=== PATIENT | male | born 1955 | race Caucasian/White ===

== ENCOUNTER 2023-07-04 08:27 | Inpatient (IN) ==
[2023-07-04] MEDS: SODIUM CHLORIDE 0.9% 1,000 ML IV SCH (08:55)
[2023-07-04] MEDS: ACETAMINOPHEN 1,000 MG/100 ML VIAL IV STA (08:58)
[2023-07-04 09:13] LABS: Basophils # (auto) 0.04 K/uL (0.00-0.20); Basophils % (auto) 0.6 %; Eosinophils # (auto) 0.22 K/uL (0.00-0.50); Eosinophils % (auto) 3.3 %; Hematocrit (blood only) 47.2 % (42.0-52.0); Hemoglobin 16.4 g/dl (14.0-18.0); Immature Granulocytes # (auto) 0.01 K/uL (0.01-0.20); Immature Granulocytes % (auto) 0.1 %; Lymphocytes # (auto) 0.98 K/uL (1.20-3.40); Lymphocytes % (auto) 14.6 %; Mean Corpuscular Hemoglobin 30.2 pg (25.0-34.0); Mean Corpuscular Hgb Conc 34.7 g/dL (32.0-36.0); Mean Corpuscular Volume 86.9 fL (80.0-100.0); Mean Platelet Volume 11.3 fL (9.4-12.4); Monocytes % (auto) 7.5 %; Neutrophils # (auto) 4.94 K/uL (1.40-6.50); Neutrophils % (auto) 73.9 %; Platelet Count 188 K/uL (130-400); RDW Coefficient of Variation 14.8 % (11.5-14.5); RDW Standard Deviation 46.8 fL (36.4-46.3); Red Blood Count 5.43 M/uL (4.70-6.10); White Blood Count 6.69 K/ul (4.8-10.8)
[2023-07-04] MEDS: OPTIRAY 320 125ml IV ONE ×2 (09:13→18:32)
[2023-07-04 09:16] LABS: iSTAT Creatinine 1.1 mg/dl (0.6-1.3); iSTAT Ionized Calcium 1.08 mmol/l (1.12-1.32)
--- NOTE | 2023-07-04 09:23 | Emergency Department Note ---
Impression & Plan Dizziness, Headache, Vision changes, Hypertension ED Provider Note ED Provider Note NAME: ELVIRA WILKS AGE:68 SEX: Male : 1955 ARRIVES VIA: Private vehicle INFORMANT: Patient, ED PROVIDER(s): Yee Hahn DO CHIEF COMPLAINT: Dizziness, headaches, high blood pressure HPI: This is a 68-year-old male presents emergency department with dizziness, headaches, high blood pressure. states he has been having episodes of headaches and blurred vision over the last several weeks of they have been trying to change his blood pressure medication for better control. They feel he is having side effects of these and are scheduled to see their family doctor today to discuss this. He states yesterday evening headache started worsening and he had blurred vision into the overnight. Around 1 AM he had an episode of vomiting and then became more dizzy and the headache started to subside. He states that this time he feels no headache just significant dizziness. He does have a very remote history of vertigo and states this is worse. He states he also now has double vision. He states he feels that the left upper extremity is slightly weak and hypersensitive. He denies chest pain, difficulty breathing, abdominal pain, leg weakness, neck or back pain. denies any recent change in speech or voice. PAST MEDICAL HISTORY:See Below PAST SURGICAL HISTORY:See Below FAMILY HISTORY:See Below SOCIAL HISTORY:See Below HOME MEDICATIONS:See Below ALLERGIES:See Below VITALS:See Below PHYSICAL EXAMINATION: GENERAL: alert, ill appearing, well nourished, moderate distress, non-toxic EYE EXAM: normal conjunctiva, PERRL and EOM's grossly intact, no nystagmus OROPHARYNX: no exudate, no erythema, lips, buccal mucosa, and tongue normal and mucous membranes are moist NECK: supple, no nuchal rigidity, no adenopathy, non-tender LUNGS: Clear to auscultation. Normal chest wall mechanics, no w/r/r HEART: no murmurs, S1 normal and S2 normal ABDOMEN: abdomen soft, non-tender, normo-active bowel sounds, no masses, no rebound or guarding. BACK: Back is symmetrical on inspection and there is no deformity, no midline tenderness, no CVA tenderness. SKIN: no rashes, petechiae, orbruising UPPER EXTREMITIES: upper extremities are grossly normal. FROM, nml pulses b/l. Subjective hypersensitivity with light touch to left upper extremity, slightly decreased handgrip compared to right. Clubbing noted bilateral digits with yellow discoloration from tobacco abuse. LOWER EXTREMITIES: No pitting edema. FROM, nml pulses b/l. Equal strength bilaterally. NEURO EXAM: Normal sensorium, cranial nerves II-XII grossly intact, normal speech, no facial droop,nogross weakness of arms, no gross weakness of legs. Gross sensation intact. No ataxia. Vital Signs: reviewed and remarkable Differential Diagnosis: benign positional vertigo, dehydration, hypovolemia, anemia, tumor, hypoglycemia, electrolyte abnormalities, ICH, CVA, dysrhythmia, as well as others were entertained. MEDICAL DECISION MAKING: This is a 68-year-old male presents emergency room due to concern for recent headaches, vision changes, and significant dizziness and was found to have significant hypertension. Patient with history of hypertension but they have had difficulty managing as an outpatient per patient and family report. Patient noted to be significantly hypertensive here on arrival however other vital signs stable. Labs drawn and sent, IV established, EKG and CXR performed and interpreted at bedside, and patient placed on telemetry. Patient sent for CT/CTA. No acute findings or CVA noted. Patient did respond to IV hydralazine, and caution was used to allow some permissive hypertension given his history. He was also given IV Valium for his persistent vertigo as well as in consideration for prior history of alcohol abuse. Patient did have some improvement but not resolution of his symptoms. Patient did require additional IV hydralazine. Due to concern for significant hypertension and symptoms, consideration for hypertensive emergency or posterior CVA, as well as need for other symptomatic control, case discussed with the hospitalist team for additional evaluation and management. Consultation(s): 1420: DIscussed with DENISE Fuentes, [facility] hospitalist team, for additional evaluation and mgmt. ER Treatment Provided: See below Diagnostics Interpreted By Me: -ECG: Sinus bradycardia at 58, normal axis, normal intervals, nonspecific ST/T wave changes -Cardiac Monitoring: An order was placed for continuous cardiac monitoring. The monitor shows a rate of 58 with sinus bradycardia rhythm. -Laboratory studies: As stated above and show below. -Imaging studies: X-ray Chest: A single view study of the chest was reviewed and was negative for cardiomegaly, focal infiltrate, effusion, pulmonary edema, or wide mediastinum. Triage Nursing Note Reviewed Prior/Outside Records Reviewed Critical Care: Past Med/Surg History Medical History CKD (chronic kidney disease) stage 3, GFR 30-59 ml/min Hypertension Family History Father Stroke Brother Stroke Social History (Updated 07/04/23 @ 15:06 by Gina Saldana PA-C) Smoking Status: Current every day smoker Tobacco Type: Cigarettes Age Started Using Tobacco: 11; Hx Alcohol Use: Yes Alcohol Intake Frequency Comment: abstinent for 39 years Hx Substance Use: Yes Non-Prescribed Medications: Marijuana Preferred Language: Amharic Feels Safe at Home: Yes Allergies Allergies Allergy/AdvReac Type Severity Reaction Status Date / Time NONE Allergy Unknown Uncoded 11/29/02 05:57 Home Meds Home Medications Medication Instructions Recorded Confirmed carvedilol 25 mg tablet 25 mg PO QAM 07/04/23 07/04/23 felodipine 10 mg tablet,extended 10 mg PO QAM 07/04/23 07/04/23 release 24 hr loratadine 10 mg tablet (Claritin) 10 mg PO DAILY PRN ALLERGIES 07/04/23 07/04/23 losartan 100 mg tablet 100 mg PO DAILY 07/04/23 07/04/23 Results & Data (ED) Vital Signs Vital Signs - 24 hr 07/04/23 08:31 07/04/23 08:39 07/04/23 09:30 Temperature 36.9 C Temperature Source Temporal Artery Scan Pulse Rate 62 49 L Pulse Rate [Apical] 53 L Pulse Rate from SpO2 Sensor Respiratory Rate 16 14 12 Respiratory Effort / Characteristics Non-Labored Respiratory Depth Normal Blood Pressure 219/121 H Blood Pressure [Right Arm] 221/138 H Blood Pressure Mean 153 Blood Pressure Mean [Right Arm] 165 Pulse Oximetry 97 Oxygen Delivery Method Room Air Room Air Sepsis Recent Fever Within 48 Hours No Sepsis New/Unexplained Change in Mental Status No Sepsis Action Taken by Nursing No Action Required 07/04/23 09:31 07/04/23 09:31 07/04/23 10:00 Temperature Temperature Source Pulse Rate 57 L 71 Pulse Rate [Apical] Pulse Rate from SpO2 Sensor 53 L 69 Respiratory Rate 12 24 Respiratory Effort / Characteristics Respiratory Depth Blood Pressure 202/95 H Blood Pressure [Right Arm] Blood Pressure Mean 123 Blood Pressure Mean [Right Arm] Pulse Oximetry 96 97 Oxygen Delivery Method Room Air Sepsis Recent Fever Within 48 Hours Sepsis New/Unexplained Change in Mental Status Sepsis Action Taken by Nursing 07/04/23 10:05 07/04/23 10:05 07/04/23 10:30 Temperature Temperature Source Pulse Rate 61 Pulse Rate [Apical] Pulse Rate from SpO2 Sensor 58 L Respiratory Rate Respiratory Effort / Characteristics Respiratory Depth Blood Pressure 178/89 H 185/95 H Blood Pressure [Right Arm] Blood Pressure Mean 141 126 Blood Pressure Mean [Right Arm] Pulse Oximetry 96 Oxygen Delivery Method Room Air Sepsis Recent Fever Within 48 Hours Sepsis New/Unexplained Change in Mental Status Sepsis Action Taken by Nursing 07/04/23 10:30 07/04/23 11:00 07/04/23 11:00 Temperature Temperature Source Pulse Rate 53 L 59 L Pulse Rate [Apical] Pulse Rate from SpO2 Sensor 56 L Respiratory Rate 20 14 Respiratory Effort / Characteristics Respiratory Depth Blood Pressure 172/99 H Blood Pressure [Right Arm] Blood Pressure Mean 107 Blood Pressure Mean [Right Arm] Pulse Oximetry 96 Oxygen Delivery Method Room Air Sepsis Recent Fever Within 48 Hours Sepsis New/Unexplained Change in Mental Status Sepsis Action Taken by Nursing 07/04/23 11:30 07/04/23 11:30 07/04/23 12:00 Temperature Temperature Source Pulse Rate 55 L Pulse Rate [Apical] Pulse Rate from SpO2 Sensor 55 L Respiratory Rate 14 Respiratory Effort / Characteristics Respiratory Depth Blood Pressure 159/85 H 171/95 H Blood Pressure [Right Arm] Blood Pressure Mean 120 125 Blood Pressure Mean [Right Arm] Pulse Oximetry 95 Oxygen Delivery Method Room Air Sepsis Recent Fever Within 48 Hours Sepsis New/Unexplained Change in Mental Status Sepsis Action Taken by Nursing 07/04/23 12:00 07/04/23 12:30 07/04/23 12:30 Temperature Temperature Source Pulse Rate 52 L 52 L Pulse Rate [Apical] Pulse Rate from SpO2 Sensor 52 L 53 L Respiratory Rate 20 19 Respiratory Effort / Characteristics Respiratory Depth Blood Pressure 181/86 H Blood Pressure [Right Arm] Blood Pressure Mean 147 Blood Pressure Mean [Right Arm] Pulse Oximetry 97 96 Oxygen Delivery Method Room Air Room Air Sepsis Recent Fever Within 48 Hours Sepsis New/Unexplained Change in Mental Status Sepsis Action Taken by Nursing 07/04/23 13:00 07/04/23 13:01 07/04/23 13:01 Temperature Temperature Source Pulse Rate 78 75 Pulse Rate [Apical] Pulse Rate from SpO2 Sensor 78 Respiratory Rate 15 16 Respiratory Effort / Characteristics Respiratory Depth Blood Pressure 181/103 H Blood Pressure [Right Arm] Blood Pressure Mean 117 Blood Pressure Mean [Right Arm] Pulse Oximetry 96 Oxygen Delivery Method Room Air Sepsis Recent Fever Within 48 Hours Sepsis New/Unexplained Change in Mental Status Sepsis Action Taken by Nursing 07/04/23 13:30 07/04/23 13:31 07/04/23 13:31 Temperature Temperature Source Pulse Rate 60 64 Pulse Rate [Apical] Pulse Rate from SpO2 Sensor Respiratory Rate 21 17 Respiratory Effort / Characteristics Respiratory Depth Blood Pressure 179/92 H Blood Pressure [Right Arm] Blood Pressure Mean 102 Blood Pressure Mean [Right Arm] Pulse Oximetry Oxygen Delivery Method Sepsis Recent Fever Within 48 Hours Sepsis New/Unexplained Change in Mental Status Sepsis Action Taken by Nursing 07/04/23 14:00 07/04/23 14:01 07/04/23 14:01 Temperature Temperature Source Pulse Rate 55 L 57 L Pulse Rate [Apical] Pulse Rate from SpO2 Sensor 59 L 58 L Respiratory Rate 17 18 Respiratory Effort / Characteristics Respiratory Depth Blood Pressure 183/100 H Blood Pressure [Right Arm] Blood Pressure Mean 122 Blood Pressure Mean [Right Arm] Pulse Oximetry 95 94 Oxygen Delivery Method Room Air Room Air Sepsis Recent Fever Within 48 Hours Sepsis New/Unexplained Change in Mental Status Sepsis Action Taken by Nursing 07/04/23 14:30 07/04/23 14:30 07/04/23 15:00 Temperature Temperature Source Pulse Rate 56 L 54 L Pulse Rate [Apical] Pulse Rate from SpO2 Sensor 62 57 L Respiratory Rate 15 14 Respiratory Effort / Characteristics Respiratory Depth Blood Pressure 166/111 H 195/89 H Blood Pressure [Right Arm] Blood Pressure Mean 130 124 Blood Pressure Mean [Right Arm] Pulse Oximetry 96 96 Oxygen Delivery Method Room Air Sepsis Recent Fever Within 48 Hours Sepsis New/Unexplained Change in Mental Status Sepsis Action Taken by Nursing Laboratory Data 07/04/23 08:52 07/04/23 08:52 Lab Results 07/04/23 07/04/23 07/04/23 Range/Units 08:52 09:02 15:01 WBC 6.69 (4.8-10.8) K/ul RBC 5.43 (4.70-6.10) M/uL Hgb 16.4 (14.0-18.0) g/dl POC Hgb 17.0 (14.0-18.0) g/dl Hct 47.2 (42.0-52.0) % POC Hct 50 (42-52) % MCV 86.9 (80.0-100.0) fL MCH 30.2 (25.0-34.0) pg MCHC 34.7 (32.0-36.0) g/dL RDW Std Deviation 46.8 H (36.4-46.3) fL RDW Coeff of Tova 14.8 H (11.5-14.5) % Plt Count 188 (130-400) K/uL MPV 11.3 (9.4-12.4) fL Immature Gran % (Auto) 0.1 % Neut % (Auto) 73.9 % Lymph % (Auto) 14.6 % Pepin % (Auto) 7.5 % Eos % (Auto) 3.3 % Baso % (Auto) 0.6 % Neut # (Auto) 4.94 (1.40-6.50) K/uL Lymph # (Auto) 0.98 L (1.20-3.40) K/uL Pepin # (Auto) 0.50 (0.11-0.59) K/uL Eos # (Auto) 0.22 (0.00-0.50) K/uL Baso # (Auto) 0.04 (0.00-0.20) K/uL Immature Gran # (Auto) 0.01 (0.01-0.20) K/uL POC Sodium 140 (135-144) mmol/L Sodium 137 (136-145) mmol/L POC Potassium 4.0 (3.3-5.0) mmol/L Potassium 4.0 (3.5-5.1) mmol/L POC Chloride 106 (101-112) mmol/L Chloride 107 (98-107) mmol/L Carbon Dioxide 25 (21-32) mmol/L POC Total CO2 23 L (24-31) mmol/L Anion Gap 5 (3-11) POC Anion Gap 17.0 (16-25) mmol/L POC BUN 20 H (7-18) mg/dl BUN 19 (6-23) mg/dl Creatinine 1.11 (0.6-1.4) mg/dl POC Creatinine 1.1 (0.6-1.3) mg/dl Est Cr Clr Drug Dosing Not Reportable Est GFR ( Amer) 78.1 ml/min Est GFR (Non-Af Amer) 67.4 ml/min BUN/Creatinine Ratio 17.1 (10-20) Glucose 117 H (70-99(Fasting)) mg/dl POC Glucose (other) 117 H (70-99) mg/dl Calcium 9.3 (8.6-10.3) mg/dl POC Ioniz Calcium Jasson 1.08 L (1.12-1.32) mmol/l Magnesium 2.0 (1.7-2.4) mg/dl Total Bilirubin 0.7 (0.2-1.0) mg/dl AST 10 L (13-39) U/L ALT 8 (7-52) U/L Alkaline Phosphatase 62 (34-104) U/L Troponin I High Sens 18.9 (0-20) pg/ml Total Protein 7.7 (6.0-8.3) gm/dl Albumin 4.5 (3.4-5.0) gm/dl Globulin 3.2 (2.5-4.0) gm/dl Albumin/Globulin Ratio 1.4 (0.9-2) Lipase 4 L (11-82) U/L TSH 1.494 (0.300-4.500) uIu/ml Urine Color Yellow Urine Appearance Clear (Clear) Urine pH 7.0 (4.5-7.5) Ur Specific [place] 1.021 (1.000-1.030) Urine Protein 1+ H (Negative) Urine Glucose (UA) Negative (Negative) Urine Ketones Negative (Negative) Urine Blood Negative (Negative) Urine Nitrite Negative (Negative) Urine Bilirubin Negative (Negative) Urine Urobilinogen Negative (Negative) Ur Leukocyte Esterase Negative (Negative) Urine WBC (Auto) 0 (0-5) /hpf Urine RBC (Auto) 0-4 (0-4) /hpf U Hyaline Cast (Auto) 0 (0-5) /lpf U Epithel Cells (Auto) 5-10 H (0-5) /lpf Urine Bacteria (Auto) Negative (Negative) Ur Random Creatinine 51.4 mg/dl U Random Total Protein 37.7 H (0-11.9) mg/dl Protein/Creatinin Ratio 0.7 H (0-0.2) 07/04/23 Range/Units 15:34 WBC (4.8-10.8) K/ul RBC (4.70-6.10) M/uL Hgb (14.0-18.0) g/dl POC Hgb (14.0-18.0) g/dl Hct (42.0-52.0) % POC Hct (42-52) % MCV (80.0-100.0) fL MCH (25.0-34.0) pg MCHC (32.0-36.0) g/dL RDW Std Deviation (36.4-46.3) fL RDW Coeff of Tova (11.5-14.5) % Plt Count (130-400) K/uL MPV (9.4-12.4) fL Immature Gran % (Auto) % Neut % (Auto) % Lymph % (Auto) % Pepin % (Auto) % Eos % (Auto) % Baso % (Auto) % Neut # (Auto) (1.40-6.50) K/uL Lymph # (Auto) (1.20-3.40) K/uL Pepin # (Auto) (0.11-0.59) K/uL Eos # (Auto) (0.00-0.50) K/uL Baso # (Auto) (0.00-0.20) K/uL Immature Gran # (Auto) (0.01-0.20) K/uL POC Sodium (135-144) mmol/L Sodium (136-145) mmol/L POC Potassium (3.3-5.0) mmol/L Potassium (3.5-5.1) mmol/L POC Chloride (101-112) mmol/L Chloride (98-107) mmol/L Carbon Dioxide (21-32) mmol/L POC Total CO2 (24-31) mmol/L Anion Gap (3-11) POC Anion Gap (16-25) mmol/L POC BUN (7-18) mg/dl BUN (6-23) mg/dl Creatinine (0.6-1.4) mg/dl POC Creatinine (0.6-1.3) mg/dl Est Cr Clr Drug Dosing Est GFR ( Amer) ml/min Est GFR (Non-Af Amer) ml/min BUN/Creatinine Ratio (10-20) Glucose (70-99(Fasting)) mg/dl POC Glucose (other) (70-99) mg/dl Calcium (8.6-10.3) mg/dl POC Ioniz Calcium Jasson (1.12-1.32) mmol/l Magnesium (1.7-2.4) mg/dl Total Bilirubin (0.2-1.0) mg/dl AST (13-39) U/L ALT (7-52) U/L Alkaline Phosphatase (34-104) U/L Troponin I High Sens 20.0 (0-20) pg/ml Total Protein (6.0-8.3) gm/dl Albumin (3.4-5.0) gm/dl Globulin (2.5-4.0) gm/dl Albumin/Globulin Ratio (0.9-2) Lipase (11-82) U/L TSH (0.300-4.500) uIu/ml Urine Color Urine Appearance (Clear) Urine pH (4.5-7.5) Ur Specific [place] (1.000-1.030) Urine Protein (Negative) Urine Glucose (UA) (Negative) Urine Ketones (Negative) Urine Blood (Negative) Urine Nitrite (Negative) Urine Bilirubin (Negative) Urine Urobilinogen (Negative) Ur Leukocyte Esterase (Negative) Urine WBC (Auto) (0-5) /hpf Urine RBC (Auto) (0-4) /hpf U Hyaline Cast (Auto) (0-5) /lpf U Epithel Cells (Auto) (0-5) /lpf Urine Bacteria (Auto) (Negative) Ur Random Creatinine mg/dl U Random Total Protein (0-11.9) mg/dl Protein/Creatinin Ratio (0-0.2) Administered Medications Sodium Chloride (Nss) 1,000 mls @ 125 mls/hr IV .Q8H JAYLYN Stop: 08/03/23 08:59 Last Infusion: 07/04/23 13:18 Dose: Infused Documented By: Admin: 07/04/23 08:55 Dose: 125 mls/hr Documented By: OSIEL Nicardipine HCl 25 mg/ Sodium (Chloride) 250 mls @ 50 mls/hr IV .Q5H JAYLYN; Protocol Stop: 08/03/23 14:29 Last Admin: 07/04/23 14:47 Dose: 5 mg/hr, 50 mls/hr Documented By: OSIEL Co-signed By: BK Discontinued Medications Diazepam (Diazepam 5 Mg/Ml 10ml Vial) 2 mg IV NOW STA Stop: 07/04/23 10:32 Last Admin: 07/04/23 10:54 Dose: 2 mg Documented By: OSIEL Hydralazine HCl (Hydralazine Hcl 20 Mg/Ml Vial) 5 mg IV NOW ONE Stop: 07/04/23 09:30 Last Admin: 07/04/23 09:47 Dose: 5 mg Documented By: OSIEL Hydralazine HCl (Hydralazine Hcl 20 Mg/Ml Vial) 5 mg IV NOW ONE Stop: 07/04/23 13:06 Last Admin: 07/04/23 13:18 Dose: 5 mg Documented By: OSIEL Acetaminophen (Ofirmev) 1,000 mg in 100 mls @ 400 mls/hr IV NOW STA Stop: 07/04/23 09:00 Last Infusion: 07/04/23 09:13 Dose: Infused Documented By: Admin: 07/04/23 08:58 Dose: 400 mls/hr Documented By: OSIEL Ioversol (Optiray 320 125ml) 118 ml IV ONCE ONE Stop: 07/04/23 09:21 Last Admin: 07/04/23 09:13 Dose: 118 ml Documented By: BELINDA Imaging Data Radiologist's Impression: Head CT 07/04/23 08:46 CT OF THE HEAD WITHOUT CONTRAST CLINICAL HISTORY: dizzy, garza, vision change, htn COMPARISON STUDY: Head CT July 28, 2011. CT DOSE: 969.54 mGy.cm TECHNIQUE: Helical axial images of the head were obtained without IV contrast. Automated exposure control was utilized for the study. A dose lowering technique was utilized adhering to the principles of ALARA. FINDINGS: No acute intracranial hemorrhage, midline shift or mass effect is present. White matter hypodensity suggests small vessel disease. The ventricular system is unremarkable. The basal cisterns are patent. No extra-axial collections are present. There are no findings to suggest acute dural sinus thrombosis or acute territorial infarct. No calvarial fracture is present. There is minimal ethmoid sinus mucosal thickening. IMPRESSION: No acute intracranial findings. ACT 112: Negative or not required by law. Electronically signed by: Judson White M.D. 07/04/2023 9:24 AM Head CTA 07/04/23 08:46 CT angio head w con CLINICAL HISTORY: 68 years-old Male with dizzy, garza, htn, vision change. Acute dizziness with headache COMPARISON STUDY: Head CT of same day TECHNIQUE: Following the IV administration of 118 cc of Optiray, CT angiogram of the brain was performed from the skull base to the vertex. Images are reviewed in the axial, sagittal, and coronal planes. 3-D MIPS images are created and assessed. IV contrast was administered without complication. All measurements were obtained according to NASCET criteria. A dose lowering technique was utilized adhering to the principles of ALARA. FINDINGS: CT ANGIOGRAM OF THE BRAIN: Atherosclerosis with mild to moderate narrowing of the distal internal carotid arteries. There is moderate multifocal stenoses involving the middle cerebral arteries, most pronounced in the M1 segments. The anterior cerebral arteries are widely patent. The vertebral arteries are patent. Mild stenosis of the mid basilar artery with mild multifocal stenosis of the posterior cerebral arteries. There is no aneurysm, high-grade stenosis, or proximal branch occlusion identified. Dural sinuses appear patent. IMPRESSION: 1. No aneurysm, dissection, high-grade stenosis or arterial occlusion. 2. Mild to moderate multifocal stenoses of the intracranial arteries as above. ACT 112: Negative or not required by law. The above report was generated using voice recognition software. It may contain grammatical, syntax or spelling errors. Electronically signed by: Ervin Messina M.D. 07/04/2023 9:56 AM Neck CTA 07/04/23 08:46 CT ANGIOGRAPHY OF THE NECK WITH CONTRAST CLINICAL HISTORY: dizzy, garza, htn, vision change COMPARISON STUDY: No previous studies for comparison. Technique: CT angiography of the carotid and vertebral arteries was obtained using Optiray and 3D reconstruction on an independent workstation. NASCET criteria was utilized. Automated exposure control was utilized for the study. A dose lowering technique was utilized adhering to the principles of ALARA. Findings: Moderate emphysema is incidentally noted within visualized portions of the lung apices. There is no cervical lymphadenopathy. No cervical spine fracture is noted. There is moderate atherosclerotic plaque within the left carotid bifurcation without significant stenosis. There is mild plaque within the proximal right internal carotid artery without stenosis. The left vertebral artery is dominant. There is no stenosis or dissection within the bilateral vertebral arteries. IMPRESSION: 1. Moderate atherosclerotic plaque within the left carotid bifurcation without significant stenosis. 2. No dissection, aneurysm or significant stenosis within the major vessels within the neck. 3. Emphysema. ACT 112: Negative or not required by law. Electronically signed by: Judson White M.D. 07/04/2023 9:34 AM Chest X-Ray 07/04/23 08:47 XR chest 1V portable CLINICAL HISTORY: Hypertension. Vomiting. COMPARISON STUDY: Chest radiograph and chest CT July 28, 2011. FINDINGS: Emphysema is present. Lung volumes are normal. Lungs are clear. There is no pneumothorax or pleural effusion. There is mild cardiomegaly. Mediastinal contours are normal. There is no evidence for pulmonary edema. IMPRESSION: No acute cardiopulmonary findings. Emphysema. ACT 112: Negative or not required by law. Electronically signed by: Judson White M.D. 07/04/2023 9:40 AM Renal Artery Duplex 07/04/23 15:29 US duplex renal artery CLINICAL HISTORY: Evaluate for renal artery stenosis. COMPARISON STUDY: No previous studies for comparison. TECHNIQUE: Color and duplex Doppler sonography of the abdominal aorta and renal arteries was performed. FINDINGS: The proximal abdominal aorta is ectatic, measuring approximately 2.7 cm in caliber. There is moderate plaque within the proximal abdominal aorta. Peak systolic velocity within the abdominal aorta was 53 cm/s. Bilateral renal arteries and veins are patent. There was no hydronephrosis. Peak systolic velocity within the right renal artery was 190 cm/s. There was an elevated peak systolic velocity of 390 cm/s within the proximal left renal artery. Segmental waveforms within the kidneys were normal. IMPRESSION: 1. Significantly elevated velocity within the proximal left renal artery suggestive of renal artery stenosis. CTA of the abdomen could be obtained for confirmation. 2. No definite sonographic evidence for right renal artery stenosis. 3. Ectatic proximal abdominal aorta with moderate plaque. ACT 112: Negative or not required by law. Electronically signed by: Judson White M.D. 07/04/2023 4:53 PM Discharge Plan Visit Data Chief Complaint: TIA Symptoms Stated Complaint: DIZZINESS, LIGHTHEADED, BLURRED VISION, HIGH BP ED Provider: Yee Hahn Discharge Problem: Dizziness, Headache, Vision changes, Hypertension Forms Stand Alone Forms: [employer] Prescriptions Prescriptions: No Action carvedilol 25 mg tablet 25 mg PO QAM Rx Instructions: Patients stated that her has only been taking once a day felodipine 10 mg tablet extended release 24 hr 10 mg PO QAM loratadine [Claritin] 10 mg Tablet 10 mg PO DAILY PRN (Reason: ALLERGIES) losartan 100 mg tablet 100 mg PO DAILY Referrals Referrals: Duran Green MD [Primary Care Provider] -
--- NOTE | 2023-07-04 09:25 | CT Scan Report ---
CT OF THE HEAD WITHOUT CONTRAST CLINICAL HISTORY: dizzy, garza, vision change, htn COMPARISON STUDY: Head CT July 28, 2011. CT DOSE: 969.54 mGy.cm TECHNIQUE: Helical axial images of the head were obtained without IV contrast. Automated exposure con trol was utilized for the study. A dose lowering technique was utilized adhering to the principles o f ALARA. FINDINGS: No acute intracranial hemorrhage, midline shift or mass effect is present. White matter hyp odensity suggests small vessel disease. The ventricular system is unremarkable. The basal cisterns ar e patent. No extra-axial collections are present. There are no findings to suggest acute dural sinus thrombosis or acute territorial infarct. No calvarial fracture is present. There is minimal ethmoid s inus mucosal thickening. IMPRESSION: No acute intracranial findings. ACT 112: Negative or not required by law. Electronically signed by: Judson White M.D. 07/04/2023 9:24 AM
[2023-07-04 09:29] LABS: Alanine Aminotransferase 8 U/L (7-52); Albumin Globulin Ratio 1.4 (0.9-2); Albumin Level 4.5 gm/dl (3.4-5.0); Alkaline Phosphatase 62 U/L (34-104); Anion Gap 5 (3-11); Aspartate Aminotransferase 10 U/L (13-39); BUN Creatinine Ratio 17.1 (10-20); Bilirubin,Total 0.7 mg/dl (0.2-1.0); Blood Urea Nitrogen 19 mg/dl (6-23); Calcium 9.3 mg/dl (8.6-10.3); Carbon Dioxide 25 mmol/L (21-32); Chloride 107 mmol/L (98-107); Est GFR (African American) 78.1 ml/min; Est GFR (Non-African American) 67.4 ml/min; Globulin 3.2 gm/dl (2.5-4.0); Glucose 117 mg/dl (70-99(Fasting)); Lipase 4 U/L (11-82); Sodium 137 mmol/L (136-145); Total Protein 7.7 gm/dl (6.0-8.3)
[2023-07-04 09:35] LABS: Troponin I High Sensitivity 18.9 pg/ml (0-20)
--- NOTE | 2023-07-04 09:37 | CT Scan Report ---
CT ANGIOGRAPHY OF THE NECK WITH CONTRAST CLINICAL HISTORY: dizzy, garza, htn, vision change COMPARISON STUDY: No previous studies for comparison. Technique: CT angiography of the carotid and vertebral arteries was obtained using Optiray and 3D rec onstruction on an independent workstation. NASCET criteria was utilized. Automated exposure control was utilized for the study. A dose lowering technique was utilized adhering to the principles of ALA RA. Findings: Moderate emphysema is incidentally noted within visualized portions of the lung apices. The re is no cervical lymphadenopathy. No cervical spine fracture is noted. There is moderate atheroscler otic plaque within the left carotid bifurcation without significant stenosis. There is mild plaque wi thin the proximal right internal carotid artery without stenosis. The left vertebral artery is domina nt. There is no stenosis or dissection within the bilateral vertebral arteries. IMPRESSION: 1. Moderate atherosclerotic plaque within the left carotid bifurcation without significant stenosis. 2. No dissection, aneurysm or significant stenosis within the major vessels within the neck. 3. Emphysema. ACT 112: Negative or not required by law. Electronically signed by: Judson White M.D. 07/04/2023 9:34 AM
--- NOTE | 2023-07-04 09:41 | XRay Report ---
XR chest 1V portable CLINICAL HISTORY: Hypertension. Vomiting. COMPARISON STUDY: Chest radiograph and chest CT July 28, 2011. FINDINGS: Emphysema is present. Lung volumes are normal. Lungs are clear. There is no pneumothorax or pleural effusion. There is mild cardiomegaly. Mediastinal contours are normal. There is no evidence for pulmonary edema. IMPRESSION: No acute cardiopulmonary findings. Emphysema. ACT 112: Negative or not required by law. Electronically signed by: Judson White M.D. 07/04/2023 9:40 AM
[2023-07-04 09:45] LABS: Thyroid Stimulating Hormone 1.494 uIu/ml (0.300-4.500)
[2023-07-04] MEDS: hydrALAZINE HCL 20 MG/ML VIAL IV ONE ×2 (09:47→13:18)
--- NOTE | 2023-07-04 09:58 | CT Scan Report ---
CT angio head w con CLINICAL HISTORY: 68 years-old Male with dizzy, garza, htn, vision change. Acute dizziness with heada sarai COMPARISON STUDY: Head CT of same day TECHNIQUE: Following the IV administration of 118 cc of Optiray, CT angiogram of the brain was perfor med from the skull base to the vertex. Images are reviewed in the axial, sagittal, and coronal planes . 3-D MIPS images are created and assessed. IV contrast was administered without complication. All me asurements were obtained according to NASCET criteria. A dose lowering technique was utilized adherin g to the principles of ALARA. FINDINGS: CT ANGIOGRAM OF THE BRAIN: Atherosclerosis with mild to moderate narrowing of the distal internal carotid arteries. There is mod erate multifocal stenoses involving the middle cerebral arteries, most pronounced in the M1 segments. The anterior cerebral arteries are widely patent. The vertebral arteries are patent. Mild stenosis o f the mid basilar artery with mild multifocal stenosis of the posterior cerebral arteries. There is n o aneurysm, high-grade stenosis, or proximal branch occlusion identified. Dural sinuses appear patent . IMPRESSION: 1. No aneurysm, dissection, high-grade stenosis or arterial occlusion. 2. Mild to moderate multifocal stenoses of the intracranial arteries as above. ACT 112: Negative or not required by law. The above report was generated using voice recognition software. It may contain grammatical, syntax o r spelling errors. Electronically signed by: Ervin Messina M.D. 07/04/2023 9:56 AM
[2023-07-04] MEDS: diazePAM 5 MG/ML 10ML VIAL IV STA (10:54)
--- NOTE | 2023-07-04 11:04 | Electrocardiogram Report ---
Test Reason : Blood Pressure : / mmHG Vent. Rate : 058 BPM Atrial Rate : 058 BPM P-R Int : 176 ms QRS Dur : 100 ms QT Int : 448 ms P-R-T Axes : 081 043 025 degrees QTc Int : 439 ms Sinus bradycardia Left atrial enlargement Left ventricular hypertrophy with repolarization abnormality Abnormal ECG When compared with ECG of 28-JUL-2011 10:07, Left ventricular hypertrophy with repolarization abnormality now present Confirmed by Luis Miguel Henson ([id number]) on 07/04/2023 11:03:59 AM Referred By: REFERRED SELF Confirmed By:Luis Miguel Henson
[2023-07-04] MEDS ORDERED: STAT IV Infusion **Titration per Protocol STA (14:20)
[2023-07-04] MEDS: niCARdipine 25 MG in SODIUM CHLORIDE 0.9% 240 ML IV SCH (14:47)
--- NOTE | 2023-07-04 15:09 | History & Physical Report ---
Date of Service July 04, 2023 Assessment & Plan (1) Hypertensive emergency: (2) Vision changes: (3) Tobacco abuse: Plan This is a 68 yr old M who has a significant PMH of HTN and CKD3 who presents to ED 2/2 double vision, GONZALEZ and dizziness since last night. Hypertensive emergency Visual changes (diplopia) Headache/Vertigo admit to PCU stroke work up obtain MRI brain w and w/o consult neurology obtain echocardiogram secondary hypertensive w/u with renal duplex, catecholamines, serum alexandru/renin place on nicardipine gtt for BP control hold home dose felodipine while on nicardipine hold coreg (pt bradycardic and ? if pt fatigue, malaise and dizziness related to low heart rate) resume losartan in a.m. CKD-3 baseline cr 1.3-1.4 cr. 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 Meyers, please see addendum A total of 76 minutes was spent coordinating, documenting, and providing care for this patient excluding time spent in the performance of separately billed services. This included personally viewing all current laboratories and imaging studies, medication reconciliation, outpatient chart review, and discussion with specialists. History of Present Illness Chief Complaint: GONZALEZ, double vision, dizziness x 1 day. Primary Care Provider: Duran Green MD This is a 68 yr old M who has a significant PMH of HTN and CKD3 who presents to ED 2/2 double vision, GONZALEZ and dizziness since last night. His outpatient PCP records were reviewed. is a bedside who also helps with history. He has a baseline cr of 1.3-1.4. He follows with Dr. Green and has been having difficulty with BP management over last several months. He has been managed on Losartan, coreg and felodipine. He states he hasn't felt right since taking these medications. Over the last 1 month he was taking all of his medications. He has been monitoring his BP at home. His blood pressure would be labile. He states he would feel best when his blood pressure ran high and when it would go lower with the medications he felt like, "crap." He did not take any medications this morning. He also has not been taking his losartan for the past week. Over the last month he denies any changes. He did have sinus congestion approx 2 weeks ago, but denies any fever and chills. He states he has been having chest pain off and on in ED, left sided, non radiating and would come and go. He feels SOB when he takes his BP medications. He states blurry/double vision started last night. Feels like objects are stacked on top of 1 another. He also complains of dizziness and feeling, "off balance." He denies any current fever, chills, sweats, lightheadedness, syncope, hemoptysis, cough, nausea, vomiting, abdominal pain, change in bowel or urinary habits. He has a positive FH of stroke. His father was 87 and his brother also had a stroke in past. In ED patient was significantly hypertensive despite 2 doses of IV hydralazine 5 mg. He underwent head CT, CTA and chest x-ray. Head CT revealed mild to moderate multifocal stenoses of the intracranial arteries but otherwise no acute abnormality. Emphysema also noted on chest x-ray. Allergies Allergy/AdvReac Type Severity Reaction Status Date / Time NONE Allergy Unknown Uncoded 11/29/02 05:57 Home Medications Medication Instructions Recorded Confirmed Type carvedilol 25 mg tablet 25 mg PO QAM 07/04/23 07/04/23 History felodipine 10 mg tablet,extended 10 mg PO QAM 07/04/23 07/04/23 History release 24 hr loratadine 10 mg tablet (Claritin) 10 mg PO DAILY PRN ALLERGIES 07/04/23 07/04/23 History losartan 100 mg tablet 100 mg PO DAILY 07/04/23 07/04/23 History Past Med/Surg History Medical History CKD (chronic kidney disease) stage 3, GFR 30-59 ml/min Hypertension Family History Father Stroke Brother Stroke Social History (Updated 07/04/23 @ 15:06 by Gina Saldana PA-C) Smoking Status: Current every day smoker Tobacco Type: Cigarettes Age Started Using Tobacco: 11; Hx Alcohol Use: Yes Alcohol Intake Frequency Comment: abstinent for 39 years Hx Substance Use: Yes Non-Prescribed Medications: Marijuana Preferred Language: Kinyarwanda Feels Safe at Home: Yes Review of Systems Review of Systems: All systems reviewed & are unremarkable except as noted in HPI & below Physical Exam Physical Exam: please refer to Dr. Meyers addendum for physical exam findings. Results & Data Results & Data Vital Signs (Past 12 Hours) Vital Signs Temp Pulse Pulse Resp BP BP Pulse Ox 07/04/23 14:01 57 L 18 94 07/04/23 14:01 183/100 H 07/04/23 14:00 55 L 17 95 07/04/23 13:31 64 17 07/04/23 13:31 179/92 H 07/04/23 13:30 60 21 07/04/23 13:01 75 16 07/04/23 13:01 181/103 H 07/04/23 13:00 78 15 96 07/04/23 12:30 52 L 19 96 07/04/23 12:30 181/86 H 07/04/23 12:00 52 L 20 97 07/04/23 12:00 171/95 H 07/04/23 11:30 55 L 14 95 07/04/23 11:30 159/85 H 07/04/23 11:00 59 L 14 96 07/04/23 11:00 172/99 H 07/04/23 10:30 53 L 20 07/04/23 10:30 185/95 H 07/04/23 10:05 61 96 07/04/23 10:05 178/89 H 07/04/23 10:00 71 24 97 07/04/23 09:31 57 L 12 96 07/04/23 09:31 202/95 H 07/04/23 09:30 49 L 12 07/04/23 08:39 53 L 14 221/138 H 07/04/23 08:31 36.9 C 62 16 219/121 H 97 O2 Del Method 07/04/23 14:01 Room Air 07/04/23 14:01 07/04/23 14:00 Room Air 07/04/23 13:31 07/04/23 13:31 07/04/23 13:30 07/04/23 13:01 07/04/23 13:01 07/04/23 13:00 Room Air 07/04/23 12:30 Room Air 02/06/24 12:30 07/04/23 12:00 Room Air 07/04/23 12:00 07/04/23 11:30 Room Air 07/04/23 11:30 07/04/23 11:00 Room Air 07/04/23 11:00 07/04/23 10:30 07/04/23 10:30 07/04/23 10:05 Room Air 07/04/23 10:05 07/04/23 10:00 07/04/23 09:31 Room Air 07/04/23 09:31 07/04/23 09:30 07/04/23 08:39 Room Air 07/04/23 08:31 Room Air Laboratory Results I have independently reviewed and interpreted patient's admitting labs including CBC, CMP, PTT, PT/INR, mag, lipase and troponin. Diagnostic Findings Head CT 07/04/23 08:46 CT OF THE HEAD WITHOUT CONTRAST CLINICAL HISTORY: dizzy, gonzalez, vision change, htn COMPARISON STUDY: Head CT July 28, 2011. CT DOSE: 969.54 mGy.cm TECHNIQUE: Helical axial images of the head were obtained without IV contrast. Automated exposure control was utilized for the study. A dose lowering t echnique was utilized adhering to the principles of ALARA. FINDINGS: No acute intracranial hemorrhage, midline shift or mass effect is present. White matter hypodensity suggests small vessel disease. The ventricular system is unremarkable. The basal cisterns are patent. No extra-axial collections are present. There are no findings to suggest acute dural sinus thrombosis or acute territorial infarct. No calvarial fracture is present. There is minimal ethmoid sinus mucosal thickening. IMPRESSION: No acute intracranial findings. ACT 112: Negative or not required by law. Electronically signed by: Judson White M.D. 07/04/2023 9:24 AM Head CTA 07/04/23 08:46 CT angio head w con CLINICAL HISTORY: 68 years-old Male with dizzy, gonzalez, htn, vision change. Acute dizziness with headache COMPARISON STUDY: Head CT of same day TECHNIQUE: Following the IV administration of 118 cc of Optiray, CT angiogram of the brain was performed from the skull base to the vertex. Images are reviewed in the axial, sagittal, and coronal planes. 3-D MIPS images are created and assessed. IV contrast was administered without complication. All measurements we re obtained according to NASCET criteria. A dose lowering technique was utilized adhering to the principles of ALARA. FINDINGS: CT ANGIOGRAM OF THE BRAIN: Atherosclerosis with mild to moderate narrowing of the distal internal carotid arteries. There is moderate multifocal stenoses involving the middle cerebral arteries, most pronounced in the M1 segments. The anterior cerebral arteries are widely patent. The vertebral arteries are patent. Mild stenosis of the mid basilar artery with mild multifocal stenosis of the posterior cerebral arteries. There is no aneurysm, high-grade stenosis, or proximal branch occlusion identified. Dural sinuses appear patent. IMPRESSION: 1. No aneurysm, dissection, high-grade stenosis or arterial occlusion. 2. Mild to moderate multifocal stenoses of the intracranial arteries as above. ACT 112: Negative or not required by law. The above report was generated using voice recognition software. It may contain grammatical, syntax or spelling errors. Electronically signed by: Ervin Messina M.D. 07/04/2023 9:56 AM Neck CTA 07/04/23 08:46 CT ANGIOGRAPHY OF THE NECK WITH CONTRAST CLINICAL HISTORY: dizzy, gonzalez, htn, vision change COMPARISON STUDY: No previous studies for comparison. Technique: CT angiography of the carotid and vertebral arteries was obtained using Optiray and 3D reconstruction on an independent workstation. NASCET criteria was utilized. Automated exposure control was utilized for the study. A dose lowering technique was utilized adhering to the principles of ALARA. Findings: Moderate emphysema is incidentally noted within visualized portions of the lung apices. There is no cervical lymphadenopathy. No cervical spine fracture is noted. There is moderate atherosclerotic plaque within the left carotid bifurcation without significant stenosis. There is mild plaque within the proximal right internal carotid artery without stenosis. The left vertebral artery is dominant. There is no stenosis or dissection within the bilateral vertebral arteries. IMPRESSION: 1. Moderate atherosclerotic plaque within the left carotid bifurcation without significant stenosis. 2. No dissection, aneurysm or significant stenosis within the major vessels within the neck. 3. Emphysema. ACT 112: Negative or not required by law. Electronically signed by: Judson White M.D. 07/04/2023 9:34 AM Chest X-Ray 07/04/23 08:47 XR chest 1V portable CLINICAL HISTORY: Hypertension. Vomiting. COMPARISON STUDY: Chest radiograph and chest CT July 28, 2011. FINDINGS: Emphysema is present. Lung volumes are normal. Lungs are clear. There is no pneumothorax or pleural effusion. There is mild cardiomegaly. Mediastinal contours are normal. There is no evidence for pulmonary edema. IMPRESSION: No acute cardiopulmonary findings. Emphysema. ACT 112: Negative or not required by law. Electronically signed by: Judson White M.D. 07/04/2023 9:40 AM Medications Administered Medication List Sodium Chloride (Nss) 1,000 mls @ 125 mls/hr IV .Q8H JAYLYN Stop: 08/03/23 08:59 Last Infusion: 07/04/23 13:18 Dose: Infused Documented By: Admin: 07/04/23 08:55 Dose: 125 mls/hr Documented By: OSIEL Nicardipine HCl 25 mg/ Sodium (Chloride) 250 mls @ 50 mls/hr IV .Q5H [facility]; Protocol Stop: 08/03/23 14:29 Last Admin: 07/04/23 14:47 Dose: 5 mg/hr, 50 mls/hr Documented By: OSIEL Co-signed By: BK Discontinued Medications Diazepam (Diazepam 5 Mg/Ml 10ml Vial) 2 mg IV NOW STA Stop: 07/04/23 10:32 Last Admin: 07/04/23 10:54 Dose: 2 mg Documented By: OSIEL Hydralazine HCl (Hydralazine Hcl 20 Mg/Ml Vial) 5 mg IV NOW ONE Stop: 07/04/23 09:30 Last Admin: 07/04/23 09:47 Dose: 5 mg Documented By: OSIEL Hydralazine HCl (Hydralazine Hcl 20 Mg/Ml Vial) 5 mg IV NOW ONE Stop: 07/04/23 13:06 Last Admin: 07/04/23 13:18 Dose: 5 mg Documented By: OSIEL Acetaminophen (Ofirmev) 1,000 mg in 100 mls @ 400 mls/hr IV NOW STA Stop: 07/04/23 09:00 Last Infusion: 07/04/23 09:13 Dose: Infused Documented By: Admin: 07/04/23 08:58 Dose: 400 mls/hr Documented By: OSIEL Ioversol (Optiray 320 125ml) 118 ml IV ONCE ONE Stop: 07/04/23 09:21 Last Admin: 07/04/23 09:13 Dose: 118 ml Documented By: BELINDA ECG Rate (beats per minute): 58 Rhythm: sinus bradycardia Additional Comments: I have independently reviewed and interpreted patient's admitting EKG which revealed: SB 58bpm, no ST or T wave changes COVID-19 Results Results COVID-19 Adm Lab Results: RBC 5.43 M/uL (4.70-6.10) 07/04/23 WBC 6.69 K/ul (4.8-10.8) 07/04/23 Hgb 16.4 g/dl (14.0-18.0) 07/04/23 Hct 47.2 % (42.0-52.0) 07/04/23 Plt Count 188 K/uL (130-400) 07/04/23 Neutrophils (%) (Auto) 73.9 % 07/04/23 Lymphocytes (%) (Auto) 14.6 % 07/04/23 Monocytes # (Auto) 0.50 K/uL (0.11-0.59) 07/04/23 Eosinophils # (Auto) 0.22 K/uL (0.00-0.50) 07/04/23 Immature Granulocyte % (Auto) 0.1 % 07/04/23 Neutrophils # (Auto) 4.94 K/uL (1.40-6.50) 07/04/23 Lymphocytes # (Auto) 0.98 K/uL (1.20-3.40) L 07/04/23 Monocytes # (Auto) 0.50 K/uL (0.11-0.59) 07/04/23 Eosinophils # (Auto) 0.22 K/uL (0.00-0.50) 07/04/23 Basophils # (Auto) 0.04 K/uL (0.00-0.20) 07/04/23 Immature Granulocyte # (Auto) 0.01 K/uL (0.01-0.20) 4 Na 137 mmol/L (136-145) 07/04/23 K 4.0 mmol/L (3.5-5.1) 07/04/23 Cl 107 mmol/L (98-107) 07/04/23 CO2 25 mmol/L (21-32) 07/04/23 Anion Gap 5 (3-11) 07/04/23 BUN 19 mg/dl (6-23) 07/04/23 Creatinine 1.11 mg/dl (0.6-1.4) 07/04/23 BUN/Creatinine Ratio 17.1 (10-20) 07/04/23 Glucose Level 117 mg/dl (70-99(Fasting)) H 07/04/23 Ca 9.3 mg/dl (8.6-10.3) 07/04/23 Total Bilirubin 0.7 mg/dl (0.2-1.0) 07/04/23 AST/SGOT 10 U/L (13-39) L 07/04/23 ALT/SGPT 8 U/L (7-52) 07/04/23 Alkaline Phosphatase 62 U/L (34-104) 07/04/23 Total Protein 7.7 gm/dl (6.0-8.3) 07/04/23 Albumin 4.5 gm/dl (3.4-5.0) 07/04/23 Globulin 3.2 gm/dl (2.5-4.0) 07/04/23 Albumin/Globulin Ratio 1.4 (0.9-2) 07/04/23 Chest X-Ray 07/04/23 Code Status & VTE Plan Code Status FULL CODE VTE Prophylaxis Plan VTE Prophylaxis will be ordered: Yes Supervising Physician Co-Signing Physician Notes I have seen and discussed the case with the collaborating DENISE. I agree with the above H&P. I have reviewed and confirmed the patients medical history, the findings on physical examination, and the patients diagnosis and treatment plan with Shana WALKER and agree with the information documented. In short, Mr. Puente is a 68 year old gentleman with history of chronic tobacco use, hypertension, CKD who is being admitted for management of hypertensive emergency. Patient noted to have headache, vertical diplopia, and dizziness. Patient reports questionable history consistent with intermittent medication use/noncompliance 2/2 "not feeling right." GENERAL APPEARANCE: AxOx4,no acute distress, but appears mildly uncomfortable HEENT: NC, AT. MMM. EOMI, clear conjunctiva, oropharynx clear. +left beating nystagmus NECK: Supple without lymphadenopathy. No stiffness or restricted ROM. HEART: Normal rate and regular rhythm, normal S1/S1, no m/r/g LUNGS: CTAB, moving air well. No crackles or wheezes are heard. bilateral clubbing of finger tips ABDOMEN: Soft, nontender, nondistended with good bowel sounds heard. BACK: No CVAT, no obvious deformity. EXTREMITIES: Without cyanosis, clubbing or edema. NEUROLOGICAL: Grossly nonfocal. Alert CNII-CXII intact , moving all 4 extremities 5/5 strength. formal HINTs exam limited 2/2 Skin: Warm and dry without any rash. #Hypertensive Emergency, c/f hypertensive encephalopathy (diplopia/vision changes/headache) -MRI ordered r/o central vertigo 2/2 stroke -Neuro consult for eval for -Lipid panel in am -ECHO ordered -Nicardipine drip -Goal SBP 160 -Secondary Hypertensive workup: -Doppler with questionable left renal artery stenosis -Ordering CTA abdomen -Plan for vascular consult if positive -Renin activity ordered, urine metanephrines #Bradycardia -Discontinue Coreg and monitor on tele #Tobacco use counseled on cessation-not interested, nicotine patch Rest of plan as above I have reviewed the advanced practitioner's documentation, and I agree with, and take responsibility for the plan of care I spent a total of 55 minutes coordinating, documenting, and providing care for this patient excluding time spent in the performance of separately billed services. All of the aforementioned completed outside of collaborating with the assigned PA for a full treatment plan.
[2023-07-04 15:26] LABS: Appearance Urine Clear (Clear); Bacteria Urine Automated Negative (Negative); Bilirubin Urine Negative (Negative); Blood Urine Negative (Negative); Cast Urine Automated 0 /lpf (0-5); Color Urine Yellow; Glucose Urine UA Negative (Negative); Ketones Urine Negative (Negative); Leukocyte Esterase Urine Negative (Negative); Nitrite Urine Negative (Negative); Protein Urine 1+ (Negative); RBC Urine Automated 0-4 /hpf (0-4); Specific Gravity Urine 1.021 (1.000-1.030); Urobilinogen Urine Negative (Negative); WBC Urine Automated 0 /hpf (0-5)
[2023-07-04 15:29] LABS: Total Protein Urine Random 37.7 mg/dl (0-11.9)
[2023-07-04 15:34] LABS: Creatinine Urine Random 51.4 mg/dl; Protein Creatinine Ratio Urine 0.7 (0-0.2)
--- NOTE | 2023-07-04 16:55 | Ultrasound Report ---
US duplex renal artery CLINICAL HISTORY: Evaluate for renal artery stenosis. COMPARISON STUDY: No previous studies for comparison. TECHNIQUE: Color and duplex Doppler sonography of the abdominal aorta and renal arteries was timothy jenkins FINDINGS: The proximal abdominal aorta is ectatic, measuring approximately 2.7 cm in caliber. There i s moderate plaque within the proximal abdominal aorta. Peak systolic velocity within the abdominal ao rta was 53 cm/s. Bilateral renal arteries and veins are patent. There was no hydronephrosis. Peak sys tolic velocity within the right renal artery was 190 cm/s. There was an elevated peak systolic veloci ty of 390 cm/s within the proximal left renal artery. Segmental waveforms within the kidneys were nor mal. IMPRESSION: 1. Significantly elevated velocity within the proximal left renal artery suggestive of renal artery s tenosis. CTA of the abdomen could be obtained for confirmation. 2. No definite sonographic evidence for right renal artery stenosis. 3. Ectatic proximal abdominal aorta with moderate plaque. ACT 112: Negative or not required by law. Electronically signed by: Judson White M.D. 07/04/2023 4:53 PM
[2023-07-04] MEDS ORDERED: PHARMACIST DISCHARGE MED REC CONSULT PRN (18:48)
[2023-07-04] MEDS ORDERED: ACETAMINOPHEN 325 MG TAB PO PRN (18:48)
[2023-07-04] MEDS ORDERED: POLYETHYLENE (MIRALAX) 17 GM PACK PO PRN (18:48)
[2023-07-04] MEDS ORDERED: ONDANSETRON INJ 2 MG/ML 2 ML VIAL IV PRN (18:48)
[2023-07-04] MEDS ORDERED: MAGNESIUM HYDROXIDE SUSP 30 ML UDC PO PRN (18:48)
[2023-07-04] MEDS ORDERED: ALUMINUM/MAGNESIUM SUSP 30 ML UDC PO PRN (18:48)
--- NOTE | 2023-07-04 19:39 | CT Scan Report ---
CT angio abdomen pelvis w con CT DOSE: 539.29 mGy.cm CLINICAL HISTORY: Abnormal renal artery ultrasound. Assess for left-sided renal artery stenosis. TECHNIQUE: Multiaxial CT images of the abdomen and pelvis were performed following the intravenous ad ministration of contrast to evaluate the renal arteries. 3-D/maximal intensity projection images in t he sagittal and coronal planes were also obtained for the CTA portion of the examination. A dose low ering technique was utilized adhering to the principles of ALARA. COMPARISON STUDY: None. FINDINGS: There is moderate atherosclerotic plaque within the abdominal aorta and common iliac arteri es. This results in up to 40% focal stenosis within the mid abdominal aorta. This is best seen image 126. No significant stenosis within the bilateral common or external iliac arteries. The visualized f emoral arteries appear patent. Mild to moderate multifocal narrowing within the proximal bilateral in ternal iliac arteries. The celiac artery and superior mesenteric artery are widely patent. There is m oderate focal stenosis of up to 50% at the takeoff of the inferior mesenteric artery best seen on tariq ge 147. Otherwise, the mid to distal inferior mesenteric artery appears patent. The splenic artery ar ises from the superior mesenteric artery. There are 3 right renal arteries and 2 left renal arteries. The bilateral renal arteries are widely patent with no evidence for stenosis, occlusion, or aneurysm . Mild aneurysmal dilatation of the abdominal aorta measuring up to 4.0 x 3.5 cm. The lung bases are clear. No pneumoperitoneum. No pneumatosis. Posterior decompression within the low er lumbar spine. No acute fractures. The heart is mildly enlarged with mild left ventricular hypertro phy. A few scattered hypervascular foci within the liver with the largest in the right hepatic dome o n image 31 measuring 11 mm. These are indeterminate and could represent hypervascular lesions and/or perfusion variants. The gallbladder, adrenal glands, and pancreas are unremarkable. Peripherally calc ified splenic cyst measuring 1.8 cm. No hydronephrosis. Bilateral renal cysts with the largest on the left measuring 1.8 cm. No retroperitoneal lymphadenopathy. No pelvic lymphadenopathy or pelvic free fluid. The prostate gland is enlarged. Normal bladder. No bowel wall thickening or obstruction. Minna l appendix. IMPRESSION: 1. No evidence for renal artery stenosis. 2. A 4.0 x 3.5 cm infrarenal abdominal aortic aneurysm. 3. A few scattered hypervascular foci within the liver measuring 12 mm. These are indeterminate could represent hypervascular lesions and/or perfusion variants. The absence of a known malignancy these f avor benign lesions. 4. Additional findings as described above. ACT 112: Negative or not required by law. Electronically signed by: Bryan Townsend M.D. 07/04/2023 7:36 PM
--- NOTE | 2023-07-04 19:49 | Magnetic Resonance Report ---
Brain MRI WITHOUT CONTRAST HISTORY: Dizziness. Headache. Vision changes. TECHNIQUE: Multiplanar multisequence MRI of the brain was performed without the use of contrast. COMPARISON STUDY: Head CT 07/04/2023. FINDINGS: There is small focus of restricted diffusion within the left posterior occipital lobe measu ring 1.3 cm. This is consistent with an acute infarct. There may be an additional punctate focus of r estricted diffusion within the central pasquale measuring 5 mm on image 7. This likely represents an acut e lacunar infarct. There is also a punctate focus of restricted diffusion within the right occipital lobe on image 9 consistent with an acute lacunar infarct. The midline structures are intact. Mild muc osal thickening within the paranasal sinuses. The left mastoid air cells are clear. A few partially o pacified right mastoid air cells. The orbits are unremarkable. The major vascular flow-voids at the s kull base are well-maintained. The ventricles and sulci are within normal limits for age. Old lacunar infarct seen within the left thalamus. Old lacunar infarct seen within the cerebellar hemispheres. T here is no mass, hematoma, or midline shift. Periventricular and subcortical white matter T2 hyperint ense foci favor moderate microvascular ischemic change. Mild cytotoxic edema associated with the left posterior occipital lobe infarct. IMPRESSION: 1. A small acute left posterior occipital lobe infarct measuring 1.3 cm. 2. Acute punctate lacunar infarcts seen within the right occipital lobe and pasquale. 3. Moderate microvascular ischemic changes. ACT 112: Negative or not required by law. Electronically signed by: Bryan Townsend M.D. 07/04/2023 7:46 PM
[2023-07-04] MEDS: LACTATED RINGER'S 1,000 ML IV SCH (20:53)
[2023-07-04] MEDS: ASPIRIN CHEW 324 MG PO STA (20:54)
[2023-07-04] MEDS: ATORVASTATIN 40 MG TAB PO STA (20:54)
[2023-07-05 06:14] LABS: Basophils # (auto) 0.05 K/uL (0.00-0.20); Basophils % (auto) 0.7 %; Hematocrit (blood only) 45.3 % (42.0-52.0); Hemoglobin 15.8 g/dl (14.0-18.0); Immature Granulocytes # (auto) 0.02 K/uL (0.01-0.20); Immature Granulocytes % (auto) 0.3 %; Lymphocytes # (auto) 1.56 K/uL (1.20-3.40); Lymphocytes % (auto) 23.4 %; Mean Corpuscular Hemoglobin 30.3 pg (25.0-34.0); Mean Corpuscular Hgb Conc 34.9 g/dL (32.0-36.0); Mean Corpuscular Volume 86.8 fL (80.0-100.0); Mean Platelet Volume 11.2 fL (9.4-12.4); Neutrophils # (auto) 4.04 K/uL (1.40-6.50); Neutrophils % (auto) 60.6 %; Platelet Count 180 K/uL (130-400); RDW Coefficient of Variation 14.8 % (11.5-14.5); RDW Standard Deviation 47.3 fL (36.4-46.3); Red Blood Count 5.22 M/uL (4.70-6.10); White Blood Count 6.67 K/ul (4.8-10.8)
[2023-07-05 06:53] LABS: BUN Creatinine Ratio 15.9 (10-20); Calcium 9.1 mg/dl (8.6-10.3); Chol HDL Ratio 4.8 (0-5); Creatinine Clr Calc Pharmacy 59.7 ml/min; Est GFR (African American) 76.4 ml/min; Potassium 3.6 mmol/L (3.5-5.1)
[2023-07-05 07:08] LABS: Estimated Average Glucose 120 mg/dl; Hemoglobin A1C 5.8 % (4.5-5.6)
--- NOTE | 2023-07-05 09:17 | Hospitalist Progress Note ---
Date of Service July 05, 2023 Assessment & Plan (1) Hypertensive emergency: (2) Vision changes: (3) Tobacco abuse: Plan This is a 68 yr old M who has a significant PMH of HTN and CKD3 who presents to ED 2/2 double vision, GONZALEZ and dizziness since last night. Found to have CVA on MRI CVA Visual changes (diplopia) Headache/Vertigo Initially attributed pt's symptoms to uncontrolled hypertension. Was found to have CVA. Brain MR - 1. A small acute left posterior occipital lobe infarct measuring 1.3 cm. 2. Acute punctate lacunar infarcts seen within the right occipital lobe and pasquale. 3. Moderate microvascular ischemic changes. Head CT - No acute intracranial findings. Head CTA - 1. No aneurysm, dissection, high-grade stenosis or arterial occlusion. 2. Mild to moderate multifocal stenoses of the intracranial arteries as above. Neck CTA - 1. Moderate atherosclerotic plaque within the left carotid bifurcation without significant stenosis. 2. No dissection, aneurysm or significant stenosis within the major vessels within the neck. 3. Emphysema. Neurology consulted - Stroke with cerebral ischemia: Elfego Puente is a 68 yo M presenting with embolic stroke throughout the posterior circulation. I suspect this is secondary to athero in the posterior circulation vessels rather than a cardioembolic source. While HTN is important to manage with a goal BP of <120/70, this is not the primary cause of his stroke. This is not PRES seen with hypertensive emergency. Recommend he continues BP control appointments with his PCP. Agree with aspirin 81mg daily and lipitor 40mg daily to address his ICAD. -- Continue aspirin 81mg daily -- Continue Lipitor 40mg daily -- Continue BP control as an outpatient -- Consider cardiac event monitor through PCP office for paroxysmal afib -- Please contact us with any further questions, patient can follow-up with neurology in 4-6 weeks. Hypertensive emergency PCU initially place on nicardipine gtt for BP control on admission - that was stopped and pt on PO meds hold home dose felodipine while on nicardipine hold coreg (pt bradycardic and ? if pt fatigue, malaise and dizziness related to low heart rate) resumed losartan and amlodipine was added Echocardiogram obtained -EF 60 to 65%. Mild concentric LVH. Pulse-wave TDI of the anterior and posterior mitral annulus demonstrates abnormal LV relaxation. No significant valvular pathology. secondary hypertension w/u with renal duplex, catecholamines, serum alexandru/renin (bloodwork pending) Renal US initailly concerning for renal artery stenosis however CTA abd/pelvis was obtained - and did not confirm this. It did show AAA. CTA - 1. No evidence for renal artery stenosis. 2. A 4.0 x 3.5 cm infrarenal abdominal aortic aneurysm. 3. A few scattered hypervascular foci within the liver measuring 12 mm. These are indeterminate could represent hypervascular lesions and/or perfusion variants. The absence of a known malignancy these favor benign lesions. AAA - control BP as above - follow up with vascular surgery CKD-3 baseline cr 1.3-1.4 cr. 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 Green Admission and Anticipated Discharge Date Admission Date: July 04, 2023 Subjective Pt seen in follow up of diplopia, uncontrolled HTN, found to have CVA Currently sitting up in NAD, reports his diplopia is resolved, feeling well, also denies any headache, or chest pain, no palpitations No fever, chills, abd. pain, no n/v Review of Systems Review of Systems: All systems reviewed & are unremarkable except as noted in Subjective Physical Exam Physical Exam: GENERAL APPEARANCE: AxOx4,no acute distress HEENT: NC, AT. MMM. EOMI, clear conjunctiva, oropharynx clear. NECK: Supple HEART: rrr,, normal S1/S1, no m/r/g LUNGS: CTAB, moving air well. No crackles or wheezes are heard. ABDOMEN: Soft, nontender, nondistended with good bowel sounds heard. EXTREMITIES: moves extremities NEUROLOGICAL: Awake alert oriented, speech fluent, no facial asymmetry, answers appropriately, moves extremities. Skin: Warm and dry without any rash. Results & Data Results & Data Vital Signs (Past 12 Hours) Vital Signs Temp Pulse Pulse Resp BP Pulse Ox O2 Del Method 07/05/23 07:31 36.5 C 56 L 19 166/96 H 95 Room Air 07/05/23 03:00 36.9 C 55 L 19 164/90 H 95 Room Air 07/05/23 02:37 52 L 168/85 H 07/05/23 01:37 53 L 159/80 H 07/05/23 00:45 77 143/89 H 07/04/23 23:00 37.1 C 54 L 20 150/79 H 94 Room Air 07/04/23 22:53 58 L 130/66 07/04/23 21:58 63 07/04/23 21:50 69 142/77 H Laboratory Results 07/05/23 07/05/23 07/04/23 Range/Units 05:43 00:46 15:34 WBC 6.67 (4.8-10.8) K/ul RBC 5.22 (4.70-6.10) M/uL Hgb 15.8 (14.0-18.0) g/dl POC Hgb (14.0-18.0) g/dl Hct 45.3 (42.0-52.0) % POC Hct (42-52) % MCV 86.8 (80.0-100.0) fL MCH 30.3 (25.0-34.0) pg MCHC 34.9 (32.0-36.0) g/dL RDW Std Deviation 47.3 H (36.4-46.3) fL RDW Coeff of Tova 14.8 H (11.5-14.5) % Plt Count 180 (130-400) K/uL MPV 11.2 (9.4-12.4) fL Immature Gran % (Auto) 0.3 % Neut % (Auto) 60.6 % Lymph % (Auto) 23.4 % [place] % (Auto) 9.0 % Eos % (Auto) 6.0 % Baso % (Auto) 0.7 % Neut # (Auto) 4.04 (1.40-6.50) K/uL Lymph # (Auto) 1.56 (1.20-3.40) K/uL [place] # (Auto) 0.60 H (0.11-0.59) K/uL Eos # (Auto) 0.40 (0.00-0.50) K/uL Baso # (Auto) 0.05 (0.00-0.20) K/uL Immature Gran # (Auto) 0.02 (0.01-0.20) K/uL POC Sodium (135-144) mmol/L Sodium 139 (136-145) mmol/L POC Potassium (3.3-5.0) mmol/L Potassium 3.6 (3.5-5.1) mmol/L POC Chloride (101-112) mmol/L Chloride 108 H (98-107) mmol/L Carbon Dioxide 22 (21-32) mmol/L POC Total CO2 (24-31) mmol/L Anion Gap 9 (3-11) POC Anion Gap (16-25) mmol/L POC BUN (7-18) mg/dl BUN 18 (6-23) mg/dl Creatinine 1.13 (0.6-1.4) mg/dl POC Creatinine (0.6-1.3) mg/dl Est Cr Clr Drug Dosing 59.7 Est GFR ( Amer) 76.4 ml/min Est GFR (Non-Af Amer) 66.0 ml/min BUN/Creatinine Ratio 15.9 (10-20) Glucose 95 (70-99(Fasting)) mg/dl POC Glucose (other) (70-99) mg/dl Estimat Average Glucose 120 mg/dl Hemoglobin A1c 5.8 H (4.5-5.6) % Calcium 9.1 (8.6-10.3) mg/dl POC Ioniz Calcium Jasson (1.12-1.32) mmol/l Magnesium (1.7-2.4) mg/dl Total Bilirubin (0.2-1.0) mg/dl AST (13-39) U/L ALT (7-52) U/L Alkaline Phosphatase (34-104) U/L Troponin I High Sens 20.0 (0-20) pg/ml Total Protein (6.0-8.3) gm/dl Albumin (3.4-5.0) gm/dl Globulin (2.5-4.0) gm/dl Albumin/Globulin Ratio (0.9-2) Triglycerides 124 (0-150) mg/dl Cholesterol 200 (0-200) mg/dl LDL Cholesterol, Calc 133 mg/dl VLDL Cholesterol, Calc 25 (0-30) mg/dl HDL Cholesterol 42 mg/dl Cholesterol/HDL Ratio 4.8 (0-5) Lipase (11-82) U/L Renin Activity Pending Aldosterone Pending TSH (0.300-4.500) uIu/ml Dopamine Pending Epinephrine Pending Norepinephrine Pending Total Catecholamines Pending Urine Color Urine Appearance (Clear) Urine pH (4.5-7.5) Ur Specific [place] (1.000-1.030) Urine Protein (Negative) Urine Glucose (UA) (Negative) Urine Ketones (Negative) Urine Blood (Negative) Urine Nitrite (Negative) Urine Bilirubin (Negative) Urine Urobilinogen (Negative) Ur Leukocyte Esterase (Negative) Urine WBC (Auto) (0-5) /hpf Urine RBC (Auto) (0-4) /hpf U Hyaline Cast (Auto) (0-5) /lpf U Epithel Cells (Auto) (0-5) /lpf Urine Bacteria (Auto) (Negative) Ur Random Creatinine mg/dl U Random Total Protein (0-11.9) mg/dl Ur Alvo Metanephrines Pending Protein/Creatinin Ratio (0-0.2) U Normetanephrine Pending U Total Metanephrines Pending Urine Creatinine Pending 07/04/23 07/04/23 07/04/23 Range/Units 15:01 09:02 08:52 WBC 6.69 (4.8-10.8) K/ul RBC 5.43 (4.70-6.10) M/uL Hgb 16.4 (14.0-18.0) g/dl POC Hgb 17.0 (14.0-18.0) g/dl Hct 47.2 (42.0-52.0) % POC Hct 50 (42-52) % MCV 86.9 (80.0-100.0) fL MCH 30.2 (25.0-34.0) pg MCHC 34.7 (32.0-36.0) g/dL RDW Std Deviation 46.8 H (36.4-46.3) fL RDW Coeff of Tova 14.8 H (11.5-14.5) % Plt Count 188 (130-400) K/uL MPV 11.3 (9.4-12.4) fL Immature Gran % (Auto) 0.1 % Neut % (Auto) 73.9 % Lymph % (Auto) 14.6 % [place] % (Auto) 7.5 % Eos % (Auto) 3.3 % Baso % (Auto) 0.6 % Neut # (Auto) 4.94 (1.40-6.50) K/uL Lymph # (Auto) 0.98 L (1.20-3.40) K/uL [place] # (Auto) 0.50 (0.11-0.59) K/uL Eos # (Auto) 0.22 (0.00-0.50) K/uL Baso # (Auto) 0.04 (0.00-0.20) K/uL Immature Gran # (Auto) 0.01 (0.01-0.20) K/uL POC Sodium 140 (135-144) mmol/L Sodium 137 (136-145) mmol/L POC Potassium 4.0 (3.3-5.0) mmol/L Potassium 4.0 (3.5-5.1) mmol/L POC Chloride 106 (101-112) mmol/L Chloride 107 (98-107) mmol/L Carbon Dioxide 25 (21-32) mmol/L POC Total CO2 23 L (24-31) mmol/L Anion Gap 5 (3-11) POC Anion Gap 17.0 (16-25) mmol/L POC BUN 20 H (7-18) mg/dl BUN 19 (6-23) mg/dl Creatinine 1.11 (0.6-1.4) mg/dl POC Creatinine 1.1 (0.6-1.3) mg/dl Est Cr Clr Drug Dosing Not Reportable Est GFR ( Amer) 78.1 ml/min Est GFR (Non-Af Amer) 67.4 ml/min BUN/Creatinine Ratio 17.1 (10-20) Glucose 117 H (70-99(Fasting)) mg/dl POC Glucose (other) 117 H (70-99) mg/dl Estimat Average Glucose mg/dl Hemoglobin A1c (4.5-5.6) % Calcium 9.3 (8.6-10.3) mg/dl POC Ioniz Calcium Jasson 1.08 L (1.12-1.32) mmol/l Magnesium 2.0 (1.7-2.4) mg/dl Total Bilirubin 0.7 (0.2-1.0) mg/dl AST 10 L (13-39) U/L ALT 8 (7-52) U/L Alkaline Phosphatase 62 (34-104) U/L Troponin I High Sens 18.9 (0-20) pg/ml Total Protein 7.7 (6.0-8.3) gm/dl Albumin 4.5 (3.4-5.0) gm/dl Globulin 3.2 (2.5-4.0) gm/dl Albumin/Globulin Ratio 1.4 (0.9-2) Triglycerides (0-150) mg/dl Cholesterol (0-200) mg/dl LDL Cholesterol, Calc mg/dl VLDL Cholesterol, Calc (0-30) mg/dl HDL Cholesterol mg/dl Cholesterol/HDL Ratio (0-5) Lipase 4 L (11-82) U/L Renin Activity Aldosterone TSH 1.494 (0.300-4.500) uIu/ml Dopamine Epinephrine Norepinephrine Total Catecholamines Urine Color Yellow Urine Appearance Clear (Clear) Urine pH 7.0 (4.5-7.5) Ur Specific [place] 1.021 (1.000-1.030) Urine Protein 1+ H (Negative) Urine Glucose (UA) Negative (Negative) Urine Ketones Negative (Negative) Urine Blood Negative (Negative) Urine Nitrite Negative (Negative) Urine Bilirubin Negative (Negative) Urine Urobilinogen Negative (Negative) Ur Leukocyte Esterase Negative (Negative) Urine WBC (Auto) 0 (0-5) /hpf Urine RBC (Auto) 0-4 (0-4) /hpf U Hyaline Cast (Auto) 0 (0-5) /lpf U Epithel Cells (Auto) 5-10 H (0-5) /lpf Urine Bacteria (Auto) Negative (Negative) Ur Random Creatinine 51.4 mg/dl U Random Total Protein 37.7 H (0-11.9) mg/dl Ur Alvo Metanephrines Protein/Creatinin Ratio 0.7 H (0-0.2) U Normetanephrine U Total Metanephrines Urine Creatinine Medications Administered Current Inpatient Medications Acetaminophen (Acetaminophen 325 Mg Tab) 650 mg PO Q4H PRN PRN Reason: Pain or Fever Stop: 08/03/23 18:47 Al Hydrox/Mg Hydrox/Simethicone (Aluminum/Magnesium Susp 30 Ml Udc) 15 ml PO Q4H PRN PRN Reason: Dyspepsia Stop: 08/03/23 18:47 Aspirin (Aspirin 81 Mg Ectab) 81 mg PO [facility] Stop: 08/04/23 08:59 Atorvastatin Calcium (Atorvastatin 40 Mg Tab) 40 mg PO [facility] Stop: 08/04/23 08:59 Nicardipine HCl 25 mg/ Sodium (Chloride) 250 mls @ 50 mls/hr IV .Q5H [facility]; Protocol Stop: 08/03/23 14:29 Last Titration: 07/04/23 20:49 Dose: Infused Losartan Potassium (Losartan Potassium 50 Mg Tab) 100 mg PO DAILY [facility] Stop: 08/04/23 08:59 Magnesium Hydroxide (Magnesium Hydroxide Susp 30 Ml Udc) 30 ml PO Q12H PRN PRN Reason: Constipation Stop: 08/03/23 18:47 Miscellaneous (Remove Nicoderm Patch) 1 each N/A DAILY@0859 [facility] Stop: 08/04/23 08:58 Miscellaneous Information (Pharmacist Discharge Med Rec Consult) 1 each N/A UD PRN PRN Reason: Consult Stop: 08/03/23 18:47 Nicotine (Nicotine 21 Mg/24 Hr Tdsy) 21 mg TD QAM [facility] Stop: 08/04/23 08:59 Ondansetron HCl (Ondansetron Inj 2 Mg/Ml 2 Ml Vial) 4 mg IV Q6H PRN PRN Reason: Nausea Stop: 08/03/23 18:47 Polyethylene Glycol (Polyethylene (Miralax) 17 Gm Pack) 17 gm PO DAILY PRN PRN Reason: Constipation Stop: 08/03/23 18:47
[2023-07-05] MEDS: ATORVASTATIN 40 MG TAB PO SCH (09:21)
[2023-07-05] MEDS: LOSARTAN POTASSIUM 50 MG TAB PO SCH (09:21)
[2023-07-05] MEDS: ASPIRIN 81 MG ECTAB PO SCH (10:26)
--- NOTE | 2023-07-05 10:59 | Electrocardiogram Report ---
Test Reason : Blood Pressure : / mmHG Vent. Rate : 051 BPM Atrial Rate : 051 BPM P-R Int : 176 ms QRS Dur : 106 ms QT Int : 464 ms P-R-T Axes : 080 038 -17 degrees QTc Int : 427 ms Sinus bradycardia with sinus arrhythmia Left atrial enlargement Left ventricular hypertrophy Abnormal ECG When compared with ECG of 04-JUL-2023 08:53, No significant change was found Confirmed by Luis Miguel Henson [id number] on 07/05/2023 10:59:02 AM Referred By: REFERRED SELF Confirmed By:Luis Miguel Henson
--- NOTE | 2023-07-05 11:00 | Cardiology Consultation ---
Date of Consultation July 05, 2023 Assessment & Plan (1) Hypertensive emergency: (2) CVA (cerebral vascular accident): (3) AAA (abdominal aortic aneurysm): (4) Tobacco abuse: Plan Patient admitted for hypertensive emergency with uncontrolled hypertension/visual disturbances. Brain imaging confirms small left posterior occipital infarct and punctate lacunar infarct in the right occipital lobe. Neuro consult pending. ASA 81 mg started Statin initiated - atorvastatin 40 mg daily BP improved with nicardipine gtt and was discontinued earlier this morning. Visual disturbances have resolved. Patient reports non compliance with home meds and self adjusts his medications due to low readings at times and dizziness/fatigue. He was bradycardic upon arrival, and carvedilol was discontinued (if he was taking at home). This may have been contributing to his home symptoms. No pauses or high degree AV block. Avoid AV cici blocking agents. Continue losartan 100 mg daily. Add amlodipine 2.5 mg this morning and titrate as tolerated. May need hydralazine He was also diagnosed with infrarenal AAA measuring 4.0 x 3.5 cm during admission on CT scan to r/o renal artery stenosis. No renal artery stenosis. Would recommend establishing with vascular surgery as outpatient to follow. Smoking cessation encouraged. Case discussed with Dr. Mora I spent a total of 60 minutes on the date of service in preparation, delivery, and documentation of the care provided to this patient, excluding any time spent in the performance of separately billed services. Chacha Maurer PA-C Department of Cardiology, [facility] This chart was completed in part utilizing Speech Voice Recognition Software. Grammatical errors, random word insertions, pronoun errors, and incomplete sentences are an occasional consequence of this system due to software limitations, ambient noise, and hardware issues. Any formal questions or concerns about the content, text, or information contained within the body of this dictation should be directly addressed to the provider for clarification. Supervising Physician Co-Signing Physician Notes Attending attestation: Case reviewed with the advanced practitioner. I have personally performed a history and physical examination on the patient. I have reviewed the advanced practitioner's documentation on the date of service referenced in note, and I agree with, and take responsibility for the plan of care. Subjective: Patient asymptomatic at the time of my assessment. Blurred vision improved. Telemetry reveals sinus rhythm in the 60s. Exam: Cardiovascular regular rhythm, no murmurs, no edema Data: EKG performed 07/05/2023 at 5:27 AM: Sinus bradycardia at 51 bpm, with left ventricular hypertrophy Echocardiogram performed 07/04/2023: Mild concentric left ventricular hypertrophy, grade 1 diastolic dysfunction, LVEF 60 to 65%, no significant valvular pathology Impression/ Plan: 1) Hypertensive emergency with longstanding history of suboptimally controlled hypertension 2) MRI of the brain revealing a small acute left posterior occipital infarct measuring 1.3 cm, acute punctate lacunar infarct seen within the right occipital lobe and pasquale 3) 4 cm x 3.5 cm abdominal aortic aneurysm 4) Renal artery stenosis excluded on CT angiogram of abdomen and pelvis 5) Dyslipidemia * Historical blood pressures reviewed from outpatient chart. Although some readings are acceptable, patient has had multiple IV outpatient blood pressure readings including 166/90 on 05/04/2023, 188/102 on 02/21/2022, 194/108 on 06/24/2021, and 180/110 on 06/21/2021 * Patient was prescribed 3 agents prior to presentation to the emergency department, however not taking them due to perceived side effects * Although blood pressure improved, most recent measurement 171/99, would recommend patient remains in the hospital for ongoing optimization of blood pressure. 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 * I counseled him with regards to the risks of leaving and that he would need to leave AGAINST MEDICAL ADVICE * Would recommend outpatient 14-day Zio patch monitor to evaluate for occult atrial fibrillation given suggestion of embolic source of stroke event, although uncontrolled hypertension may very well be the underlying inciting factor I spent a total of 20 minutes coordinating, documenting, and providing care for this patient excluding time spent in the performance of separately billed services or time spent by another provider. Akhil Mora DO History of Present Illness Reason for Consultation: HTN emergency Requesting Physician: Ms. Shana PA-C Attending Physician: Dr. Mora History of Present Illness Patient is a 68-year-old male who presented to [facility] with uncontrolled hypertension with headache and visual disturbances. Blood pressure was significantly elevated on arrival. He underwent head CT which demonstrated mild to moderate stenosis of the intracranial arteries without evidence of acute infarction. Brain MRI was completed which demonstrated a small acute left posterior occipital lobe infarct measuring 1.3 cm and an acute punctate lacunar infarct within the right occipital lobe and pasquale. Neurology has been consulted. Patient was started on nicardipine drip overnight and blood pressure improved. Nicardipine was discontinued earlier this morning. Patient received morning dose of losartan. Blood pressure remained high at time of consult. As an outpatient patient was also taking carvedilol, losartan and nifedipine. He reports "they kept adding medications" as an outpatient but if he took all of them, he reported lightheadedness/dizziness and then would stop taking his meds. He denies cardiovascular history of CAD, OH, CHF, arrhythmia, valvular disease. No prior cardiac testing. Upon arrival, patient was mildly bradycardic. It was uncertain if he was taking the carvedilol, but this was discontinued on admission. At time of consult, patient sitting in chair feeling well. Prior complaints of headache, vision changes now resolved. He is "ready to go" and has "too much to do". He was also found to have AAA on abdominal CT scan, initially looking for renal artery stenosis. No LÁZARO noted. He denies chest pain or dyspnea. He continues to smoke. Allergies Allergy/AdvReac Type Severity Reaction Status Date / Time NONE Allergy Unknown Uncoded 11/29/02 05:57 Home Medications Medication Instructions Recorded Confirmed Type carvedilol 25 mg tablet 25 mg PO QAM 07/04/23 07/04/23 History felodipine 10 mg tablet,extended 10 mg PO QAM 07/04/23 07/04/23 History release 24 hr loratadine 10 mg tablet (Claritin) 10 mg PO DAILY PRN ALLERGIES 07/04/23 07/04/23 History losartan 100 mg tablet 100 mg PO DAILY 07/04/23 07/04/23 History Patient History Medical History (Updated 07/05/23 @ 12:33 by Luis Miguel Pang MD) Hepatitis C virus infection cured after antiviral drug therapy Chronic low back pain CKD (chronic kidney disease) stage 3, GFR 30-59 ml/min Hypertension Surgical History (Updated 07/04/23 @ 19:08 by Gina Saldana PA-C) Hx of colonoscopy History of lumbar laminectomy Family History Father Stroke Brother Stroke Social History (Updated 07/04/23 @ 15:06 by Gina Saldana PA-C) Smoking Status: Current every day smoker Tobacco Type: Cigarettes Age Started Using Tobacco: 11; Cigarettes Per Day: 1-2 packs per day; Hx Alcohol Use: No Hx Substance Use: No Preferred Language: [place]an Communication Ability: Effective Institutional Asset Manager Required: No Beliefs That Will Affect Care: None Current Living Situation: Spouse Feels Safe at Home: Yes Safety Concerns: Feels Safe At This Time Assistive Devices: None Review of Systems Review of Systems: All systems reviewed & are unremarkable except as noted in HPI & below Physical Exam Constitutional: WD/WN, vitals as above no acute distress Neck: trachea midline, no thyromegaly Respiratory: no respiratory distress Auscultation: + diminished lung sounds; no crackles and no rales Cardiovascular: Rate/Rhythm: regular rate and regular rhythm Heart Sounds: no murmur Vessels: no JVD Extremities: no edema Gastrointestinal (Abdomen): normal bowel sounds, soft, nontender, no hepatosplenomegaly Neurologic: PERRL, EOMI, accommodation nl, no face palsy, no dysarthria Results & Data Vital Signs (Past 12 Hours) Vital Signs Temp Pulse Resp BP Pulse Ox O2 Del Method 07/05/23 07:31 36.5 C 56 L 19 166/96 H 95 Room Air 07/05/23 03:00 36.9 C 55 L 19 164/90 H 95 Room Air 07/05/23 02:37 52 L 168/85 H 07/05/23 01:37 53 L 159/80 H 07/05/23 00:45 77 143/89 H 07/04/23 23:00 37.1 C 54 L 20 150/79 H 94 Room Air Laboratory Results Cardiac Enzymes 07/04/23 Range/Units 15:34 Troponin I High Sens 20.0 (0-20) pg/ml Lipids 07/05/23 Range/Units 05:43 Triglycerides 124 (0-150) mg/dl Cholesterol 200 (0-200) mg/dl HDL Cholesterol 42 mg/dl Cholesterol/HDL Ratio 4.8 (0-5) CBC 07/05/23 Range/Units 05:43 WBC 6.67 (4.8-10.8) K/ul RBC 5.22 (4.70-6.10) M/uL Hgb 15.8 (14.0-18.0) g/dl Hct 45.3 (42.0-52.0) % Plt Count 180 (130-400) K/uL Neut # (Auto) 4.04 (1.40-6.50) K/uL Lymph # (Auto) 1.56 (1.20-3.40) K/uL [place] # (Auto) 0.60 H (0.11-0.59) K/uL Eos # (Auto) 0.40 (0.00-0.50) K/uL Baso # (Auto) 0.05 (0.00-0.20) K/uL Comprehensive Metabolic Panel 07/05/23 Range/Units 05:43 Sodium 139 (136-145) mmol/L Potassium 3.6 (3.5-5.1) mmol/L Chloride 108 H (98-107) mmol/L Carbon Dioxide 22 (21-32) mmol/L BUN 18 (6-23) mg/dl Creatinine 1.13 (0.6-1.4) mg/dl Glucose 95 (70-99(Fasting)) mg/dl Calcium 9.1 (8.6-10.3) mg/dl Intake and Output 07/04/23 07/05/23 07/05/23 22:59 06:59 14:59 Intake Total 490.000 / 1590.000 Balance 490.000 / 1590.000 Intake: IV 250.000 / 1350.000 niCARdipine 25 mg In Sodium 250.000 / 250.000 Chloride 0.9% 240 ml @ 5 MG/HR 50 mls/hr IV .Q5H [facility] Rx#: [id number] Oral 240 / 240 Other: # Unmeasured Voids 1 Weight 71.8 kg 68.5 kg Weight Measurement Method Built in [facility] Diagnostic Findings Telemetry reviewed: sinus bradycardia and NSR ranging 50-60 bmp EKG reviewed from admission: Sinus bradycardia with voltage criteria for LVH Repeat EKG Sinus bradycardia with LVH no acute changes noted Echocardiogram report reviewed from 07/04/23; No prior study for comparison Normal LVEF at 60-65% Mild concentric LVH Abnormal relaxation pattern No significant valvular pathology Brain MRI: IMPRESSION: 1. A small acute left posterior occipital lobe infarct measuring 1.3 cm. 2. Acute punctate lacunar infarcts seen within the right occipital lobe and pasquale. 3. Moderate microvascular ischemic changes. Abd/Pelvic CT report reviewed: IMPRESSION: 1. No evidence for renal artery stenosis. 2. A 4.0 x 3.5 cm infrarenal abdominal aortic aneurysm. 3. A few scattered hypervascular foci within the liver measuring 12 mm. These are indeterminate could represent hypervascular lesions and/or perfusion variants. The absence of a known malignancy these favor benign lesions. 4. Additional findings as described above. Medications Administered Current Inpatient Medications Acetaminophen (Acetaminophen 325 Mg Tab) 650 mg PO Q4H PRN PRN Reason: Pain or Fever Stop: 08/03/23 18:47 Al Hydrox/Mg Hydrox/Simethicone (Aluminum/Magnesium Susp 30 Ml Udc) 15 ml PO Q4H PRN PRN Reason: Dyspepsia Stop: 08/03/23 18:47 Amlodipine Besylate (Amlodipine Besylate 5 Mg Tab) [facility] [place] Stop: 08/04/23 11:14 Aspirin (Aspirin 81 Mg Ectab) [facility] [place] Stop: 08/04/23 08:59 Last Admin: 07/05/23 10:26 Dose: 81 mg Atorvastatin Calcium (Atorvastatin 40 Mg Tab) [facility] [place] Stop: 08/04/23 08:59 Last Admin: 07/05/23 09:21 Dose: 40 mg Losartan Potassium (Losartan Potassium 50 Mg Tab) 100 mg PO DAILY [facility] Stop: 08/04/23 08:59 Last Admin: 07/05/23 09:21 Dose: 100 mg Magnesium Hydroxide (Magnesium Hydroxide Susp 30 Ml Udc) 30 ml PO Q12H PRN PRN Reason: Constipation Stop: 08/03/23 18:47 Miscellaneous (Remove Nicoderm Patch) 1 each N/A DAILY@0859 [facility] Stop: 08/04/23 08:58 Miscellaneous Information (Pharmacist Discharge Med Rec Consult) 1 each N/A UD PRN PRN Reason: Consult Stop: 08/03/23 18:47 Nicotine (Nicotine 21 Mg/24 Hr Tdsy) 21 mg TD [facility] Stop: 08/04/23 08:59 Ondansetron HCl (Ondansetron Inj 2 Mg/Ml 2 Ml Vial) 4 mg IV Q6H PRN PRN Reason: Nausea Stop: 08/03/23 18:47 Polyethylene Glycol (Polyethylene (Miralax) 17 Gm Pack) 17 gm PO DAILY PRN PRN Reason: Constipation Stop: 08/03/23 18:47
[2023-07-05] MEDS: amLODIPine BESYLATE 5 MG TAB PO SCH (11:52)
--- NOTE | 2023-07-05 12:23 | Neurology Consultation ---
Date of Consultation July 05, 2023 Assessment & Plan (1) Stroke with cerebral ischemia: Elfego Puente is a 68 yo M presenting with embolic stroke throughout the posterior circulation. I suspect this is secondary to athero in the posterior circulation vessels rather than a cardioembolic source. While HTN is important to manage with a goal BP of <120/70, this is not the primary cause of his stroke. This is not PRES seen with hypertensive emergency. Recommend he continues BP control appointments with his PCP. Agree with aspirin 81mg daily and lipitor 40mg daily to address his ICAD. -- Continue aspirin 81mg daily -- Continue Lipitor 40mg daily -- Continue BP control as an outpatient -- Consider cardiac event monitor through PCP office for paroxysmal afib -- Please contact us with any further questions, patient can follow-up with neurology in 4-6 weeks. Telehealth Consultation Telehealth Information Telehealth Information: I performed this visit using a real-time telehealth connection between my location and the patients location ([facility]). After connecting through interactive tele-video, patient was identified by name and date of and/or wristband check.Patient (or authorized healthcare sales representative facility services) was informed that this was a telemedicine visit and it was being conducted confidentially over secure lines. My office door was closed and no one else was present in the room with me.Patient (or authorized healthcare sales representative facility services) provided consent to proceed with the visit, expressed an understanding of privacy and security of the telemedicine visit, and gave permission to have a hospital sales representative facility services in the room in order to assist with the visit and to conduct portions of the visit, as needed. I informed the patient (or authorized healthcare sales representative facility services) that I reviewed their record and presented the opportunity for them to ask any questions regarding the visit today. The patient agreed to participate. History of Present Illness Reason for Consultation: Posterior circulation stroke Requesting Physician: Dr. Julio Attending Physician: Daniel Julio MD History of Present Illness Elfego Puente is a 68 yo F presenting with blurry vision and vertigo that has since resolved. The patient reports that he has been having difficulty controlling his BP at home with very high numbers and significant fluctuations as he works with his outpatient doc to determine the best regimen for his BP. He has never had a stroke before but has had vertigo which felt similar. He was not taking any antiplatelet or anticoagulant prior to this event. He also denies any new or ongoing stroke symptoms. Allergies Allergy/AdvReac Type Severity Reaction Status Date / Time NONE Allergy Unknown Uncoded 11/29/02 05:57 Home Medications Medication Instructions Recorded Confirmed Type carvedilol 25 mg tablet 25 mg PO QAM 07/04/23 07/04/23 History felodipine 10 mg tablet,extended 10 mg PO QAM 07/04/23 07/04/23 History release 24 hr loratadine 10 mg tablet (Claritin) 10 mg PO DAILY PRN ALLERGIES 07/04/23 07/04/23 History losartan 100 mg tablet 100 mg PO DAILY 07/04/23 07/04/23 History Patient History Medical History (Updated 07/05/23 @ 12:33 by Luis Miguel Pang MD) Hepatitis C virus infection cured after antiviral drug therapy Chronic low back pain CKD (chronic kidney disease) stage 3, GFR 30-59 ml/min Hypertension Surgical History (Updated 07/04/23 @ 19:08 by Gina Saldana PA-C) Hx of colonoscopy History of lumbar laminectomy Family History Father Stroke Brother Stroke Social History (Updated 07/04/23 @ 15:06 by Gina Saldana PA-C) Smoking Status: Current every day smoker Tobacco Type: Cigarettes Age Started Using Tobacco: 11; Cigarettes Per Day: 1-2 packs per day; Hx Alcohol Use: No Hx Substance Use: No Preferred Language: Cameroonian Communication Ability: Effective Airline Pilot Required: No Beliefs That Will Affect Care: None Current Living Situation: Spouse Feels Safe at Home: Yes Safety Concerns: Feels Safe At This Time Assistive Devices: Denture - Upper, Denture - Lower and Glasses Review of Systems +vision changes Physical Exam Neurological Examination: Mental Status: Awake and alert. Oriented to person, place, and time. Fluent. Comprehension intact. Affect appropriate. Cranial Nerves: II: Reads NIHSS cards, pupils 3/3 to 2/2, lubin grossly intact. III/IV/: Versions intact without nystagmus, no gaze preference. V: Facial sensation symmetric to light touch VII: Facial expression symmetric VIII: Hearing intact to voice IX/X: Palate elevates symmetrically Motor: Strength was symmetric and antigravity throughout. Pronator drift was absent. There were no abnormal movements. Sensory: Sensation to light touch was intact. Reflexes: Unable to assess over telemedicine Results & Data Vital Signs (Past 12 Hours) Vital Signs Temp Pulse Resp BP Pulse Ox O2 Del Method 07/05/23 10:42 36.3 C L 51 L 20 179/92 H 97 Room Air 07/05/23 07:31 36.5 C 56 L 19 166/96 H 95 Room Air 07/05/23 03:00 36.9 C 55 L 19 164/90 H 95 Room Air 07/05/23 02:37 52 L 168/85 H 07/05/23 01:37 53 L 159/80 H 07/05/23 00:45 77 143/89 H Laboratory Results Abnormal lab results 07/04/23 07/05/23 Range/Units 15:01 05:43 RDW Std Deviation 47.3 H (36.4-46.3) fL RDW Coeff of Tova 14.8 H (11.5-14.5) % [place] # (Auto) 0.60 H (0.11-0.59) K/uL Chloride 108 H (98-107) mmol/L Hemoglobin A1c 5.8 H (4.5-5.6) % Urine Protein 1+ H (Negative) U Epithel Cells (Auto) 5-10 H (0-5) /lpf U Random Total Protein 37.7 H (0-11.9) mg/dl Protein/Creatinin Ratio 0.7 H (0-0.2) Diagnostic Findings Brain MRI 07/04/23 14:28 Brain MRI WITHOUT CONTRAST HISTORY: Dizziness. Headache. Vision changes. TECHNIQUE: Multiplanar multisequence MRI of the brain was performed without the use of contrast. COMPARISON STUDY: Head CT 07/04/2023. FINDINGS: There is small focus of restricted diffusion within the left posterior occipital lobe measuring 1.3 cm. This is consistent with an acute infarct. There may be an additional punctate focus of restricted diffusion within the central pasquale measuring 5 mm on image 7. This likely represents an acute lacunar infarct. There is also a punctate focus of restricted diffusion within the right occi pital lobe on image 9 consistent with an acute lacunar infarct. The midline structures are intact. Mild mucosal thickening within the paranasal sinuses. The left mastoid air cells are clear. A few partially opacified right mastoid air cells. The orbits are unremarkable. The major vascular flow-voids at the skull base are well-maintained. The ventricles and sulci are within normal limits for age. Old lacunar infarct seen within the left thalamus. Old lacunar infarct seen within the cerebellar hemispheres. There is no mass, hematoma, or midline shift. Periventricular and subcortical white matter T2 hyperintense foci favor moderate microvascular ischemic change. Mild cytotoxic edema associated with the left posterior occipital lobe infarct. IMPRESSION: 1. A small acute left posterior occipital lobe infarct measuring 1.3 cm. 2. Acute punctate lacunar infarcts seen within the right occipital lobe and pasquale. 3. Moderate microvascular ischemic changes. ACT 112: Negative or not required by law. Electronically signed by: Bryan Townsend M.D. 07/04/2023 7:46 PM Renal Artery Duplex 07/04/23 15:29 US duplex renal artery CLINICAL HISTORY: Evaluate for renal artery stenosis. COMPARISON STUDY: No previous studies for comparison. TECHNIQUE: Color and duplex Doppler sonography of the abdominal aorta and renal arteries was performed. FINDINGS: The proximal abdominal aorta is ectatic, measuring approximately 2.7 cm in caliber. There is moderate plaque within the proximal abdominal aorta. Peak systolic velocity within the abdominal aorta was 53 cm/s. Bilateral renal arteries and veins are patent. There was no hydronephrosis. Peak systolic velocity within the right renal artery was 190 cm/s. There was an elevated peak systolic velocity of 390 cm/s within the proximal left renal artery. Segmental waveforms within the kidneys were normal. IMPRESSION: 1. Significantly elevated velocity within the proximal left renal artery sugge stive of renal artery stenosis. CTA of the abdomen could be obtained for confirmation. 2. No definite sonographic evidence for right renal artery stenosis. 3. Ectatic proximal abdominal aorta with moderate plaque. ACT 112: Negative or not required by law. Electronically signed by: Judson White M.D. 07/04/2023 4:53 PM Abdomen/Pelvis CTA 07/04/23 17:04 CT angio abdomen pelvis w con CT DOSE: 539.29 mGy.cm CLINICAL HISTORY: Abnormal renal artery ultrasound. Assess for left-sided renal artery stenosis. TECHNIQUE: Multiaxial CT images of the abdomen and pelvis were performed following the intravenous administration of contrast to evaluate the renal arteries. 3-D/maximal intensity projection images in the sagittal and coronal planes were also obtained for the CTA portion of the examination. A dose lowering technique was utilized adhering to the principles of ALARA. COMPARISON STUDY: None. FINDINGS: There is moderate atherosclerotic plaque within the abdominal aorta and common iliac arteries. This results in up to 40% focal stenosis within the mid abdominal aorta. This is best seen image 126. No significant stenosis within the bilateral common or external iliac arteries. The visualized femoral arteries appear patent. Mild to moderate multifocal narrowing within the proximal bilateral internal iliac arteries. The celiac artery and superior mesenteric artery are widely patent. There is moderate focal stenosis of up to 50% at the takeoff of the inferior mesenteric artery best seen on image 147. Otherwise, the mid to distal inferior mesenteric artery appears patent. The splenic artery arises from the superior mesenteric artery. There are 3 right renal arteries and 2 left renal arteries. The bilateral renal arteries are widely patent with no evidence for stenosis, occlusion, or aneurysm. Mild aneurysmal dilatation of the abdominal aorta measuring up to 4.0 x 3.5 cm. The lung bases are clear. No pneumoperitoneum. No pneumatosis. Posterior decompression within the lower lumbar spine. No acute fractures. The heart is mildly enlarged with mild left ventricular hypertrophy. A few scattered hypervascular foci within the liver with the largest in the right hepatic dome on image 31 measuring 11 mm. These are indeterminate and could represent hypervascular lesions and/or perfusion variants. The gallbladder, adrenal glands, and pancreas are unremarkable. Peripherally calcified splenic cyst measuring 1.8 cm. No hydronephrosis. Bilateral renal cysts with the largest on the left measuring 1.8 cm. No retroperitoneal lymphadenopathy. No pelvic lymphadenopathy or pelvic free fluid. The prostate gland is enlarged. Normal bladder. No bowel wall thickening or obstruction. Normal appendix. IMPRESSION: 1. No evidence for renal artery stenosis. 2. A 4.0 x 3.5 cm infrarenal abdominal aortic aneurysm. 3. A few scattered hypervascular foci within the liver measuring 12 mm. These are indeterminate could represent hypervascular lesions and/or perfusion variants. The absence of a known malignancy these favor benign lesions. 4. Additional findings as described above. ACT 112: Negative or not required by law. Electronically signed by: Bryan Townsend M.D. 07/04/2023 7:36 PM
--- NOTE | 2023-07-05 15:12 | Pharmacy Report ---
- Date of Service July 05, 2023 - Pharmacy CVA/TIA Medication Review Medications to Prevent Stroke handout has been added to the patients discharge packet. Antiplatelet(s) * Aspirin 81 mg Cholesterol * High intensity statin: atorvastatin 40 mg daily DVT Prophylaxis * SCD knee Therapeutic Anticoagulation * No history of Afib/Aflutter noted but recommendation for cardiac event monitoring outpatient Type 2 Diabetes * Patient does not have T2DM, A1c indicated pre-diabetes.
[2023-07-05] MEDS: NICOTINE 21 MG/24 HR TDSY TD SCH (18:36)
[2023-07-06 05:22] LABS: Basophils # (auto) 0.05 K/uL (0.00-0.20); Basophils % (auto) 0.7 %; Eosinophils # (auto) 0.53 K/uL (0.00-0.50); Eosinophils % (auto) 7.4 %; Hemoglobin 15.5 g/dl (14.0-18.0); Immature Granulocytes # (auto) 0.02 K/uL (0.01-0.20); Immature Granulocytes % (auto) 0.3 %; Lymphocytes # (auto) 1.81 K/uL (1.20-3.40); Lymphocytes % (auto) 25.2 %; Mean Corpuscular Volume 87.9 fL (80.0-100.0); Mean Platelet Volume 11.8 fL (9.4-12.4); Monocytes # (auto) 0.67 K/uL (0.11-0.59); Monocytes % (auto) 9.3 %; Neutrophils # (auto) 4.09 K/uL (1.40-6.50); Neutrophils % (auto) 57.1 %; Platelet Count 189 K/uL (130-400); RDW Coefficient of Variation 14.6 % (11.5-14.5); RDW Standard Deviation 46.5 fL (36.4-46.3); Red Blood Count 5.35 M/uL (4.70-6.10); White Blood Count 7.17 K/ul (4.8-10.8)
[2023-07-06 05:45] LABS: BUN Creatinine Ratio 17.2 (10-20); Calcium 8.8 mg/dl (8.6-10.3); Creatinine Clr Calc Pharmacy 52.7 ml/min; Est GFR (African American) 65.7 ml/min; Est GFR (Non-African American) 56.7 ml/min; Magnesium 1.9 mg/dl (1.7-2.4); Phosphorus 2.9 mg/dl (2.5-4.9); Potassium 3.9 mmol/L (3.5-5.1)
[2023-07-06] MEDS: hydrALAZINE HCL 20 MG/ML VIAL IV PRN (08:12)
[2023-07-06] MEDS: amLODIPine BESYLATE 5 MG TAB PO ONE (11:29)
[2023-07-06] MEDS ORDERED: STROKE PATIENT DISCHARGE STA (14:13)
--- NOTE | 2023-07-06 14:25 | Discharge Summary ---
Date of Service July 06, 2023 Admission HPI Per Admitting Provider This is a 68 yr old M who has a significant PMH of HTN and CKD3 who presents to ED 2/2 double vision, GONZALEZ and dizziness since last night. His outpatient PCP records were reviewed. is a bedside who also helps with history. He has a baseline cr of 1.3-1.4. He follows with Dr. Green and has been having difficulty with BP management over last several months. He has been managed on Losartan, coreg and felodipine. He states he hasn't felt right since taking these medications. Over the last 1 month he was taking all of his medications. He has been monitoring his BP at home. His blood pressure would be labile. He states he would feel best when his blood pressure ran high and when it would go lower with the medications he felt like, "crap." He did not take any medications this morning. He also has not been taking his losartan for the past week. Over the last month he denies any changes. He did have sinus congestion approx 2 weeks ago, but denies any fever and chills. He states he has been having chest pain off and on in ED, left sided, non radiating and would come and go. He feels SOB when he takes his BP medications. He states blurry/double vision started last night. Feels like objects are stacked on top of 1 another. He also complains of dizziness and feeling, "off balance." He denies any current fever, chills, sweats, lightheadedness, syncope, hemoptysis, cough, nausea, vomiting, abdominal pain, change in bowel or urinary habits. He has a positive FH of stroke. His father was 87 and his brother also had a stroke in past. In ED patient was significantly hypertensive despite 2 doses of IV hydralazine 5 mg. He underwent head CT, CTA and chest x-ray. Head CT revealed mild to moderate multifocal stenoses of the intracranial arteries but otherwise no acute abnormality. Emphysema also noted on chest x-ray. Admission Exam Per Admitting Provider GENERAL APPEARANCE: AxOx4,no acute distress, but appears mildly uncomfortable HEENT: NC, AT. MMM. EOMI, clear conjunctiva, oropharynx clear. +left beating nystagmus NECK: Supple without lymphadenopathy. No stiffness or restricted ROM. HEART: Normal rate and regular rhythm, normal S1/S1, no m/r/g LUNGS: CTAB, moving air well. No crackles or wheezes are heard. bilateral clubbing of finger tips ABDOMEN: Soft, nontender, nondistended with good bowel sounds heard. BACK: No CVAT, no obvious deformity. EXTREMITIES: Without cyanosis, clubbing or edema. NEUROLOGICAL: Grossly nonfocal. Alert CNII-CXII intact , moving all 4 extremities 5/5 strength. formal HINTs exam limited /2 Skin: Warm and dry without any rash. Principal Diagnosis Acute CVA HTN emergency Discharge Exam GENERAL APPEARANCE: AxOx4,no acute distress HEENT: NC, AT. MMM. EOMI, clear conjunctiva, oropharynx clear. NECK: Supple HEART: rrr,, normal S1/S1, no m/r/g LUNGS: CTAB, moving air well. No crackles or wheezes are heard. ABDOMEN: Soft, nontender, nondistended with good bowel sounds heard. EXTREMITIES: moves extremities NEUROLOGICAL: Awake alert oriented, speech fluent, no facial asymmetry, answers appropriately, moves extremities. Skin: Warm and dry without any rash. Discharge Data Allergies Allergy/AdvReac Type Severity Reaction Status Date / Time NONE Allergy Unknown Uncoded 11/29/02 05:57 Consultations 07/04/23 14:19 ED Decision to Admit Stat 07/04/23 15:09 Consult Neurology Routine 07/04/23 17:07 Consult Cardiology Routine Ordered Studies 07/04/23 08:46 CT angio head w con Stat CT angio neck with con Stat CT head/brain wo con Stat 07/04/23 14:28 MR brain wo con Routine 07/04/23 15:29 US duplex renal artery Routine 07/04/23 17:04 CTA abdomen pelvis w con [CT angio abdomen pelvis w con] Stat Hospital Course (1) Hypertensive emergency: (2) Vision changes: (3) Tobacco abuse: Plan This is a 68 yr old M who has a significant PMH of HTN and CKD3 who presents to ED 2/2 double vision, GONZALEZ and dizziness since last night. Found to have CVA on MRI CVA Visual changes (diplopia) Headache/Vertigo Initially attributed pt's symptoms to uncontrolled hypertension. Was found to have CVA. Brain MR - 1. A small acute left posterior occipital lobe infarct measuring 1.3 cm. 2. Acute punctate lacunar infarcts seen within the right occipital lobe and pasquale. 3. Moderate microvascular ischemic changes. Head CT - No acute intracranial findings. Head CTA - 1. No aneurysm, dissection, high-grade stenosis or arterial occlusion. 2. Mild to moderate multifocal stenoses of the intracranial arteries as above. Neck CTA - 1. Moderate atherosclerotic plaque within the left carotid bifurcation without significant stenosis. 2. No dissection, aneurysm or significant stenosis within the major vessels within the neck. 3. Emphysema. Neurology consulted - Stroke with cerebral ischemia: Elfego Puente is a 68 yo M presenting with embolic stroke throughout the posterior circulation. I suspect this is secondary to athero in the posterior circulation vessels rather than a cardioembolic source. While HTN is important to manage with a goal BP of <120/70, this is not the primary cause of his stroke. This is not PRES seen with hypertensive emergency. Recommend he continues BP control appointments with his PCP. Agree with aspirin 81mg daily and lipitor 40mg daily to address his ICAD. -- Continue aspirin 81mg daily -- Continue Lipitor 40mg daily -- Continue BP control as an outpatient -- Consider cardiac event monitor through PCP office for paroxysmal afib -- Please contact us with any further questions, patient can follow-up with neurology in 4-6 weeks. Hypertensive emergency PCU initially place on nicardipine gtt for BP control on admission - that was stopped and pt on PO meds hold home dose felodipine while on nicardipine hold coreg (pt bradycardic and ? if pt fatigue, malaise and dizziness related to low heart rate) resumed losartan and amlodipine was added Echocardiogram obtained -EF 60 to 65%. Mild concentric LVH. Pulse-wave TDI of the anterior and posterior mitral annulus demonstrates abnormal LV relaxation. No significant valvular pathology. secondary hypertension w/u with renal duplex, catecholamines, serum alexandru/renin (bloodwork pending) Renal US initailly concerning for renal artery stenosis however CTA abd/pelvis was obtained - and did not confirm this. It did show AAA. CTA - 1. No evidence for renal artery stenosis. 2. A 4.0 x 3.5 cm infrarenal abdominal aortic aneurysm. 3. A few scattered hypervascular foci within the liver measuring 12 mm. These are indeterminate could represent hypervascular lesions and/or perfusion variants. The absence of a known malignancy these favor benign lesions. Cardiology consulted - recommend patient stay for 24 more hours for close monitoring and adjustment of BP medications. Discussed with patient multiple times, and he cannot stay in the hospital any longer and wants to be discharged. Plan to discharge on losartan 100 mg daily, amlodipine 10 mg daily, and will also add hydrochlorothiazide 12.5 mg daily. He will need blood work, BMP, in 5 to 7 days. He has PCP follow-up scheduled for July 12. Also discussed close BP monitoring at home which patient is willing to do. AAA - control BP as above - follow up with vascular surgery CKD-3 baseline cr 1.3-1.4 cr. 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 Total Time Total Time Spent Total Time Spent (In Minutes): 40 Discharge Plan Discharge Items Patient Disposition: Home - Self-Care Reason For Visit: HTN EMERGENCY Discharge Diagnosis: Acute CVA HTN emergency Activity: Per Instructions section Non-emergency contact: Primary Care Provider, Sap Administrator and Neurologist Call non-emergency contact if: you have any medication questions and your symptoms worsen Follow-up/Referrals: Maryanne Tran PA-C [Physician Industrial Maintenance Repairer] - (Date & Time 08/03/2023 12:40 PM Provider Maryanne Tran PA-C Department Neurology [facility] ) Duran Green MD [Primary Care Provider] - (Date & Time 07/12/2023 11:20 AM Provider Holly Guerra PA-C Department Family Medicine [facility] ) Diet: Heart Healthy and Low Sodium (2gm) Addtl Attending Provider Instructions: Follow up with primary care physician, neurologist and deputy city clerk. The appointment with your primary care physician was scheduled for you for July 12. Continue taking losartan 100 mg daily. Take aspirin 81 mg daily and atorvastatin 40 mg daily. You were started on a new medication for your blood pressure - amlodipine - take it as prescribed - 10 mg daily. You were also started on hydrochlorothiazide 12.5 mg daily. You should have blood work done - BMP in 5-7 days. It is recommended that you wear a cardiac event monitor through PCP office/ or cardiology for paroxysmal afib. You will also need to follow up with vascular surgery as outpatient regarding you abdominal aortic aneurysm. If you can, monitor your blood pressure at home. It is recommended that you stay in the hospital for 24 more hrs to help adjust your blood pressure medications. Pending Studies at Discharge: Yes Studies:: secondary hypertension work up Stand-Alone Forms: My [facility], Smoking Cessation, Medications to Prevent Stroke Medications and DC Order Prescriptions: New atorvastatin 40 mg Tablet 40 mg PO QAM Qty: 30 0RF aspirin 81 mg Tablet,Delayed Release (Dr/Ec) 81 mg PO QAM Qty: 30 0RF amlodipine 10 mg tablet 10 mg PO DAILY Qty: 30 0RF hydrochlorothiazide 12.5 mg capsule 12.5 mg PO DAILY Qty: 30 0RF Continued loratadine [Claritin] 10 mg Tablet 10 mg PO DAILY PRN (Reason: ALLERGIES) losartan 100 mg tablet 100 mg PO DAILY Discontinued carvedilol 25 mg tablet 25 mg PO QAM Rx Instructions: Patients stated that her has only been taking once a day felodipine 10 mg tablet extended release 24 hr 10 mg PO QAM Discharge Orders: Discharge Order (Routine); Ordered 07/06/23 Ordered By: Daniel Julio Admission Data Admit Date/Time: 07/04/23 14:28 Attending Provider: Daniel Julio Admit Provider: Jazmin Myeers Primary Care Provider: Duran Green Other Providers: Jazmin Meyers; Luis Miguel Pang; Michele López
--- NOTE | 2023-07-06 16:38 | Cardiology Progress Note ---
Date of Service July 06, 2023 Assessment & Plan (1) Hypertensive emergency: (2) CVA (cerebral vascular accident): (3) AAA (abdominal aortic aneurysm): (4) Tobacco abuse: Plan Patient admitted for hypertensive emergency with visual disturbances. Brain imaging confirms small left posterior occipital infarct and punctate lacunar infarct in the right occipital lobe. Blood pressure improved, however, remains labile with systolic blood pressure greater than 200 earlier today. Initially treated with IV nicardipine infusion, discontinued 07/05/2023. Noncompliance with home medications noted. Prescribed carvedilol as outpatient with bradycardia noted on admission. Medications prescribed thus far include losartan 100 mg daily and amlodipine 10 mg daily. Utilizing hydralazine as needed. Statin and aspirin added. Recommend addition of diuretic therapy, hydrochlorothiazide 12.5 mg daily. Recommend ongoing admission for blood pressure management in the setting of hypertensive urgency and cerebrovascular accident. Diagnosed with 4.0 cm infrarenal abdominal aortic aneurysm. Recommend outpatient vascular surgery evaluation. Smoking cessation recommended. I spent a total of 40 minutes on the date of service in preparation, delivery, and documentation of the care provided to this patient, excluding any time spent in the performance of separately billed services. Admission and Anticipated Discharge Date Admission Date: July 04, 2023 Subjective Patient seen examined the bedside. Requesting discharge. Elevated blood pressure readings recorded this a.m. Denies chest pain, headache, or shortness of breath. No recurrent blurry vision. Review of Systems Review of Systems: All systems reviewed & are unremarkable except as noted in Subjective Physical Exam Constitutional: well nourished; no acute distress Respiratory: no respiratory distress, no labored breathing and no retractions Auscultation: no crackles, no rales, no rhonchi and no wheezes Cardiovascular: Rate/Rhythm: regular rate and regular rhythm Heart Sounds: normal S1 and normal S2; no murmur Vessels: radial pulses present; no JVD and no carotid bruit Extremities: no edema Gastrointestinal (Abdomen): Inspection/Auscultation: normal bowel sounds; abdomen not distended Percussion/Palpation: abdomen soft; abdomen nontender, no guarding and abdomen not rigid Neurologic: CN's II-XI intact bilaterally and moves all extremities; no focal motor deficits Results & Data Vital Signs (Past 12 Hours) Vital Signs Temp Pulse Resp BP Pulse Ox O2 Del Method 02/08/24 14:25 36.5 C 54 L 16 164/83 H 97 07/06/23 11:30 36.5 C 54 L 16 164/83 H 97 Room Air 07/06/23 08:19 183/103 H 07/06/23 07:47 36.4 C L 58 L 21 225/117 H 96 Room Air Laboratory Results CBC 07/06/23 Range/Units 04:15 WBC 7.17 (4.8-10.8) K/ul RBC 5.35 (4.70-6.10) M/uL Hgb 15.5 (14.0-18.0) g/dl Hct 47.0 (42.0-52.0) % Plt Count 189 (130-400) K/uL Neut # (Auto) 4.09 (1.40-6.50) K/uL Lymph # (Auto) 1.81 (1.20-3.40) K/uL [place] # (Auto) 0.67 H (0.11-0.59) K/uL Eos # (Auto) 0.53 H (0.00-0.50) K/uL Baso # (Auto) 0.05 (0.00-0.20) K/uL Comprehensive Metabolic Panel 07/06/23 Range/Units 04:15 Sodium 138 (136-145) mmol/L Potassium 3.9 (3.5-5.1) mmol/L Chloride 109 H (98-107) mmol/L Carbon Dioxide 22 (21-32) mmol/L BUN 22 (6-23) mg/dl Creatinine 1.28 (0.6-1.4) mg/dl Glucose 102 H (70-99(Fasting)) mg/dl Calcium 8.8 (8.6-10.3) mg/dl Intake and Output 07/06/23 07/06/23 07/06/23 06:59 14:59 22:59 Intake Total 480 / 480 Balance 480 / 480 Intake: Oral 480 / 480 Other: # Unmeasured Voids 1 2 Weight 68.5 kg 68.5 kg Weight Measurement Method Built in [facility] Patient Weight 07/07/23 06:59 Weight 68.5 kg
[2023-07-07] MEDS ORDERED: amLODIPine BESYLATE 5 MG TAB PO SCH (09:00)
--- NOTE | 2023-07-10 12:38 | Pharmacy Report ---
Pharmacist Stroke Counseling - Date of Service July 10, 2023 - Scope: Pharmacy has been consulted to provide medication discharge counseling for this patient admitted with ischemic stroke as per the Pharmacist Discharge Counseling for Stroke Patients Protocol. - Medications on Discharge: Home Medications Medication Instructions Recorded Confirmed loratadine 10 mg tablet (Claritin) 10 mg PO DAILY PRN ALLERGIES 07/04/23 07/04/23 losartan 100 mg tablet 100 mg PO DAILY 07/04/23 07/04/23 New Rx's Medication Instructions Recorded amlodipine 10 mg tablet 10 mg PO DAILY #30 tabs 07/06/23 aspirin 81 mg tablet,delayed 81 mg PO QAM #30 tabs 07/06/23 release atorvastatin 40 mg tablet 40 mg PO QAM #30 tabs 07/06/23 hydrochlorothiazide 12.5 mg capsule 12.5 mg PO DAILY #30 caps 07/06/23 - Action: The above medications, specifically ones for stroke treatment/prophylaxis, have been reviewed in detail with the patient and/or patient reimbursement representative(s) prior to discharge. This includes indication, common adverse reactions, drug interactions, and medication administration. Medication counseling has been employed using the teach-back method to ensure understanding. - Outcome: The patient and/or patient reimbursement representative(s) have demonstrated understanding of the medications. Additional comments: - Patient confirmed that medications were picked up from the pharmacy after discharge. Patient reports that his primarily takes care of his medications for him. - Reviewed medications changes and additions. Patient with no questions regarding medications at this time. Thank you for allowing pharmacy to be involved in the care of this patient. Please call [phone] with any additional questions
[2023-07-12 08:17] LABS: Creatinine, Random Urine 87 mg/dL (20-320); Total Metanephrine 366 mcg/g cr (149-603)
== END 2023-07-06 14:51 | disposition home or self-care (01) | DRG 304 ==
LOC: ED 08:27 → 4W 14:28 → SUATTDRO 14:28 → 4W 17:57

== ENCOUNTER 2023-10-21 11:36 | Inpatient (IN) ==
--- NOTE | 2023-10-21 12:07 | Emergency Department Note ---
History of Present Illness General Chief Complaint: Referred by Doctor Stated Complaint: MRI YESTERDAY, STROKE WITHIN PAST 3 DAYS Time Seen by Provider: 10/21/23 11:51 History of Present Illness Provider Complaint: + abnormal lab Returns today for: + called because of abnormal lab/test Description of abnormal result: Outpatient MRI yesterday showed a acute to subacute stroke. Context: + called for abnormal lab result Associated symptoms: no fever, no chills, no chest pain, no shortness of breath or no rash HPI narrative: No numbness, no weakness, no difficulty walking, no difficulty speaking. No seizures Home Medications Medication Instructions Recorded Confirmed Type losartan 100 mg tablet 100 mg PO QAM 07/04/23 10/21/23 History amlodipine 10 mg tablet 5 mg PO DAILY 10/21/23 10/21/23 History clopidogrel 75 mg tablet (Plavix) 75 mg PO QAM 10/21/23 10/21/23 History Allergies Allergy/AdvReac Type Severity Reaction Status Date / Time NONE Allergy Unknown Uncoded 11/29/02 05:57 Past Med/Surg History Problem List (Updated 10/21/23 @ 12:57 by Bassem Rice MD) Stroke with cerebral ischemia AAA (abdominal aortic aneurysm) CVA (cerebral vascular accident) (Acute) Tobacco abuse Hypertensive emergency Hypertension (Acute) Vision changes (Acute) Headache (Acute) Dizziness (Acute) Medical History Hepatitis C virus infection cured after antiviral drug therapy Chronic low back pain CKD (chronic kidney disease) stage 3, GFR 30-59 ml/min Surgical History Hx of colonoscopy History of lumbar laminectomy Family History Father Stroke Brother Stroke Social History Smoking Status: Current every day smoker Tobacco Type: Cigarettes Age Started Using Tobacco: 11; Cigarettes Per Day: 1-2 packs per day; Hx Alcohol Use: No Hx Substance Use: No Preferred Language: Nicaraguan Communication Ability: Effective Brim Rounder Required: No Beliefs That Will Affect Care: None Current Living Situation: Spouse Feels Safe at Home: Yes Assistive Devices: None Physical Exam 2 Vital Signs: Vital Signs - 24 hr 10/21/23 11:38 10/21/23 12:01 10/21/23 12:18 Temperature 36.2 C L Temperature Source Temporal Artery Sc an Pulse Rate 72 65 Pulse Rhythm Regular Pulse Strength Normal Respiratory Rate 20 Respiratory Effort / Characteristics Non-Labored Sponta neous Respiratory Depth Normal Blood Pressure 158/82 H Blood Pressure Carissa n 107 Pulse Oximetry 97 Oxygen Delivery Me thod Room Air Room Air Sepsis Recent Feve r Within 48 Hours No Sepsis New/Unexpla ined Change in Men lucien Status N/A Sepsis Action Take n by Nursing No Action Required Physical Exam: Physical Exam HENT: Exam performed. -Head: Normocephalic and atraumatic. -Right Ear: External ear normal. No mastoid erythema -Left Ear: External ear normal. No mastoid erythema -Mouth/Throat: The oropharynx is clear and moist. No trismus in the jaw. No dental abscesses or uvula swelling. No oropharyngeal exudate or tonsillar abscesses. EYES: Conjunctivae and EOM are normal. Pupils are equal, round, and reactive to light. Right eye exhibits no discharge. Left eye exhibits no discharge. No scleral icterus. Funduscopic exam showed no AV nicking or papilledema bilaterally. NECK: Normal range of motion. Neck supple. No JVD present. No spinous process tenderness present. No rigidity. No tracheal deviation and normal range of motion present. No Brudzinski's sign and no Kernig's sign noted. CV: Normal rate, regular rhythm, normal heart sounds and intact distal pulses. There is no peripheral edema. Palpable radial pulses bue. PULM/CHEST: Effort normal and breath sounds normal. No respiratory distress. No stridor. She has no wheezes. She has no rales. MUSC/SKEL: Normal range of motion. There is no peripheral edema, tenderness or deformity. NEURO: She is alert and oriented to person, place, and time. She has normal strength. No cranial nerve deficit or sensory deficit. Coordination and gait normal. GCS eye subscore is 4. GCS verbal subscore is 5. GCS motor subscore is 6. Cerebellar tests wnl. No clonus. SKIN: Skin is warm and dry. She is not diaphoretic. PSYCH: She has a normal mood and affect. Behavior is normal. Judgment and thought content normal. Course Course 1151: The patient was evaluated in room A10. A complete history and physical exam was performed Medical Decision Making Medical Records Attestation: I reviewed the patient's medical records. External medical records were obtained via the [employer] EMR by [employer] property management bookkeeper. MRI of the brain conducted yesterday showed a subacute left 6 mm infarct of the left supra and territorial cerebellar hemisphere estimated age less than 3 days no hemorrhage transformation. Laboratory Data Attestation: I reviewed the patient's lab results. 10/21/23 12:10 10/21/23 12:10 Lab Results 10/21/23 Range/Units 12:10 WBC 5.61 (4.8-10.8) K/ul RBC 4.82 (4.70-6.10) M/uL Hgb 14.4 (14.0-18.0) g/dl Hct 42.8 (42.0-52.0) % MCV 88.8 (80.0-100.0) fL MCH 29.9 (25.0-34.0) pg MCHC 33.6 (32.0-36.0) g/dL RDW Std Deviation 46.4 H (36.4-46.3) fL RDW Coeff of [place] 14.4 (11.5-14.5) % Plt Count 174 (130-400) K/uL MPV 11.4 (9.4-12.4) fL Immature Gran % (Auto) 0.4 % Neut % (Auto) 70.5 % Lymph % (Auto) 14.1 % [place] % (Auto) 8.2 % Eos % (Auto) 5.9 % Baso % (Auto) 0.9 % Neut # (Auto) 3.96 (1.40-6.50) K/uL Lymph # (Auto) 0.79 L (1.20-3.40) K/uL [place] # (Auto) 0.46 (0.11-0.59) K/uL Eos # (Auto) 0.33 (0.00-0.50) K/uL Baso # (Auto) 0.05 (0.00-0.20) K/uL Immature Gran # (Auto) 0.02 (0.01-0.20) K/uL PT 11.9 (9.0-12.0) Seconds INR 1.1 (0.9-1.1) APTT 28 (21-31) Seconds PTT Ratio 1.0 Sodium 136 (136-145) mmol/L Potassium 3.7 (3.5-5.1) mmol/L Chloride 106 (98-107) mmol/L Carbon Dioxide 22 (21-32) mmol/L Anion Gap 8 (3-11) BUN 21 (6-23) mg/dl Creatinine 1.28 (0.6-1.4) mg/dl Est Cr Clr Drug Dosing 47.8 ml/min Est GFR ( Amer) 65.7 ml/min Est GFR (Non-Af Amer) 56.7 ml/min BUN/Creatinine Ratio 16.4 (10-20) Glucose 141 H (70-99(Fasting)) mg/dl Calcium 9.0 (8.6-10.3) mg/dl MDM Narrative Cardiac monitoring: An order was placed for continuous cardiac monitoring. The monitor shows a rate of 70 with sinus rhythm interpreted by me Outpatient MRI showed a subacute stroke. [facility] hospitalist team as was planned by his referring doctor. Impression & Plan CVA (cerebral vascular accident) Discharge Plan Visit Data Chief Complaint: Referred by Doctor Stated Complaint: MRI YESTERDAY, STROKE WITHIN PAST 3 DAYS ED Provider: Bassem Rice Discharge Problem: CVA (cerebral vascular accident) Patient Disposition: Admitted As Inpatient Forms Stand Alone Forms: My [facility] Prescriptions Prescriptions: No Action losartan 100 mg tablet 100 mg PO QAM clopidogrel [Plavix] 75 mg tablet 75 mg PO QAM amlodipine 10 mg tablet 5 mg PO DAILY Referrals Referrals: Holly Guerra PA-C [Primary Care Provider] -
[2023-10-21 12:38] LABS: Basophils # (auto) 0.05 K/uL (0.00-0.20); Basophils % (auto) 0.9 %; Eosinophils # (auto) 0.33 K/uL (0.00-0.50); Eosinophils % (auto) 5.9 %; Hematocrit (blood only) 42.8 % (42.0-52.0); Hemoglobin 14.4 g/dl (14.0-18.0); Immature Granulocytes # (auto) 0.02 K/uL (0.01-0.20); Immature Granulocytes % (auto) 0.4 %; Lymphocytes # (auto) 0.79 K/uL (1.20-3.40); Lymphocytes % (auto) 14.1 %; Mean Corpuscular Hemoglobin 29.9 pg (25.0-34.0); Mean Corpuscular Hgb Conc 33.6 g/dL (32.0-36.0); Mean Corpuscular Volume 88.8 fL (80.0-100.0); Mean Platelet Volume 11.4 fL (9.4-12.4); Monocytes # (auto) 0.46 K/uL (0.11-0.59); Monocytes % (auto) 8.2 %; Neutrophils # (auto) 3.96 K/uL (1.40-6.50); Neutrophils % (auto) 70.5 %; Platelet Count 174 K/uL (130-400); RDW Coefficient of Variation 14.4 % (11.5-14.5); RDW Standard Deviation 46.4 fL (36.4-46.3); Red Blood Count 4.82 M/uL (4.70-6.10); White Blood Count 5.61 K/ul (4.8-10.8)
[2023-10-21 12:48] LABS: BUN Creatinine Ratio 16.4 (10-20); Creatinine Clr Calc Pharmacy 47.8 ml/min; Est GFR (African American) 65.7 ml/min; Est GFR (Non-African American) 56.7 ml/min; Potassium 3.7 mmol/L (3.5-5.1)
[2023-10-21 12:52] LABS: INR 1.1 (0.9-1.1); Partial Thromboplastin Time 28 Seconds (21-31); Prothrombin Time 11.9 Seconds (9.0-12.0)
--- NOTE | 2023-10-21 13:03 | History & Physical Report ---
Date of Service October 21, 2023 Assessment & Plan (1) Stroke with cerebral ischemia: (2) Dizziness: (3) Vision changes: (4) Hypertension: (5) Tobacco use disorder: (6) CKD (chronic kidney disease) stage 3, GFR 30-59 ml/min: (7) AAA (abdominal aortic aneurysm): Plan This is a 68yo M with a PMH of history of CVA in Jun 2023, tobacco use disorder, HTN, CKD III who was directed to the ED from neurology after outpatient MRI from yesterday acute-subacute stroke findings. Subacute stroke H/o CVA in Jun 2023 on plavix who was having dizziness/visual changes over the past month, sent in by neuro after 10/20/23 outpatient brain MRI revealed : "subacute 6 mm infarct of the left superior lateral cerebellar hemisphere, estimated age less than 3 days. No hemorrhagic transformation. Mildly extensive scattered foci of T2 hyperintensity in the cerebral white matter compatible with chronic small vessel ischemic change." Was previously transitioned from aspirin to plavix due to s/e of acid reflux Discontinued atorvastatin last month due to s/e of dizziness / eye pain States he as been compliant with Plavix Decreased smoking from 3 ppd to 2 ppd since Jun [address] head wo con to r/o bleed, obtain echo with bubble study, a1c and fasting lipids Routine neuro consult PT/OT/speech consults Okay to eat once passes dysphagia screen HTN BP 124/63. 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 Caruso. Please see addendum. I spent a total of 75 minutes coordinating, documenting, and providing care for this patient excluding time spent in the performance of separately billed services. History of Present Illness Chief Complaint: sent in for stroke on outpatient MRI Primary Care Provider: Holly Guerra PA-C This is a 68yo M with a PMH of history of CVA in Jun 2023, tobacco use disorder, HTN, CKD III who was directed to the ED from neurology after outpatient MRI from yesterday acute-subacute stroke findings. Back in June 2023, patient was admitted for a stroke and was started on antihypertensive medications, antiplatelet agents and cholesterol medications at that time. Within a month, HCTZ was discontinued a few months ago and aspirin was discontinued in favor of plavix due to side effects of nausea and acid reflux. Has been tolerating the Plavix since without issue. Patient was continuing to deal with intermittent dizziness and visual changes he was attributing to his BP meds and followed up with Dr. Shahid at the beginning of the month. His statin was discontinued at that time as he felt it was causing him "eye strain" and dizziness. Dr. Shahid was concerned dizziness and visual changes were of neurologic etiology and referred patient to neuro. Neuro ordered repeat brain MRI after seeing him a few weeks ago, which patient had yesterday, revealing a subacute 6 mm infarct of the left superior lateral cerebellar hemisphere, estimated age less than 3 days. No hemorrhagic transformation. Mildly extensive scattered foci of T2 hy perintensity in the cerebral white matter compatible with chronic small vessel ischemic change. Patient states he has been compliant with Plavix, losartan and amlodipine. Decreased smoking from3 ppd to 2 ppd. Not interested in fully quitting at this time but trying to decrease. Denies any focal weakness, ambulatory dysfunction, difficulty speaking or swallowing. Denies any dizziness or visual changes at this time but is still happening intermittently. Denies any fever, chills, headache, chest pain, palpitations, nausea, vomiting, abdominal pain, dysuria, diarrhea constipation. Does endorse increased urination. Allergies Allergy/AdvReac Type Severity Reaction Status Date / Time No Known Allergies Allergy Verified 10/21/23 17:01 Home Medications Medication Instructions Recorded Confirmed Type losartan 100 mg tablet 100 mg PO QAM 07/04/23 10/21/23 History amlodipine 10 mg tablet 5 mg PO DAILY 10/21/23 10/21/23 History clopidogrel 75 mg tablet (Plavix) 75 mg PO QAM 10/21/23 10/21/23 History Past Med/Surg History Problem List (Updated 10/21/23 @ 16:23 by Fili Pathak MD) Embolic stroke involving cerebellar artery CKD (chronic kidney disease) stage 3, GFR 30-59 ml/min Tobacco use disorder Stroke with cerebral ischemia AAA (abdominal aortic aneurysm) Hypertension (Acute) Vision changes (Acute) Dizziness (Acute) Medical History (Updated 10/21/23 @ 16:23 by Fili Pathak MD) CVA (cerebral vascular accident) Hepatitis C virus infection cured after antiviral drug therapy Chronic low back pain Surgical History Hx of colonoscopy History of lumbar laminectomy Family History Father Stroke Brother Stroke Social History Smoking Status: Current every day smoker Tobacco Type: Cigarettes Age Started Using Tobacco: 11; Cigarettes Per Day: 1-2 packs per day; Second Hand Exposure: No; Do You Dip or Chew Tobacco: No; Tobacco Cessation Education Requested by Patient: Yes Hx Alcohol Use: No Hx Substance Use: No Preferred Language: Cantonese Central African Communication Ability: Effective School Age Lead Teacher Required: No Beliefs That Will Affect Care: None Current Living Situation: Spouse Other Information That Helps Us Care for You: No Feels Safe at Home: Yes Safety Concerns: Feels Safe At This Time Assistive Devices: None Review of Systems Review of Systems: At least ten systems reviewed and negative except as noted in the HPI. Physical Exam Physical Exam: General Appearance: WD/WN, vitals as above, NAD, sitting up in bed, pleasant, conversing easily Head: normocephalic, atraumatic Eyes: normal inspection, PERRL, conjunctivae normal, anicteric sclerae ENT: external ear and nose normal, oropharynx normal Neck: normal visual inspection, trachea midline, no thyromegaly Respiratory: normal respiratory effort, lungs clear to auscultation, no wheeze, rales, rhonchi. No accessory muscle use Cardiovascular: regular rate, rhythm, no murmur, normal peripheral pulses, no BLE edema. Vessels: no JVD Chest: normal inspection of chest Abdomen/GI: normal bowel sounds, soft, nontender, no hepatosplenomegaly Extremities/Musculoskeletal: no cyanosis or clubbing, extremities motor strength 5/5 Neurologic: PERRL, EOMI, accommodation nl, no face palsy, no dysarthria, CN's II-XI intact bilaterally and moves all extremities Psychiatric: A+Ox3, euthymic affect Skin: no rashes, normal color, warm/dry Results & Data Results & Data Vital Signs (Past 12 Hours) Vital Signs Temp Pulse Resp BP Pulse Ox O2 Del Method 10/21/23 12:18 65 10/21/23 12:01 Room Air 10/21/23 11:38 36.2 C L 72 20 158/82 H 97 Room Air Laboratory Results Short CBC 10/21/23 Range/Units 12:10 WBC 5.61 (4.8-10.8) K/ul Hgb 14.4 (14.0-18.0) g/dl Hct 42.8 (42.0-52.0) % Plt Count 174 (130-400) K/uL BMP 10/21/23 12:10 Sodium 136 Potassium 3.7 Chloride 106 Carbon Dioxide 22 BUN 21 Creatinine 1.28 Glucose 141 H Calcium 9.0 Code Status & VTE Plan VTE Prophylaxis Plan VTE Prophylaxis will be ordered: Yes Supervising Physician Co-Signing Physician Notes Attending addendum: The patient was seen and examined in telemetry unit in the presence of the transferred He has been feeling much better and denies any significant symptoms He was sent in from his doctor's office with abnormal MRI Has been evaluated by neurologist from [place] does not have any new neurological symptoms during my examination On examination Sitting at the edge of the bed without any acute distress Remains hemodynamically stable Alert awake and oriented x 3, no visual or speech problem, no numbness or tingling in the extremities and no weakness involving the side of the body His imaging studies and labs and medications reviewed Agree with assessment plan as outlined above by Sylvia Cortes PA-C which was formulated together by me and the PA Dr. Crystal Caruso
[2023-10-21] MEDS ORDERED: ONDANSETRON INJ 2 MG/ML 2 ML VIAL IV PRN (14:27)
[2023-10-21] MEDS ORDERED: PHARMACIST DISCHARGE MED REC CONSULT PRN (14:27)
[2023-10-21] MEDS ORDERED: ACETAMINOPHEN 325 MG TAB PO PRN (14:27)
[2023-10-21] MEDS ORDERED: POLYETHYLENE (MIRALAX) 17 GM PACK PO PRN (14:27)
[2023-10-21] MEDS: HEPARIN SOD 5,000 UNIT/0.5 ML VIAL SQ SCH (15:32)
[2023-10-21] MEDS: NICOTINE 21 MG/24 HR TDSY TD SCH (16:02)
--- NOTE | 2023-10-21 16:24 | Neurology Consultation ---
Date of Consultation October 21, 2023 Assessment & Plan (1) Embolic stroke involving cerebellar artery: 68-year-old male patient with PMH of chronic kidney disease stage III, tobacco use disorder, abdominal aortic aneurysm, HTN, who had suffered an embolic appearing posterior circulation stroke in June 2023. MRI of the brain shows a punctate infarct that is embolic appearing of the left cerebellum. Plan CTA done in June reviewed and shows scattered atherosclerotic disease, aortic arch atheroma. Only taking Plavix without a statin due to retro-orbital pain. Is not taking aspirin due to stomach pain however he takes ibuprofen. Reviewed PMH which is consistent with chronic kidney disease, consider changing ibuprofen to event medication. Is not taking any statins due to retro-orbital pain consider trying pravastatin low-dose given aortic arch atheroma Continue Plavix 75 mg daily for stroke prevention (the patient is reluctant with anticoagulants) reports bruising with Plavix. Discussed with the patient the importance of obtaining a Zio patch to rule out atrial fibrillation and to follow-up with cardiology. Follow-up with neurology as outpatient Telehealth Consultation Telehealth Information Telehealth Information: I performed this visit using a real-time telehealth connection between my location and the patients location ([facility]). After connecting through interactive tele-video, patient was identified by name and date of and/or wristband check.Patient (or authorized healthcare patient account representative) was informed that this was a telemedicine visit and it was being conducted confidentially over secure lines. My office door was closed and no one else was present in the room with me.Patient (or authorized healthcare patient account representative) provided consent to proceed with the visit, expressed an understanding of privacy and security of the telemedicine visit, and gave permission to have a hospital patient account representative in the room in order to assist with the visit and to conduct portions of the visit, as needed. I informed the patient (or authorized healthcare patient account representative) that I reviewed their record and presented the opportunity for them to ask any questions regarding the visit today. The patient agreed to participate. History of Present Illness Reason for Consultation: stroke on MRI Requesting Physician: Tyshawn Caruso MD Attending Physician: Tyshwan Caruso MD History of Present Illness 68-year-old male patient with PMH of chronic kidney disease stage III, tobacco use disorder, abdominal aortic aneurysm, HTN, who had suffered an embolic appearing posterior circulation stroke in June 2023. The patient reportedly has not been taking aspirin and Plavix. He has only been taking aspirin because he uses ibuprofen regularly for back pain. Aspirin has been hurting his stomach. He presented to the hospital after being sent by his PCP for MRI finding of a small punctate left cerebellar stroke. He denies any neurological symptoms he reports only feeling lightheaded, he denies any double vision denies any slurred speech, denies any difficulty with balance. He was noted to be hard of hearing. He reports bruising from the Plavix. He did not wear the heart monitor because he did not see a need for it. He reports he has been urinating more because of new blood pressure medications changes. Allergies Allergy/AdvReac Type Severity Reaction Status Date / Time NONE Allergy Unknown Uncoded 11/29/02 05:57 Home Medications Medication Instructions Recorded Confirmed Type losartan 100 mg tablet 100 mg PO QAM 07/04/23 10/21/23 History amlodipine 10 mg tablet 5 mg PO DAILY 10/21/23 10/21/23 History clopidogrel 75 mg tablet (Plavix) 75 mg PO QAM 10/21/23 10/21/23 History Patient History Medical History (Updated 10/21/23 @ 16:23 by Fili Pathak MD) CVA (cerebral vascular accident) Hepatitis C virus infection cured after antiviral drug therapy Chronic low back pain Surgical History Hx of colonoscopy History of lumbar laminectomy Family History Father Stroke Brother Stroke Social History Smoking Status: Current every day smoker Tobacco Type: Cigarettes Age Started Using Tobacco: 11; Cigarettes Per Day: 1-2 packs per day; Second Hand Exposure: No; Do You Dip or Chew Tobacco: No; Tobacco Cessation Education Requested by Patient: Yes Hx Alcohol Use: No Hx Substance Use: No Preferred Language: Cantonese Czech Communication Ability: Effective Pre K Teacher Required: No Beliefs That Will Affect Care: None Current Living Situation: Spouse Other Information That Helps Us Care for You: No Feels Safe at Home: Yes Safety Concerns: Feels Safe At This Time Assistive Devices: None Review of Systems Constitutional: Patient denies weight loss, fever, chills, and night sweats Eyes: Patient denies change in vision, tearing, pain, and redness ENT: Patient denies pain, bleeding, rhinorrhea, and dysphagia Cardiovascular: Patient denies chest pain, palpitation, dyspnea at rest, and dyspnea with exertion Respiratory: Patient denies shortness of breath, cough, wheezing, and productive cough GI: Patient denies reflux, pain, constipation, and diarrhea Skin: Patient denies rash, dryness, and itching Allergies/Immune System: Patient denies rhinorrhea, seasonal allergies, reaction to current MEDS, and joint swelling Endocrine: Patient denies weight loss, weight gain, temperature intolerance, and excessive thirst Neurological: All negative unless mentioned in the HPI Physical Exam General Constitutional: Appearance normally developed Head and face: normocephalic and atraumatic Eyes: no ptosis, no anisocoria, and no dysconjugate gaze Respiratory: normal effort Cardiovascular: regular rhythm and regular rate Abdomen: non distended Skin: no rashes, lesions, or ulcers noted Psychiatric: normal judgement and insight, normal mood, and normal affect NEUROLOGIC EXAMINATION: Mental Status:alert, oriented to time, place, person, normal recent memory, normal remote memory, normal attention span, normal concentration, normal language and normal fund of knowledge Cranial Nerves: CN 2 - no visual defect on confrontation and pupils round, equal, reactive to light CN 3, 4, 6 - extra-ocular movements intact and no nystagmus CN 5 - facial sensation intact CN 7 - no facial asymmetry CN 8 - intact hearing CN 9, 10 - palate symmetric, normal gag CN 11 - good shoulder shrug CN 12 - tongue midline MOTOR: Strength was at least antigravity throughout, Pronator drift was absent and There were no abnormal movements SENSATION: intact and symmetric to pinprick, light touch, vibration and joint position GAIT: stable, no ataxia and can perform tandem walking COORDINATION: no ataxia with finger to nose testing and heel to stroud testing REFLEXES: cannot assess over telemedicine NIH Stroke Scale: 1a. Level of Consciousness: alert = 0 1b. LOC Questions: (month, age): both correct = 0 1c. LOC Commands (open and close eyes, make fist and let go using non-paretic hand): obeys both correctly = 0 2. Best Gaze (eyes open and patient follows examiner's finger or face): normal = 0 3. Visual (visual threat or finger counting in each quadrant): no loss = 0 4. Facial Palsy (show teeth, raise eye brows and squeeze eyes shut, or grimace symmetry in a comatose patient): normal = 0 5a. Motor Arm (extend arm (palms down) to 90 degrees and score drift/movement (10 seconds) - Left: no drift = 0 5b. Motor Arm: (extend arm (palms down) to 90 degrees and score drift/movement (10 seconds) - Right: no drift = 0 6a. Motor Leg (elevate leg 30 degrees and score drift/ movement (5 seconds) - Left: no drift = 0 6b. Motor Leg (elevate leg 30 degrees and score drift/ movement (5 seconds) - Right: no drift = 0 7. Limb Ataxia (finger to nose, heel down stroud): absent = 0 8. Sensory (pin prick to face, arm, trunk and leg, compare side to side): normal = 0 9. Best Language: no aphasia = 0 10. Dysarthria (evaluate speech clarity by patient repeating listed words): normal articulation = 0 11. Extinction and Inattention: no neglect = 0 Total: 0 Results & Data Vital Signs (Past 12 Hours) Vital Signs Temp Pulse Pulse Resp BP BP Pulse Ox 10/21/23 16:01 36.5 C 63 18 163/83 H 96 10/21/23 15:29 115/71 10/21/23 15:06 57 L 10/21/23 14:26 36.4 C L 51 L 18 124/63 96 10/21/23 14:04 68 149/91 H 98 10/21/23 13:00 60 17 98 10/21/23 12:30 65 18 96 10/21/23 12:18 65 10/21/23 12:01 10/21/23 11:38 36.2 C L 72 20 158/82 H 97 O2 Del Method 10/21/23 16:01 Room Air 10/21/23 15:29 10/21/23 15:06 Room Air 10/21/23 14:26 Room Air 10/21/23 14:04 Room Air 10/21/23 13:00 Room Air 10/21/23 12:30 Room Air 10/21/23 12:18 10/21/23 12:01 Room Air 10/21/23 11:38 Room Air Laboratory Results Laboratory Results - last 24 hr 10/21/23 12:10 WBC 5.61 RBC 4.82 Hgb 14.4 Hct 42.8 MCV 88.8 MCH 29.9 MCHC 33.6 RDW Std Deviation 46.4 H RDW Coeff of Tova 14.4 Plt Count 174 MPV 11.4 Immature Gran % (Auto) 0.4 Neut % (Auto) 70.5 Lymph % (Auto) 14.1 [place] % (Auto) 8.2 Eos % (Auto) 5.9 Baso % (Auto) 0.9 Neut # (Auto) 3.96 Lymph # (Auto) 0.79 L [place] # (Auto) 0.46 Eos # (Auto) 0.33 Baso # (Auto) 0.05 Immature Gran # (Auto) 0.02 PT 11.9 INR 1.1 APTT 28 PTT Ratio 1.0 Sodium 136 Potassium 3.7 Chloride 106 Carbon Dioxide 22 Anion Gap 8 BUN 21 Creatinine 1.28 Est Cr Clr Drug Dosing 47.8 Est GFR ( Amer) 65.7 Est GFR (Non-Af Amer) 56.7 BUN/Creatinine Ratio 16.4 Glucose 141 H Calcium 9.0 Diagnostic Findings MRI Brain 10/19/2024: IMPRESSION 1. Subacute 6 mm infarct of the left superolateral cerebellar hemisphere, estimated age less than 3 days. No hemorrhagic transformation. 2. Mildly extensive scattered foci of T2 hyperintensity in the cerebral white matter compatible with chronic small vessel ischemic change. Duplex carotids:07/26/2023: Impression: Right carotid artery duplex examination indicates evidence of less than 50% stenosis of the internal carotid artery. Left carotid artery duplex examination indicates evidence of less than 50% stenosis of the internal carotid artery. Echocardiogram done 07/04/2023 shows, EF 60-65%. Mild concentric left ventricular hypertrophy, left atrial size is normal, right atrial size is normal, Chiari network is noted, no interatrial shunt Medications Administered Home Medications Medication Instructions Recorded Confirmed Last Taken losartan 100 mg tablet 100 mg PO QAM 07/04/23 10/21/23 10/21/23 amlodipine 10 mg tablet 5 mg PO DAILY 10/21/23 10/21/23 Unknown clopidogrel 75 mg tablet (Plavix) 75 mg PO QAM 10/21/23 10/21/23 10/21/23 Active Medications Generic Name Dose Route Start Last Admin Trade Name Freq PRN Reason Stop Dose Admin Heparin Sodium (Porcine) 5,000 units 10/21/23 14:45 10/21/23 15:32 Heparin Sod 5,000 Unit/0.5 Ml Vial SQ 11/20/23 14:44 5,000 units Q8 JAYLYN Administration Nicotine 1 patch 10/21/23 14:00 10/21/23 16:02 Nicotine 21 Mg/24 Hr Tdsy TD 11/20/23 13:59 1 patch QAM JAYLYN Administration
--- NOTE | 2023-10-21 16:26 | CT Scan Report ---
HEAD CT NONCONTRAST CT DOSE: 547.75 mGy.cm HISTORY: stroke on out pt image, eval for bleed TECHNIQUE: Multiaxial CT images of the head were performed without the use of intravenous contrast. A utomated exposure control was utilized for this study. A dose lowering technique was utilized adheri ng to the principles of ALARA. Comparison: Head CT 09/01/2023. Findings: The paranasal sinuses and mastoid air cells are clear. The calvarium and skull base are int act. The ventricles and sulci are within normal limits. There is no mass, hematoma, midline shift, or acute infarct. Periventricular white matter hypodensity remains unchanged and favors microvascular i schemic change. Impression: No significant change compared to the prior study. No acute intracranial abnormality. ACT 112: Negative or not required by law. Electronically signed by: Bryan Townsend M.D. 10/21/2023 4:23 PM
[2023-10-21] MEDS: CLOPIDOGREL BISULFATE 75 MG TAB PO SCH (16:57)
[2023-10-21] MEDS: PRAVASTATIN SOD 10 MG TAB PO SCH (17:25)
[2023-10-21] MEDS: amLODIPine BESYLATE 5 MG TAB PO ONE (17:25)
--- OUTSIDE RECORDS SUMMARY | 2023-10-21 22:41 | External Medical Summary | Summary of Care ---
Author Name Unknown Organization [facility] Address [address] [facility] [place] [address] Phone [phone] Care Team Providers Care Sales Professional Name Role Phone Unavailable Primary Care Provider Unavailabl e Reason for Visit * Reason Onset Date Comments Referral Requested by Specialist 09/28/2023 Encounter Details Date Type Department Care Team (Late st Contact Info) Description 09/28/2023 Telephone Cardiology, [facility] [address] [place] [address] Amanuel Shahid, [address] [place] [id number] Referral Requested by Specialist Allergies No known active allergiesdocumented as of this encounter (statuses as of 10/02/2023) Medications Medication Sig Dispensed Refills Start Date End Date Status Clopidogrel Bisulfate 75 MG Oral Tablet (Plavix) Take 1 Tablet by mouth every evening. 0 09/05/2023 Active amLODIPine Besylate 10 MG Oral Tablet (Norvasc) Take 0.5 Tablets by mouth every evening. 0 09/18/2023 Active Losartan Potassium 100 MG Oral Tablet (Cozaar)Indications :Stage 3a chronic kidney disease (HCC),Hypertensive kidney disease with stage 3a chronic kidney disease (HCC),Primary hypertension Take 1 tablet by mouth once daily 90 Tablet 1 03/23/2023 09/29/2023 Discontinued (Refill) documented as of this encounter (statuses as of 10/02/2023) Active Problems Problem Noted Date Diagnosed Date History of cerebrovascular accident (CVA) due to embolism 08/03/2023 Overview: historical Tobacco dependence 08/03/2023 Hypertensive kidney disease with stage 3a chronic kidney disease 02/09/2022 Primary hypertension 06/24/2021 Stage 3a chronic kidney disease 06/21/2021 Overview: EGFR 55 Hepatitis C virus infection cured after antiviral drug therapy 04/17/2020 Overview: HCV treated; SVR confirmed 04/15/2020 Testicular hypofunction 11/23/2006 Overview: test 6.4, free test 4.7 ADVANCE DIRECTIVE INFORMATION 05/17/2005 Overview: Yes, Patient instructed to provide copy of advance directive for provider to review and to be scanned into Electronic Medical Record Chronic low back pain with sciatica Overview: Acute. ALCOHOL ABUSE-IN REMISS documented as of this encounter (statuses as of 10/02/2023) Resolved Problems Problem Noted Date Diagnosed Date Resolved Date Other abnormal glucose 01/11/201012/03 Overview: Glucose 180 Acute. Elevated C-reactive protein (CRP) 11/23/2006 12/04/2019 Overview: CRP 6.96 Acute. Hemorrhoids, external without complications 2002 12/04/2019 Overview: Acute. Polyneuropathy in other dise ases classified elsewhere 02/01/2001 02/21/2022 ADHESIVE ARACHNOIDITIS 12/03 Overview: Acute. DENTURES 12/04/2019 Overview: Historical. documented as of this encounter (statuses as of 10/02/2023) Immunizations Name Administration Dates Next Due HEP A - Hepatitis A (Adult > 18 yrs) 04/28/2020 HepA Inact/HepB Recomb>=18yrs old 10/29/2019 Hepatitis B, 20+ yrs 04/28/2020,12/02/201903/04 Pneumococcal Polysaccharide PPV23 (Pneumovax) 08/13/2008 Seasonal Influenza, Split, I IV3, With Preserve, Inj 2011(Deferred: Patient Refused),05/17/2007,05/15/2006,2004 TDAP (age 10 and older)(Boostrix) 12/17/2019 TDAP (age 11 and older)(Adacel) 08/16/2007 documented as of this encounter Social History Tobacco Use Types Packs/Day Years Used Date Smoking Tobacco: Every Day Cigarettes 2 55.5 Started: 1969 Smokeless Tobacco: Never Comments:age 18 Alcohol Use Standard Drinks/Week Comments No 0 (1 standard drink = 0.6 oz pure alcohol) has abstained now for maybe 20 yrs but was in AA PHQ-2 Answer Date Recorded PHQ-2 Score -1 02/17/2020 Hunger Vital Sign Answer Date Recorded Worried About Running Out of Food in the Last Ye ar Never true 12/17/2019 Ran Out of Food in the Last Year Never true 12/17/2019 Sex and Gender Information Value Date Recorded Sex Assigned at Not on file Gender Identity Not on file Sexual Orientation Not on file Job Start Date Occupation Industry Not on file Not on file Not on file documented as of this encounter Miscellaneous Notes * Telephone Encounter - Doris Olson OSA - 10/02/2023 9:52 AM EDT scheduled * Telephone Encounter - Doris Olson OSA - 09/28/2023 3:42 PM EDT LMOM * Telephone Encounter - Bryan Marie OSA - 09/28/2023 3:[address] Shahid placed a referral for patient to be seen by neuro thad. Please call [phone] Thank you. documented in this encounter Plan of Treatment Upcoming Encounters Date Type Department Care Team (Late st Contact Info) Description 10/02/2023 12:40 PM EDT Office Visit Neurology [facility] [address] [place] [address] Maryanne Tran PA-C [address] [place] [address] 10/30/2023 10:30 AM EDT Office Visit Cardiology, [facility] [address] [place] [address] Luke Baumann MD [address] [place] [id number] Health Maintenance Due Date Last Done Comments Cologuard 1999 Sigmoidoscopy 1999 Lung Cancer Screening 2004 Zoster Vaccines (1 of 2) 2004 Fecal Occult Blood Test 08/28/2008 08/29/2007 Pneumococcal Vaccine: 65+ Years (2 of 2 - PCV) 08/13/2009 08/13/2008 Depression Screening 12/16/2020 12/17/2019 Colonoscopy 03/23/2021 03/23/2018, 03/23/2018 Colorectal Cancer Screening 03/23/2021 COVID-19 Vaccine ( season) 2023 Albumin/Creatinine Ratio 07/12/2023 07/12/2022 CKD HGB USE SMARTSET 19594 07/12/202307/12, 11/10/2021, 06/21/2021, Additional history exists GFR 01/10/2024 07/12/2023, 02/27, 07/12/2022, Additional history exists Influenza Vaccine (FLU shot) (Season Ended) 2024 05/17/2007, 05/15/2006, 05/19/2005 CKD PHOS USE SMARTSET 20930 03/23/2024 03/23/2023, 0 07/12/2022 Lipid Panel 06/21/2024 06/21/2019, 07/27, 11/22/2006, Additional history exists DTaP,Tdap,and Td Vaccines (3 - Td or Tdap) 12/16/2029 12/17/2019, 08/16/2007 Hepatitis B Completed 04/28/2020, 10/2019, 10/29/2019 AAA Screening Completed 07/26/2023 GARDASIL-HPV IMMUNIZATION SERIES Aged Out No longer eligible based on patient's age to complete this topic MENINGOCOCCAL (MENACTRA/MENVEO) Aged Out No longer eligible based on patient's age to complete this topic documented as of this encounter Medical Devices Not on filedocumented as of this encounter Advance Directives Documents on File Type Date Recorded 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
--- OUTSIDE RECORDS SUMMARY | 2023-10-21 22:41 | External Medical Summary | Summary of Care ---
Author Name Unknown Organization [facility] Address [address] [place] [address] Phone [phone] Care Team Providers Care Upper Shaper Name Role Phone Holly Guerra PA-C Primary Care Provider [phone] Reason for Referral * Precert (Within 10 days (routine)) - Pending Review Specialty Diagnoses / Procedures Referred By Beth suarez Referred To Contact Radiology Diagnoses Cerebrovascular disease, arteriosclerotic, post-stroke Tobacco dependence Procedures MRI BRAIN W WO Maryanne Jacob PA-C [address] [place] [address] Referral ID Status Reason Start Date Expiration Date V isits Requested Visits Authorized [id number] Pending Review 10/09/2023 999 999 Reason for Visit * Reason Comments Return Neuro * Evaluate & Treat - Unlimited Visits (Within 10 days (routine)) - Authorized Specialty Diagnoses / Procedures Referred By Beth suarez Referred To Contact Neurology Diagnoses Cerebrovascular accident (CVA) due to embolism of 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 (HCC) Tobacco dependence Stage 3a chronic kidney disease (HCC) Primary hypertension Amanuel Shahid, [address] [place] [address] Referral ID Status Reason Start Date Expiration Date Visits Requested Visits Authorized [id number] Authorized Specialty Services Required 09/28/2023 999 999 Encounter Details Date Type Department Care Team (Late st Contact Info) Description 10/02/2023 12:40 PM EDT Office Visit Neurology [place] [facility] Child[place] [address] [facility] [place] [address] Maryanne Tran PA-C [address] [place] [address] Cerebrovascular disease, arteriosclerotic, post-stroke*; Tobacco dependence Allergies No known active allergiesdocumented as of this encounter (statuses as of 10/02/2023) Medications Medication Sig Dispensed Refills Start Date End Date Status Clopidogrel Bisulfate 75 MG Oral Tablet (Plavix) Take 1 Tablet by mouth every evening. 0 09/05/2023 Active amLODIPine Besylate 10 MG Oral Tablet (Norvasc) Take 0.5 Tablets by mouth every evening. 0 09/18/2023 Active Losartan Potassium 100 MG Oral Tablet (Cozaar)Indications:St age 3a chronic kidney disease (HCC),Hypertensive kidney disease with stage 3a chronic kidney disease (HCC),Primary hypertension Take 1 tablet by mouth once daily 90 Tablet 1 09/29/2023 Active documented as of this encounter (statuses as [...] I IV3, With Preserve, Inj 2011(Deferred: Patient Refused),05/17/2007,05/15/2006 TDAP (age 10 and older)(Boostrix) 12/17/2019 TDAP [...] on file documented as of this encounter Last Filed Vital Signs Vital Sign Reading Time Taken Comments Blood Pressure 108/68 10/02/2023 1:06 PM EDT Pulse 88 10/02/2023 1:06 PM EDT Temperature 36 C (96.8 F) 10/02/2023 12: 39 PM EDT Respiratory Rate 18 10/02/2023 12:3 9 PM EDT Oxygen Saturation 96% 10/02/2023 12: 39 PM EDT Inhaled Oxygen Concentration - - Weight 70.2 kg (154 lb 11.2 oz) 024 12:39 PM EDT Height - - Body Mass Index 22.2 09/06/2023 11:06 AM EDT documented in this encounter Progress Notes * Maryanne Tran PA-C - 10/02/2023 12:44 PM EDT HISTORY & PHYSICAL EXAMINATION - NEUROLOGY Name: Elfego Puente Jr. Date: 10/02/2023 Time: 12:44 PM Referring Provider: Amanuel Shahid DO Chief Complaint: Chief Complaint Patient presents with Return Neuro This is a 68 year old right handed gentleman returns today for follow up for light headed with standing. . HPI & Source of HPI The patient and spouse was the historian, and they are reliable. He was seen at [facility] 07/05/23 after presenting with blurry vision and vertigo which resolved before arrival. He has been having difficulty controlling his BP at home with very high numbers and significant fluctuations as he works with his outpatient doc to determine the best regimen for his BP. He hasnever had a stroke before but has had vertigo which felt similar. At last visit he was not taking any antiplatelet or anticoagulant and said the aspirin made him have stomach issues. He also stopped his cholesterol medication which was causing issues. Orthostatic blood pressures were done today andhe had a significant drop when standing. He is also complaining about blurred vision and had not been seen in about 2 year event though he was told he has the starts of . He is still smoking 2 ppd cig. Which is down from 3 ppd. He staes "everybody dies from something" and he really doesn't want to quit. He has no residual symptoms from the stroke but was referred backto us from cards due to the dizziness. Denies CP, SOB, abdominal pain, N, V. I have reviewed the patient's medications and allergies, past medical, surgical, social and family history, updating these as appropriate. See Histories section of the electronic medical record for adisplay of this information. Patient Active Problem List Diagnosis Code Chronic low back pain with sciatica M54.40, G89.29 ALCOHOL ABUSE-IN REMISS F10.11 ADVANCE DIRECTIVE INFORMATION Testicular hypofunction E29.1 Hepatitis C virus infection cured after antiviral drug therapy Z86.19 Primary hypertension I10 Stage 3a chronic kidney disease (HCC) N18.31 Hypertensive kidney disease with stage 3a chronic kidney disease (HCC) I12.9, N18.31 History of cerebrovascular accident (CVA) due to embolism Z86.73 Tobacco dependence F17.200 Family History Problem Relation Age of Onset Diabetes Mother Thyroid cancer Mother Cancer Mother Diabetes Aunt (Unspecified) Diabetes Uncle (Unspecified) Other (old age) Father Other (mini stroke) Father Medications: Are you taking your medications? yes Current Outpatient Medications Medication Sig Dispense Refill Clopidogrel Bisulfate 75 MG Oral Tablet (Plavix) Take 1 Tablet by mouth every evening. amLODIPine Besylate 10 MG Oral Tablet (Norvasc) Take 0.5 Tablets by mouth every evening. Losartan Potassium 100 MG Oral Tablet (Cozaar) Take 1 tablet by mouth once daily 90 Tablet 1 No current facility-administered medications for this visit. Review of patient's allergies indicates: No Known Allergies Review of Systems: A total number of 10 systems were reviewed pertinent negative and positives not addressed in HPI are listed in the following review. Physical Exam: Constitutional: BP 108/68 (BP Site: Right Arm, BP Position: Standing, BP Cuff Size: Regular) | Pulse 88 | Temp 36 C (96.8 F) (Tympanic) | Resp 18 | Wt 70.2 kg (154 lb 11.2 oz) | SpO2 96% | BMI 22.20 kg/m | BSA 1.86 m , appearance nourished and healthy Ears, Nose, Mouth and Throat: mucous membranes moist, no injection and skin normal, eyes normal Cardiovascular: normal S-1 and S-2 and regular rate and rhythm Respiratory: course rales Musculoskeletal: no peripheral edema Skin: normal and intact Eyes: extraocular muscles intact (EOMI) and pupils equal, round and reactive to light (PERRL) NEUROLOGIC EXAMINATION: Mental status: Alert and interactive Oriented to full date and location Oriented to person Speech fluent with no evidence of aphasia Cranial Nerves Normal findings for Cranial Nerves II - XII Reflexes: Deep tendon reflexes were symmetrical and graded 2/5. Plantar responses were flexor. Sensory: no sensory deficits Coordination: rapid alternating movements are intact: Bilateral, on [id number], and Romberg absent Gait/Stance: Posture normal. Gait normal: with steady with steps, base, arm swing, and tandem gait. Motor: Negative for pronator drift of out stretched arms with eyes closed. Strength: Normal - 5/5 all extremities LABORATORY: Recent labs reviewed Review of prior Studies: No recent imaging available. Impression: Elfego Puente Jr. is a 68 year old gentleman with a history of CVA. His neurologic examination today reveals orthostic blood pressure. The history and examination are suggestive of diagnosis/problem list. Testing and Referrals ordered: none ICD-10-CM 1. Cerebrovascular disease, arteriosclerotic, post-stroke I67.2 Z86.73 2. Tobacco dependence F17.200 Return in 4 months or sooner if needed Continue plavix 75 mg (1 tab) daily Optimize HTN HLD LDL <70 Smoking cessations strongly urged Healthy diet and exercise Was orthostatic today from sitting to standing MRI brain for further stroke evaluation May need repeat CTA head /neck Needs ophthalmology has been several years and MD may have been diagnosed PCP for medical management Call with questions concerns Medical Decision Making (determined by lowest of 2 of 3 elements): The medical decision making element of the number and complexity of problems addressed included at least 1 or more chronic illnesses with exacerbation, progression, or side effects of treatment (level 4). The medical decision making element of risk of complications, morbidity, and mortality of patient management is moderate (level 4) due to prescription drug management (moderate risk). The medical decision making element of the amount and complexity of data reviewed and analyzed included an independent interpretation of a test (level 4 at least). When 2 of 3 reach level 4, then this element is considered extensive (level 5). I personally spent a total of 30 minutes. This time was for a new office or established visit and was on the same calendar day. Education / Consultation - Topics covered as I spent 20 minutes, which is greater than 50% of this visit, counseling the patient on: Diagnostic Results Prognosis Importance of compliance with chosen treatment options Risk factor reductions Patient and family education Consulted with physician: Merrill Rai MD was available for direct supervision. Copy of note sent toPCP and Referring Provider. Total time of visit: 30 minutes. Maryanne Tran PA-C Neurology [address] [place] [address] 10/02/2023 12:44 PM documented in this encounter Nursing Notes * Araseli Patricia LPN - 10/02/2023 12:39 PM EDT Chief Complaint Patient presents with Return Neuro documented in this encounter Plan of Treatment Upcoming Encounters Date Type Department Care Team (Late st Contact Info) Description 10/20/2023 11:15 AM EDT Imaging Radiology [address] [address] 10/30/2023 10:30 AM EDT Office Visit Cardiology, [address] [place] [address] Luke Baumann MD [address] [facility] [place] [address] 01/09/2024 3:20 PM EDT Office Visit Neurology [facility] [address] [place] [address] Maryanne Tran PA-C [address] [place] [address] [place] [id number] Scheduled Orders Name Type Priority Associated Diagnoses Orde r Schedule MRI BRAIN W WO CONTRAST Medical Imaging Routine Cerebrovascular disease, arteriosclerotic, post-stroke Tobacco dependence Expected: 10/09/2023, Expires: 11/01/2024 Health Maintenance Due Date Last Done Comments Cologuard 1999 Sigmoidoscopy 1999 Lung Cancer Screening 2004 Zoster Vaccines (1 of 2) 2004 Fecal Occult Blood Test 08/28/2008 08/29/2007 Pneumococcal Vaccine: 65+ Years (2 of 2 - PCV) 08/13/2009 08/13/2008 Depression Screening 12/16/2020 12/17/2019 Colonoscopy 03/23/2021 03/23/2018, 03/23/2018 Colorectal Cancer Screening 03/23/2021 COVID-19 Vaccine ( season) 2023 Albumin/Creatinine Ratio 07/12/2023 07/12/2022 CKD HGB USE SMARTSET 45398 07/12/202307/12, 11/10/2021, 06/21/2021, Additional history exists GFR 01/10/2024 07/12/2023, 02/27, 07/12/2022, Additional history exists Influenza Vaccine (FLU shot) (Season Ended) 2024 05/17/2007, 05/15/2006, 05/19/2005 CKD PHOS USE SMARTSET [id number] 03/23/2024 03/23/2023, 0 07/12/2022 Lipid Panel 06/21/2024 06/21/2019, 07/27, 11/22/2006, Additional history exists DTaP,Tdap,and Td Vaccines (3 - Td or Tdap) 12/16/2029 12/17/2019, 08/16/2007 Hepatitis B Completed 04/28/2020, 070 10/2019, 10/29/2019 AAA Screening Completed 07/26/2023 GARDASIL-HPV IMMUNIZATION SERIES Aged Out No longer eligible based on patient's age to complete this topic MENINGOCOCCAL (MENACTRA/MENVEO) Aged Out No longer eligible based on patient's age to complete this topic documented as of this encounter Medical Devices Not on filedocumented as of this encounter Visit Diagnoses Diagnosis Cerebrovascular disease, arteriosclerotic, post-stroke- Primary Cerebral atherosclerosis Tobacco dependence Tobacco use disorder documented in this encounter Advance Directives Documents on File Type Date Recorded 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
--- OUTSIDE RECORDS SUMMARY | 2023-10-21 22:42 | External Medical Summary | Summary of Care ---
Author Name Unknown Organization [facility] Address [address] [facility] [place] [address] Phone [phone] Care Team Providers Care Earth Auger Operator Name Role Phone Unavailable Primary Care Provider Unavailabl e Reason for Visit * Reason Comments Emergency Department Follow-Up Encounter Details Date Type Department Care Team (Latest Contact Info) Description 09/06/2023 11:20 AM EDT Office Visit Family Medicine [address] [place] [phone] Holly Guerra PA-C [address] [place] [address] [place] [phone] Primary hypertension*; Stage 3a chronic kidney disease (HCC); History of cerebrovascular accident (CVA) due to embolism Allergies No known active allergiesdocumented as of this encounter (statuses as of 09/06/2023) Medications Medication Sig Dispensed Refills Start Date End Date Status Losartan Potassium 100 MG Oral Tablet (Cozaar)Indications:St age 3a chronic kidney disease (HCC),Hypertensive kidney disease with stage 3a chronic kidney disease (HCC),Primary hypertension Take 1 tablet by mouth once daily 90 Tablet 1 03/23/2023 Active amLODIPine Besylate 10 MG Oral Tablet (Norvasc) Take 1 Tablet by mouth in the morning. 90 Tablet 1 07/31/2023 Active Atorvastatin Calcium 40 MG Oral Tablet (Lipitor) Take 1 Tablet by mouth in the morning. 90 Tablet 1 07/31/2023 Active Chlorthalidone 25 MG Oral Tablet (Hygroton) One tablet at bedtime 0 09/05/2023 Active Clopidogrel Bisulfate 75 MG Oral Tablet (Plavix) Take 1 Tablet by mouth in the morning. 0 09/05/2023 Active documented as of this encounter (statuses as of 09/06/2023) Active Problems Problem Noted Date Diagnosed Date [...] as of this encounter (statuses as of 09/06/2023) Resolved Problems Problem Noted Date Diagnosed Date Resolved Date Other abnormal glucose 01/11/201012/03 Overview: Glucose 180 Acute. Elevated C-reactive protein (CRP) 11/23/2006 12/04/2019 Overview: CRP 6.96 Acute. Hemorrhoids, external without complications 2002 12/04/2019 Overview: Acute. Polyneuropathy in other dise ases classified elsewhere 02/01/2001 02/21/2022 ADHESIVE ARACHNOIDITIS 12/03 Overview: Acute. DENTURES 12/04/2019 Overview: Historical. documented as of this encounter (statuses as of 09/06/2023) Immunizations Name Administration Dates Next Due HEP [...] Date Smoking Tobacco: Every Day Cigarettes 2 55.4 Started: 1969 Smokeless Tobacco: Never Comments:age 18 [...] Sign Reading Time Taken Comments Blood Pressure 122/74 09/06/2023 11:06 AM EDT Pulse 90 09/06/2023 11:06 AM EDT Temperature 36.2 C (97.1 F) 09/06/2023 11:06 AM E DT Respiratory Rate - - Oxygen Saturation 96% 09/06/2023 11:06 AM EDT Inhaled Oxygen Concentration - - Weight 69.9 kg (154 lb) 09/06/2023 11:06 AM EDT Height 177.8 cm (5' 10") 09/06/2023 11:06 AM EDT Body Mass Index 22.1 09/06/2023 11:06 AM EDT documented in this encounter Progress Notes * Holly Guerra PA-C - 09/06/2023 11:05 AM EDT Nursing Notes: Telly Gina Garcia, NATASHA 09/06/23 1106 Sign at exiting of workspace [facility] ER follow up Meds are too much all at once BP bottoms out. Pt here today for [facility] ER FU. He left the office, here, and went to ER with stroke like sx. Labs were ok, EKG ok, CT of head ok. Troponin was slightly elevated but stable 2 hours later. Per ER note, pt was adamant about not being admitted. ER doc explained concern for stroke like sx and cardiac injury. Pt did not want to stay. His HCTZ was stopped and pt was started on chlorthalidone. BP ok today. His cuff is reading higher. He feels like his BP is dropping. Getting low readings on his cuff at home. Pt is feeling good today. Pt denies chest pain, SOB, dizziness, lightheadedness, syncope, unilateral weakness, slurred speech, facial drooping. Review of patient's allergies indicates: No Known Allergies Current Outpatient Medications Medication Sig Dispense Refill Losartan Potassium 100 MG Oral Tablet (Cozaar) Take 1 tablet by mouth once daily 90 Tablet 1 amLODIPine Besylate 10 MG Oral Tablet (Norvasc) Take 1 Tablet by mouth in the morning. 90 Tablet 1 Atorvastatin Calcium 40 MG Oral Tablet (Lipitor) Take 1 Tablet by mouth in the morning. 90 Tablet 1 Chlorthalidone 25 MG Oral Tablet (Hygroton) One tablet at bedtime Clopidogrel Bisulfate 75 MG Oral Tablet (Plavix) Take 1 Tablet by mouth in the morning. No current facility-administered medications for this visit. 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 11/23/2006 test 6.4, free test 4.7 Social History Socioeconomic History Marital status: Spouse name: Not on file Number of children: Not on file Years of education: Not on file Highest education level: Not on file Occupational History 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, 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 Tobacco Use Smoking status: Every Day Current packs/day: 2.00 Average packs/day: 2.0 packs/day for 55.4 years (110.8 ttl pk-yrs) Types: Cigarettes Start date: 1969 Smokeless tobacco: Never Tobacco comments: age 18 Vaping Use Vaping Use: Never used Substance and Sexual Activity Alcohol use: No Comment: has abstained now for maybe 20 yrs but was in AA Drug use: No Sexual activity: Not on file Other Topics Concern Not on file Social History Narrative Not on file Social Determinants of Health Financial Resource Strain: Not on file Food Insecurity: No Food Insecurity (12/17/2019) Hunger Vital Sign Worried About Running Out of Food in the Last Year: Never true Ran Out of Food in the Last Year: Never true Transportation Needs: Not on file Physical Activity: Not on file Stress: Not on file Social Connections: Not on file Intimate Partner Violence: Not on file Housing Stability: Not on file O:Blood pressure 122/74, pulse 90, temperature 36.2 C (97.1 F), temperature source Tympanic, height 1.778 m (5' 10"), weight 69.9 kg (154 lb), SpO2 96%. GENERAL: alert, healthy, and no distress HEART: regular rate & rhythm, no murmur, and no gallops LUNGS: chest symmetric with normal AP diameter, no chest deformities noted, no chest wall tenderness, lungs clear to auscultation A:Primary hypertension (Primary) Stage 3a chronic kidney disease (HCC) History of cerebrovascular accident (CVA) due to embolism BP ok today. Can stop chlorthalidone. Continue losartan and amlodipine. Any questions/problems, please call. Continue to monitor BP. Any questions/problems, please call. If anything changes, worsens,develops new sx, please call JACQUELINE. Follow Up: Return if symptoms worsen or fail to improve. Holly Guerra PA-C documented in this encounter Nursing Notes * Gina Varner LPN - 09/06/2023 11:05 AM EDT [facility] ER follow up Meds are too much all at once BP bottoms out. BP machine from home checked, not accurate. 142/92 Here in clinic 122/74 & 126/76 after rechecking documented in this encounter Plan of Treatment Health Maintenance Due Date Last Done Comments LUNG CANCER SCREENING - USE SMARTSET 40362 2004 Zoster Vaccines (1 of 2) 2004 Pneumococcal Vaccine: 65+ Years (2 of 2 - PCV) 08/13/2009 08/13/2008 Depression Screening 12/16/2020 12/17/2019 COLONOSCOPY-EVERY 3 YRS AGES 18-100 03/23/2021 03/23/2018, 03/23/2018 COVID-19 Vaccine ( - 2022- season) 2023 Albumin/Creatinine Ratio 07/12/2023 07/12/2022 CKD HGB USE SMARTSET [id number] 07/12/202307/12, 11/10/2021, 06/21/2021, Additional history exists GFR 01/10/2024 07/12/2023, 02/27, 07/12/2022, Additional history exists Influenza Vaccine (FLU shot) (Season Ended) 2024 05/17/2007, 05/15/2006, 05/19/2005 CKD PHOS USE SMARTSET 83308 03/23/2024 03/23/2023, 0 07/12/2022 Lipid Panel 06/21/2024 06/21/2019, 07/27, 11/22/2006, Additional history exists DTaP,Tdap,and Td Vaccines (3 - Td or Tdap) 12/16/2029 12/17/2019, 08/16/2007 Hepatitis B Completed 04/28/2020, 07/0 10/2019, 10/29/2019 AAA Screening Completed 07/26/2023 GARDASIL-HPV IMMUNIZATION SERIES Aged Out No longer eligible based on patient's age to complete this topic MENINGOCOCCAL (MENACTRA/MENVEO) Aged Out No longer eligible based on patient's age to complete this topic documented as of this encounter Medical Devices Not on filedocumented as of this encounter Visit Diagnoses Diagnosis Primary hypertension- Primary Unspecified essential hypertension Stage 3a chronic kidney disease (HCC) History of cerebrovascular accident (CVA) due to embolism documented in this encounter Advance Directives Documents on File Type Date Recorded Patient Form Raiser Expl anation Advance Directives and Living Will 11/04/2004 Latest Code Status on File Code Status Date Activated Date Inactivated Comments None 11/04/2004 11:54 AM 11/04/2004 11:54 AM
--- OUTSIDE RECORDS SUMMARY | 2023-10-21 22:42 | External Medical Summary | Summary of Care ---
Author Name Unknown Organization [facility] Address [address] [facility] [place] [address] Phone [phone] Care Team Providers Care Field Service Engineer Name Role Phone Unavailable Primary Care Provider Unavailabl e Reason for Visit * Reason Onset Date Comments Referral Requested by Specialist 09/28/2023 Encounter Details Date Type Department Care Team (Late st Contact Info) Description 09/28/2023 Telephone Cardiology, [facility] [address] [place] [address] Amanuel Shahid, [address] [place] [address] Referral Requested by Specialist Allergies No known active allergiesdocumented as of this encounter (statuses as of 09/28/2023) Medications Medication Sig Dispensed Refills Start Date End Date Status Losartan Potassium 100 MG Oral Tablet (Cozaar)Indications:St age 3a chronic kidney disease (HCC),Hypertensive kidney disease with stage 3a chronic kidney disease (HCC),Primary hypertension Take 1 tablet by mouth once daily 90 Tablet 1 03/23/2023 Active Clopidogrel Bisulfate 75 MG Oral Tablet (Plavix) Take 1 Tablet by mouth every evening. 0 09/05/2023 Active amLODIPine Besylate 10 MG Oral Tablet (Norvasc) Take 0.5 Tablets by mouth every evening. 0 09/18/2023 Active documented as of this encounter (statuses as of 09/28/2023) Active Problems Problem Noted Date Diagnosed Date [...] as of this encounter (statuses as of 09/28/2023) Resolved Problems Problem Noted Date Diagnosed Date Resolved Date Other abnormal glucose 01/11/201012/03 Overview: Glucose 180 Acute. Elevated C-reactive protein (CRP) 11/23/2006 12/04/2019 Overview: CRP 6.96 Acute. Hemorrhoids, external without complications 2002 12/04/2019 Overview: Acute. Polyneuropathy in other dise ases classified elsewhere 02/01/2001 02/21/2022 ADHESIVE ARACHNOIDITIS 12/03 Overview: Acute. DENTURES 12/04/2019 Overview: Historical. documented as of this encounter (statuses as of 09/28/2023) Immunizations Name Administration Dates Next Due HEP [...] PM EDT LMOM * Telephone Encounter - Brayn Marie OSA - 09/28/2023 3:[address] Shahid placed a referral for patient to be seen by neuro thad. Please call [phone] to setupan appt. Thank you. documented in this encounter Plan of Treatment Upcoming Encounters Date Type Department Care Team (Late st Contact Info) Description 10/30/2023 10:30 AM EDT Office Visit Cardiology, [address] [place] [address] Luke Baumann MD [address] [place] [address] Health Maintenance Due Date Last Done Comments Cologuard 1999 Sigmoidoscopy 1999 Lung Cancer Screening 2004 Zoster Vaccines (1 of 2) 2004 Fecal Occult Blood Test 08/28/2008 08/29/2007 Pneumococcal Vaccine: 65+ Years (2 of 2 - PCV) 08/13/2009 08/13/2008 Depression Screening 12/16/2020 12/17/2019 Colonoscopy 03/23/2021 03/23/2018, 03/23/2018 Colorectal Cancer Screening 03/23/2021 COVID-19 Vaccine ( season) 2023 Albumin/Creatinine Ratio 07/12/2023 07/12/2022 CKD HGB USE SMARTSET 00193 07/12/202307/12, 11/10/2021, 06/21/2021, Additional history exists GFR 01/10/2024 07/12/2023, 02/27, 07/12/2022, Additional history exists Influenza Vaccine (FLU shot) (Season Ended) 2024 05/17/2007, 05/15/2006, 05/19/2005 CKD PHOS USE SMARTSET [id number] 03/23/2024 03/23/2023, 0 07/12/2022 Lipid Panel 06/21/2024 [...] Documents on File Type Date Recorded Patient Maintenance Data Analyst Expl anation Advance Directives and Living Will 11/04/2004 Latest Code Status on File Code Status Date Activated Date Inactivated Comments None 11/04/2004 11:54 AM 11/04/2004 11:54 AM
--- OUTSIDE RECORDS SUMMARY | 2023-10-21 22:42 | External Medical Summary | Summary of Care ---
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 [facility] This patient already has care established with Neurology. Do not place this order. Please use Ask A Doc to expedite care. Acknowledge Is this referral being placed for insurance purposes ONLY No, patient needs appointment [facility] NEUROLOGY REFERRAL QUESTIONS Stroke Reason for Visit * Reason Comments Follow Up Encounter Details Date Type Department Care Team (Late st Contact Info) Description 09/28/2023 2:30 PM EDT Office Visit Cardiology, [facility] [address] [place] [address] Amanuel Shahid DO [address] [place] [address] Primary hypertension*; Cerebrovascular accident (CVA) due to embolism of 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 (HCC); Tobacco dependence; Stage 3a chronic kidney disease (HCC) Allergies No known active allergiesdocumented as of this encounter (statuses as of 09/28/2023) Medications Medication Sig Dispensed Refills Start Date End Date Status Losartan Potassium 100 MG Oral Tablet (Cozaar)Indications [...] by mouth every evening. 0 09/18/2023 Active Atorvastatin Calcium 40 MG Oral Tablet (Lipitor) Take 1 Tablet by mouth in the morning. 90 Tablet 1 07/31/2023 09/28/2023 Discontinued (Patient preference/d iscontinuati on) documented as of this encounter (statuses as [...] Sign Reading Time Taken Comments Blood Pressure 144/84 09/28/2023 2:23 PM EDT Pulse 84 09/28/2023 2:23 PM EDT Temperature - - Respiratory Rate 16 09/28/2023 2:23 PM EDT Oxygen Saturation - - Inhaled Oxygen Concentration - - Weight 69.9 kg (154 lb) 09/28/2023 2:23 PM EDT Height - - Body Mass Index 22.1 09/06/2023 11:06 AM EDT documented in this encounter Progress Notes * Amanuel Shahid, DO - 09/28/2023 2:55 PM EDT Cardiology Outpatient Follow-up Elfego Puente is a 68 year old male who is seen for follow-up of CVA. HPI: This is a 68-year-old male patient who is a dedicated smoker. He has a history of hypertension and was treated by his PCP. He was doing well until July of this year. He had been on medications but then discontinued them because he felt that he had blurred vision related to the medicines. He then presented to the emergency department in hypertensive crisis. He had visual changes and uncontrolled hypertension. An MRI of the brain indicated a small posterior occipital infarct and punctate lacunarinfarct in the right occipital lobe. The patient was started on antihypertensive medications, antiplatelet agents and cholesterol medications. He was doing well and I saw him in July however, since his last visit with me in July he has been having symptoms of lightheadedness, dizziness and nausea. He insists that is 1 or all of his medications. He has had an ER visit where they discontinued hishydrochlorothiazide because the patient felt that this medication was causing problems. They also discontinued his aspirin in favor of Plavix due to his symptoms of nausea and what he describes as a knot in his stomach. He has had no additional stroke-like symptoms. He does monitor his blood pressure at home and on his current medications it has been well controlled. No activity related chest pain or shortness of breath. No orthopnea or lower extremity edema. Past Medical History: Diagnosis Date Acute hepatitis [...] hypofunction 11/23/2006 test 6.4, free test 4.7 Patient Active Problem List Diagnosis Code Chronic [...] due to embolism Z86.73 Tobacco dependence F17.200 Past Surgical History: Procedure Laterality Date COLONOSCOPY, DIAGNOSTIC (RECTUM) 03/23/2018 lymphocytic colitis, adenomatous polyp, diverticulosis, fair prep, repeat 3 yrs/COLONOSCOPY FLEXIBLE PROXIMAL DIAGNOSTIC performed by Silas Michael MD at ENDOSCOPY [facility] EEG 09/09/2011 normal HOLTER COMPLETE (COMM PRAC) 08/17/2011 no ectopy or bradycardia, NSR MRI L SPINE W WO CONTRAST 06/15/2005 post laminectiomy 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 OTHER ACT 112 Signed, 10/02/2020 REMOVE LUMBAR SPINE LAMINA, 1-2 12/09/1991 L5-S1 microdiscectomy by Dr Bertrand at [place] REMOVE LUMBAR SPINE LAMINA, 1-2 07/01/1994 L4-L5 laminectomy and removal of empyema at [facility] Dr Giron REMOVE NECK SPINE DISK, SINGLE HNP Excision Family History Problem Relation Age of Onset Diabetes Mother Thyroid cancer Mother Cancer Mother Diabetes Aunt (Unspecified) Diabetes Uncle (Unspecified) Other (old age) Father Other (mini stroke) Father Social History Tobacco Use Smoking status: Every Day Current packs/day: 2.00 Average packs/day: 2.0 packs/day for 55.5 years (110.9 ttl pk-yrs) Types: Cigarettes Start date: 1969 Smokeless tobacco: Never Tobacco comments: age 18 Vaping Use Vaping Use: Never used Substance Use Topics Alcohol use: No Comment: has abstained now for maybe 20 yrs but was in AA Drug use: No Review of patient's allergies indicates: No Known Allergies Current Outpatient Medications Medication Sig Dispense Refill Losartan Potassium 100 MG Oral Tablet (Cozaar) Take 1 tablet by mouth once daily 90 Tablet 1 Clopidogrel Bisulfate 75 MG Oral Tablet (Plavix) Take 1 Tablet by mouth every evening. amLODIPine Besylate 10 MG Oral Tablet (Norvasc) Take 0.5 Tablets by mouth every evening. No current facility-administered medications for this visit. ROS: Review of Systems: See HPI for pertinent positives. All other review of systems is negative. PHYSICAL EXAMINATION BP 144/84 | Pulse 84 | Resp 16 | Wt 69.9 kg (154 lb) | BMI 22.10 kg/m | BSA 1.86 m Body mass index is 22.1 kg/m. General: no acute distress and stated age Head: normocephalic, no masses, lesions, tenderness or abnormalities Eyes: conjunctiva are pink and non-injected, sclera clear Neck: supple, no adenopathy, no bruits, normal jugular venous pulse, no hepatojugular reflux Chest: normal shape and normal respiratory effort Lungs: clear to auscultation and percussion Cardiac Exam: - regular rate & rhythm, no murmurs gallops or rubs - normal S1, normal S2 Pulses: 2(+) throughout Abdomen: abdomen soft, non-tender, no abnormal masses and no hepatosplenomegaly Musculoskeletal: no gait disturbance, no joint inflammation, no deforming arthritis Extremities: no edema and no cyanosis Neuro: grossly normal exam Laboratory Data Review: EKG today reveals a normal sinus rhythm with left ventricular hypertrophy Impression: 1. Recent occipital lobe infarcts during hypertensive crisis 2. History of hypertension 3. Dedicated smoker Plan: I am not certain why he is having his symptoms. We had a discussion regarding his medications and which may be causing his symptoms. He does have a history of a recent posterior circulation stroke and some of that may be post stroke residual. The patient wanted to stop his losartan but after his hypertensive crisis I think it would not be a good idea to stop any of his antihypertensive medications. He also wanted to stop his atorvastatin and I think at this point it would be the least detrimental. He will stop the atorvastatin and after several days if his symptoms continue then he knows it is not the atorvastatin and we can move on. His , who is with him today, indicates that the patient has a brother who has schizophrenia. He lives about 200 yds from them and Kush is his caregiver.This has been very stressful to him recently and his thinks that perhaps some of the symptoms may be related to stress. I made a referral to Neurology for an evaluation to be certain that his posterior lobe stroke is not causing the symptoms. As mentioned above he will stop the atorvastatin. Iwill see him back in about a month to monitor his progress. This chart was completed in part utilizing [email or web address] Speech Voice Recognition Software. Grammatical errors, random word insertions, prounoun errors, and incomplete sentences are an occasional consequence of this system due to software limitations, ambient noise, and hardware issues. Any formal questions or concerns about the content, text, or information contained within the body of this dictation should be directly addressed to the provider for clarification. I spent a total of 40-54 minutes (exact time 43 mins) on the date of service in preparation, delivery, and documentation of the care provided to Elfego Puente Jr. excluding any time spent in the performance of separately billed services. Amanuel Shahid DO Cardiology[address] [address] 09/28/2023 documented in this encounter Nursing Notes * Manjit Davis RN - 09/28/2023 2:21 PM EDT Examination Room: room 17 Name: Elfego Puente Jr. Date of : (1955). Reason for Visit: for follow up Interim Hospitalization(s): denies Problems/Concerns: c/o dizzines; pressure in eyes ; upset "knot" is stomach; blurred vision. He thinks it is all side effects of mediations. Chest Pain/SOB: denies [facility] Discussed: Yes [facility] is a way you can talk to your provider online through e-mail. Would you like to sign up? I can activate it for you? ALREADY ACTIVE Patient was instructed to not get up on the exam table until directed and assisted by their provider; patient is to remain seated in the chair/ wheelchair/ exam table for fall prevention and safety reasons. Patient is aware to have assistance to step down off exam table with personnel. Patient voiced full comprehension of instructions. documented in this encounter Plan of Treatment Upcoming Encounters Date Type Department Care Team (Late st Contact Info) Description 10/30/2023 10:30 AM EDT Office Visit Cardiology, [facility] [address] [facility] [place] [address] Luke Baumann MD [address] [place] [address] Scheduled Orders Name Type Priority Associated Diagnoses Orde r Schedule EKG COMPLETE (TRACING AND INTERP) EKG Routine Cerebrovascular accident (CVA) due to embolism of 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 (HCC) Tobacco dependence Stage 3a chronic kidney disease (HCC) Primary hypertension Ordered: 09/28/2023 Scheduled Referrals Name Type Priority Associated Diagnoses Orde r Schedule NEUROLOGY REFERRAL OP Referral Within 10 days (routine) Cerebrovascular accident (CVA) due to embolism of 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 (HCC) Tobacco dependence Stage 3a chronic kidney disease (HCC) Primary hypertension Ordered: 09/28/2023 Health Maintenance Due Date Last Done Comments Cologuard 1999 Sigmoidoscopy 1999 Lung Cancer Screening 2004 Zoster Vaccines (1 of 2) 2004 Fecal Occult Blood Test 08/28/2008 08/29/2007 Pneumococcal Vaccine: 65+ Years (2 of 2 - PCV) 08/13/2009 08/13/2008 Depression Screening 12/16/2020 12/17/2019 Colonoscopy 03/23/2021 03/23/2018, 03/23/2018 Colorectal Cancer Screening 03/23/2021 COVID-19 Vaccine ( season) 2023 Albumin/Creatinine Ratio 07/12/2023 07/12/2022 CKD HGB USE SMARTSET 24607 07/12/202307/12, 11/10/2021, 06/21/2021, Additional history exists GFR 01/10/2024 07/12/2023, 02/27, 07/12/2022, Additional history exists Influenza Vaccine (FLU shot) (Season Ended) 2024 05/17/2007, 05/15/2006, 05/19/2005 CKD PHOS USE SMARTSET 32377 03/23/2024 03/23/2023, 0 07/12/2022 Lipid Panel 06/21/2024 [...] Diagnosis Primary hypertension- Primary Unspecified essential hypertension Cerebrovascular accident (CVA) due to embolism of 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 (HCC) Tobacco dependence Tobacco use disorder Stage 3a chronic kidney disease (HCC) documented in this encounter Advance Directives Documents on File Type Date Recorded 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
--- OUTSIDE RECORDS SUMMARY | 2023-10-21 22:42 | External Medical Summary | Summary of Care ---
Author Name Unknown Organization [facility] Address [address] [facility] [place] [address] Phone [phone] Care Team Providers Care Roll On Worker Name Role Phone Unavailable Primary Care Provider Unavailabl e Reason for Visit * Reason Onset Date Comments Medication Refill 09/29/2023 Encounter Details Date Type Department Care Team (Late st Contact Info) Description 09/29/2023 Refill Family Medicine [address] [phone] Matt Self PA-C [address] [place] [address] [place], [place] [id number] Stage 3a chronic kidney disease (HCC); Hypertensive kidney disease with stage 3a chronic kidney disease (HCC); Primary hypertension Allergies No known active allergiesdocumented as of this encounter (statuses as of 09/29/2023) Medications Medication Sig Dispensed Refills Start Date [...] once daily 90 Tablet 1 09/29/2023 Active Losartan Potassium 100 MG Oral Tablet (Cozaar)Indications :Stage 3a chronic kidney disease (HCC),Hypertensive kidney disease with stage 3a chronic kidney disease (HCC),Primary hypertension Take 1 tablet by mouth once daily 90 Tablet 1 03/23/2023 09/29/2023 Discontinued (Refill) documented as of this encounter (statuses as of 09/29/2023) Active Problems Problem Noted Date Diagnosed Date [...] as of this encounter (statuses as of 09/29/2023) Resolved Problems Problem Noted Date Diagnosed Date Resolved Date Other abnormal glucose 01/11/201012/03 Overview: Glucose 180 Acute. Elevated C-reactive protein (CRP) 11/23/2006 12/04/2019 Overview: CRP 6.96 Acute. Hemorrhoids, external without complications 2002 12/04/2019 Overview: Acute. Polyneuropathy in other dise ases classified elsewhere 02/01/2001 02/21/2022 ADHESIVE ARACHNOIDITIS 12/03 Overview: Acute. DENTURES 12/04/2019 Overview: Historical. documented as of this encounter (statuses as of 09/29/2023) Immunizations Name Administration Dates Next Due HEP [...] encounter Miscellaneous Notes * Telephone Encounter - Matt Slef PA-C - 09/29/2023 2:32 PM EDTSigned Prescriptions: Disp Refills Losartan Potassium 100 MG Oral Tablet (Coz*90 Tab*1 Sig: Take 1 tablet by mouth once daily Authorizing Provider: MATT SELF * Telephone Encounter - Tammie Shabazz LPN - 09/29/2023 2:10 PM EDT Pending Prescriptions: Disp Refills Losartan Potassium 100 MG Oral Tablet (Co*90 Tab*1 Sig: Take 1 tablet by mouth once daily Last Visit: 09/06/2023 (in office), Visit date not found (telemedicine) Next Visit: Visit date not found Last date the medication was ordered: 03/23/23 Patient Active Problem List Diagnosis Code Chronic [...] due to embolism Z86.73 Tobacco dependence F17.200 Labs: Lab Results Component Value Date/Time CREATININE - [facility] 1.3 (H) 07/12/2023 11:46 AM CREATININE - [facility] 1.2 04/15/2020 04:50 PM CREATININE, RANDOM URINE - [facility] 57 07/12/2022 03:26 PM CREATININE-OUTSIDE LAB 1.4 (A) 01/01/2018 12:00 AM Lab Results Component Value Date/Time POTASSIUM - [facility] 4.1 07/12/2023 11:46 AM POTASSIUM - [facility] 4.3 04/15/2020 04:50 PM POTASSIUM-OUTSIDE LAB 3.8 01/01/2018 12:00 AM Lab Results Component Value Date/Time TSH - [facility] 2.44 11/10/2021 03:06 PM TSH - [facility] 1.66 11/22/2006 10:44 AM Lab Results Component Value Date/Time LDL CHOLESTEROL (CALCULATED) - [facility] 143 (H) 06/21/2019 07:56 AM LDL CHOLESTEROL (CALCULATED) - [facility] 128 (H) 08/13/2008 04:19 PM Lab Results Component Value Date/Time ALT - [facility] 10 07/12/2022 03:26 PM ALT - [facility] <5 (L) 04/15/2020 04:50 PM Hemoglobin AIC Results: Lab Results Component Value Date/Time HEMOGLOBIN A1C - [facility] 5.4 2011 09:55 AM documented in this encounter Plan of Treatment Upcoming Encounters Date Type Department Care Team (Late st Contact Info) Description 10/02/2023 12:40 PM EDT Office Visit Neurology [facility] [address] [place] [address] Maryanne Tran PA-C [address] [place] [address] 10/30/2023 10:30 AM EDT Office Visit Cardiology, [facility] [address] [place] [address] Luke Baumann MD [address] [place] [address] Health Maintenance Due Date Last Done Comments Cologuard 1999 Sigmoidoscopy 1999 Lung Cancer Screening 2004 Zoster Vaccines (1 of 2) 2004 Fecal Occult Blood Test 08/28/2008 08/29/2007 Pneumococcal Vaccine: 65+ Years (2 of 2 - PCV) 08/13/2009 08/13/2008 Depression Screening 12/16/2020 12/17/2019 Colonoscopy 03/23/2021 03/23/2018, 03/23/2018 Colorectal Cancer Screening 03/23/2021 COVID-19 Vaccine ( season) 2023 Albumin/Creatinine Ratio 07/12/2023 07/12/2022 CKD HGB USE SMARTSET 18073 07/12/202307/12, 11/10/2021, 06/21/2021, Additional history exists GFR 01/10/2024 07/12/2023, 02/27, 07/12/2022, Additional history exists Influenza Vaccine (FLU shot) (Season Ended) 2024 05/17/2007, 05/15/2006, 05/19/2005 CKD PHOS USE SMARTSET [id number] 03/23/2024 03/23/2023, 0 07/12/2022 Lipid Panel 06/21/2024 [...] as of this encounter Visit Diagnoses Diagnosis Stage 3a chronic kidney disease (HCC) Hypertensive kidney disease with stage 3a chronic kidney disease (HCC) Primary hypertension Unspecified essential hypertension documented in this encounter Advance Directives Documents on File Type Date Recorded 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
--- OUTSIDE RECORDS SUMMARY | 2023-10-21 22:42 | External Medical Summary | Summary of Care ---
Author Name Unknown Organization [facility] Address [address] [facility] [place] [address] Phone [phone] Care Team Providers Care Museum Preparator Name Role Phone Unavailable Primary Care Provider Unavailabl e Reason for Visit * Reason Comments Acute Encounter Details Date Type Department Care Team (Late st Contact Info) Description 09/01/2023 11:20 AM EDT Office Visit Family Medicine [address] [place] [id number] Holly Guerra PA-C [address] [place] [address] [place] [phone] Dizziness* Allergies No known active allergiesdocumented as of this encounter (statuses as of 09/01/2023) Medications Medication Sig Dispensed Refills Start Date End Date Status Losartan Potassium 100 MG Oral Tablet (Cozaar)Indications:S tage 3a chronic kidney disease (HCC),Hypertensive kidney disease with stage 3a chronic kidney disease (HCC),Primary hypertension Take 1 tablet by mouth once daily 90 Tablet 1 03/23/2023 Active Aspirin 81 MG Oral Tablet Delayed Release Take 1 Tablet by mouth in the morning. 0 07/06/2023 Active hydroCHLOROthiazide 12.5 MG Oral Capsule Take 1 Capsule by mouth in the morning. 90 Capsule 1 07/31/2023 Active amLODIPine Besylate 10 MG Oral Tablet (Norvasc) Take 1 Tablet by mouth in the morning. 90 Tablet 1 07/31/2023 Active Atorvastatin Calcium 40 MG Oral Tablet (Lipitor) Take 1 Tablet by mouth in the morning. 90 Tablet 1 07/31/2023 Active documented as of this encounter (statuses as of 09/01/2023) Active Problems Problem Noted Date Diagnosed Date [...] as of this encounter (statuses as of 09/01/2023) Resolved Problems Problem Noted Date Diagnosed Date Resolved Date Other abnormal glucose 01/11/201012/03 Overview: Glucose 180 Acute. Elevated C-reactive protein (CRP) 11/23/2006 12/04/2019 Overview: CRP 6.96 Acute. Hemorrhoids, external without complications 2002 12/04/2019 Overview: Acute. Polyneuropathy in other dise ases classified elsewhere 02/01/2001 02/21/2022 ADHESIVE ARACHNOIDITIS 12/03 Overview: Acute. DENTURES 12/04/2019 Overview: Historical. documented as of this encounter (statuses as of 09/01/2023) Immunizations Name Administration Dates Next Due HEP [...] 2 55.4 Started: 1969 Smokeless Tobacco: Never Tobacco Cessation:Ready to Q uit: Not Asked; Counseling Given: Not Answered Comments:age 18 Alcohol Use Standard Drinks/Week Comments [...] Sign Reading Time Taken Comments Blood Pressure 140/78 09/01/2023 11:09 AM EDT Pulse 80 09/01/2023 11:09 AM EDT Temperature 36 C (96.8 F) 09/01/2023 11:09 AM EDT Respiratory Rate - - Oxygen Saturation - - Inhaled Oxygen Concentration - - Weight 71.2 kg (157 lb) 09/01/2023 11:09 AM EDT Height - - Body Mass Index 22.53 02/22/2023 10:23 AM EDT documented in this encounter Progress Notes * Holly Guerra PA-C - 09/01/2023 11:03 AM EDT Nursing Notes: Momo To LPN 09/01/23 1114 Signed Chief Complaint Patient presents with Acute Sx started 08/26 were whole right side from head to toe was numb, lightheaded/dizziness, pressure in his eyes, head ache. While all this was going on pt's BP was 142/80. BP this morning 08/27 was 162/98. Started to Improve, but just does not feel right. Pt quit taking HCTZ 08/22/23 because of having pressure behind his eyes, not seeing right, headachesand red swollen hands. Thinks from HCTZ is causing the issues. Pt stopped med for 5 days and was improving then started again on 08/27 and symptoms return. BP at home this AM 110/78 BP in clinic 140/78 The patient has been properly identified by confirmation of name and date of . Pt here today with episodes of lightheadedness/dizziness, pressure behind his eyes, headache. Sx started 08/26. BP was ok while having these sx. He had stopped his HCTZ on 08/21 because he didn't feel right on it - he was having the pressure behind his eyes, headaches. He started it again on 08/27 and the sx started to return. Thinks the HCTZ is the cause of the sx. BP ok today. He is worried that heis having mini strokes. Review of patient's allergies indicates: No Known Allergies Current Outpatient Medications Medication Sig Dispense Refill Losartan Potassium 100 MG Oral Tablet (Cozaar) Take 1 tablet by mouth once daily 90 Tablet 1 Aspirin 81 MG Oral Tablet Delayed Release Take 1 Tablet by mouth in the morning. (Patient not taking: Reported on 08/03/2023) hydroCHLOROthiazide 12.5 MG Oral Capsule Take 1 Capsule by mouth in the morning. 90 Capsule 1 amLODIPine Besylate 10 MG Oral Tablet (Norvasc) Take 1 Tablet by mouth in the morning. 90 Tablet 1 Atorvastatin Calcium 40 MG Oral Tablet (Lipitor) Take 1 Tablet by mouth in the morning. 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 GENERAL: alert and mild distress A:Dizziness (Primary) Pt had an episode of dizziness in the exam room. With all of his sx, he needs to go to ER to be evaluated. Wanted to call ambulance but pt refused. will drive him over. Any questions/problems, please call. If anything changes, worsens, develops new sx, please call [facility]. Follow Up: Return if symptoms worsen or fail to improve. Holly Guerra PA-C documented in this encounter Nursing Notes * Momo To LPN - 09/01/2023 11:02 AM EDT Chief Complaint Patient presents with Acute Sx started 08/26 were whole right side from head to toe was numb, lightheaded/dizziness, pressure in his eyes, head ache. While all this was going on pt's BP was 142/80. BP this morning 08/27 was 162/98. Started to Improve, but just does not feel right. Pt quit taking HCTZ 08/22/23 because of having pressure behind his eyes, not seeing right, headachesand red swollen hands. Thinks from HCTZ is causing the issues. Pt stopped med for 5 days and was improving then started again on 08/27 and symptoms return. BP at home this AM 110/78 BP in clinic 140/78 The patient has been properly identified by confirmation of name and date of . documented in this encounter Plan of Treatment Health Maintenance Due Date Last Done Comments LUNG CANCER SCREENING - USE SMARTSET 61834 2004 Zoster Vaccines (1 of 2) 2004 Pneumococcal Vaccine: 65+ Years (2 of 2 - PCV) 08/13/2009 08/13/2008 Depression Screening 12/16/2020 12/17/2019 COLONOSCOPY-EVERY 3 YRS AGES 18-100 03/23/2021 03/23/2018, 03/23/2018 COVID-19 Vaccine ( season) 2023 Albumin/Creatinine Ratio 07/12/2023 07/12/2022 CKD HGB USE SMARTSET 31959 07/12/202307/12, 11/10/2021, 06/21/2021, Additional history exists GFR 01/10/2024 07/12/2023, 02/27, 07/12/2022, Additional history exists Influenza Vaccine (FLU shot) (Season Ended) 2024 05/17/2007, 05/15/2006, 05/19/2005 CKD PHOS USE SMARTSET 66176 03/23/2024 03/23/2023, 0 07/12/2022 Lipid Panel 06/21/2024 06/21/2019, 07/27, 11/22/2006, Additional history exists DTaP,Tdap,and Td Vaccines (3 - Td or Tdap) 12/16/2029 12/17/2019, 08/16/2007 Hepatitis B Completed 04/28/2020, 0710/2019, 10/29/2019 AAA Screening Completed 07/26/2023 GARDASIL-HPV IMMUNIZATION SERIES Aged Out No longer eligible based on patient's age to complete this topic MENINGOCOCCAL (MENACTRA/MENVEO) Aged Out No longer eligible based on patient's age to complete this topic documented as of this encounter Medical Devices Not on filedocumented as of this encounter Visit Diagnoses Diagnosis Dizziness- Primary Dizziness and giddiness documented in this encounter Advance Directives Documents on File Type Date Recorded Patient Assembler 1St Shift Expl anation Advance Directives and Living Will 11/04/2004 Latest Code Status on File Code Status Date Activated Date Inactivated Comments None 11/04/2004 11:54 AM 11/04/2004 11:54 AM
--- OUTSIDE RECORDS SUMMARY | 2023-10-21 22:42 | External Medical Summary | Summary of Care ---
Author Name Unknown Organization [facility] Address [address] [place] [address] Phone [phone] Care Team Providers Care Matzo Forming Machine Operator Name Role Phone Unavailable Primary Care [...] disease (HCC) Primary hypertension Amanuel Shahid DO [address] [place] [id number] Referral ID Status Reason Start Date Expiration Date Visits Requested Visits Authorized [id number] Authorized Specialty Services Required 09/28/2023 999 999 [...] 09/28/2023 2:30 PM EDT Office Visit Cardiology, [facility] [address] [place] [address] Amanuel Shahid DO [address] [place] [address] Primary hypertension*; Cerebrovascular accident (CVA) due to [...] performed by Silas Michael MD at [facility] EEG 09/09/2011 normal HOLTER COMPLETE (COMM PRAC) 08/17/2011 no ectopy or bradycardia, NSR MRI L SPINE W WO CONTRAST 06/15/2005 post laminectiomy 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 Grammatical errors, random [...] of separately billed services. Amanuel Shahid DO [address] [address] 09/28/2023 documented in this encounter Nursing Notes [...] 10/30/2023 10:30 AM EDT Office Visit Cardiology, [facility] [place] [address] Luke Baumann MD [address] [place] [id number] Scheduled Orders Name Type Priority Associated Diagnoses [...] Ratio 07/12/2023 07/12/2022 CKD HGB USE SMARTSET 81654 07/12/202307/12, 11/10/2021, 06/21/2021, Additional history exists GFR 01/10/2024 07/12/2023, 02/27, 07/12/2022, Additional history exists Influenza Vaccine (FLU shot) (Season Ended) 2024 05/17/2007, 05/15/2006, 05/19/2005 CKD PHOS USE SMARTSET 17964 03/23/2024 03/23/2023, 0 07/12/2022 Lipid Panel 06/21/2024 [...] Documents on File Type Date Recorded Patient Dry Folder Cloth Expl anation Advance Directives and Living Will 11/04/2004 Latest Code Status on File Code Status Date Activated Date Inactivated Comments None 11/04/2004 11:54 AM 11/04/2004 11:54 AM
--- OUTSIDE RECORDS SUMMARY | 2023-10-21 22:42 | External Medical Summary | Summary of Care ---
Author Name Unknown Organization [facility] Address [address] [facility] [place] [address] Phone [phone] Care Team Providers Care Photographic Press Screwmaker Name Role Phone Unavailable Primary Care Provider Unavailabl e Reason for Visit * Reason Onset Date Comments Advice 09/13/2023 Encounter Details Date Type Department Care Team (Late st Contact Info) Description 09/13/2023 Telephone Family Medicine [address] [place] [address] Holly Guerra PA-C [address] [place] [address] [place] [phone] Advice Allergies No known active allergiesdocumented as of this encounter (statuses as of 09/18/2023) Medications Medication Sig Dispensed Refills Start Date End Date Status Losartan Potassium 100 MG Oral Tablet (Cozaar)Indication s:Stage 3a chronic kidney disease (HCC),Hypertensive kidney disease with stage 3a chronic kidney disease (HCC),Primary hypertension Take 1 tablet by mouth once daily 90 Tablet 1 03/23/2023 Active Atorvastatin Calcium 40 MG Oral Tablet (Lipitor) Take 1 Tablet by mouth in the morning. 90 Tablet 1 07/31/2023 Active Clopidogrel Bisulfate 75 MG Oral Tablet (Plavix) Take 1 Tablet by mouth in the morning. 0 09/05/2023 Active amLODIPine Besylate 10 MG Oral Tablet (Norvasc) Take 0.5 Tablets by mouth in the morning. 0 09/18/2023 Active amLODIPine Besylate 10 MG Oral Tablet (Norvasc) Take 1 Tablet by mouth in the morning. 90 Tablet 1 07/31/2023 09/18/2023 Discontinued documented as of this encounter (statuses as of 09/18/2023) Active Problems Problem Noted Date Diagnosed Date [...] as of this encounter (statuses as of 09/18/2023) Resolved Problems Problem Noted Date Diagnosed Date Resolved Date Other abnormal glucose 01/11/201012/03 Overview: Glucose 180 Acute. Elevated C-reactive protein (CRP) 11/23/2006 12/04/2019 Overview: CRP 6.96 Acute. Hemorrhoids, external without complications 2002 12/04/2019 Overview: Acute. Polyneuropathy in other dise ases classified elsewhere 02/01/2001 02/21/2022 ADHESIVE ARACHNOIDITIS 12/03 Overview: Acute. DENTURES 12/04/2019 Overview: Historical. documented as of this encounter (statuses as of 09/18/2023) Immunizations Name Administration Dates Next Due HEP [...] encounter Miscellaneous Notes * Telephone Encounter - Shama Conteh RN - 09/18/2023 12:15 PM EDT Pt aware * Telephone Encounter - Holly Guerra PA-C - 09/18/2023 12:10 PM EDT Can take half tablet of amlodipine. * Telephone Encounter - Della Baer OSA - 09/13/2023 6:32 PM EDT jean carlos calling on bp meds Bp running goodthrough day taking losartin and plavix and cholesterol pill at night. Running well through day. Morning high, but comes down. 128/76 5 days doing this. Late this afternoon 150/100 152/96 [address] he is taking the meds? Amlodipine cut in half if over 140, only did 5 days ago, broguht it down, came down so low was afraid to take it again and doctor siad to stop. What to do now? [phone] documented in this encounter Plan of Treatment Health Maintenance Due Date Last Done Comments Lung Cancer Screening 2004 Zoster Vaccines (1 of 2) 2004 Pneumococcal Vaccine: 65+ Years (2 of 2 - PCV) 08/13/2009 08/13/2008 Depression Screening 12/16/2020 12/17/2019 COLONOSCOPY-EVERY 3 YRS AGES 18-100 03/23/2021 03/23/2018, 03/23/2018 COVID-19 Vaccine ( - 2022- season) 2023 Albumin/Creatinine Ratio 07/12/2023 07/12/2022 CKD HGB USE SMARTSET 13172 07/12/202307/12, 11/10/2021, 06/21/2021, Additional history exists GFR 01/10/2024 07/12/2023, 02/27, 07/12/2022, Additional history exists Influenza Vaccine (FLU shot) (Season Ended) 2024 05/17/2007, 05/15/2006, 05/19/2005 CKD PHOS USE SMARTSET 69916 03/23/2024 03/23/2023, 0 07/12/2022 Lipid Panel 06/21/2024 [...] Documents on File Type Date Recorded Patient Auger Machine Offbearer Expl anation Advance Directives and Living Will 11/04/2004 Latest Code Status on File Code Status Date Activated Date Inactivated Comments None 11/04/2004 11:54 AM 11/04/2004 11:54 AM
--- OUTSIDE RECORDS SUMMARY | 2023-10-21 23:44 | External Medical Summary | Summary of Care ---
Author Name Unknown Organization [facility] Address [address] [facility] [place] [address] Phone [phone] Care Team Providers Care Florist Manager Name Role Phone Holly Guerra PA-C Primary Care Provider [phone] Reason for Visit * Reason Onset Date Comments Advice 10/21/2023 Blood pressure Encounter Details Date Type Department Care Team (Late st Contact Info) Description 10/21/2023 Telephone Family Medicine [address] [phone] Holly Guerra PA-C [address] [place] [phone] Advice (Blood pressure ) Allergies No known active allergiesdocumented as of this encounter (statuses as of 10/21/2023) Medications Medication Sig Dispensed Refills Start Date End Date Status Clopidogrel Bisulfate 75 MG Oral Tablet (Plavix) Take 1 Tablet by mouth every evening. 09/05/2023 Active amLODIPine Besylate 10 MG Oral Tablet (Norvasc) Take 0.5 Tablets by mouth every evening. 09/18/2023 Active Losartan Potassium 100 MG Oral Tablet (Cozaar)Indications:St age 3a chronic kidney disease (HCC),Hypertensive kidney disease with stage 3a chronic kidney disease (HCC),Primary hypertension Take 1 tablet by mouth once daily 90 Tablet 1 09/29/2023 Active documented as of this encounter (statuses as of 10/21/2023) Active Problems Problem Noted Date Diagnosed Date [...] as of this encounter (statuses as of 10/21/2023) Resolved Problems Problem Noted Date Diagnosed Date Resolved Date Other abnormal glucose 01/11/201012/03 Overview: Glucose 180 Acute. Elevated C-reactive protein (CRP) 11/23/2006 12/04/2019 Overview: CRP 6.96 Acute. Hemorrhoids, external without complications 2002 12/04/2019 Overview: Acute. Polyneuropathy in other dise ases classified elsewhere 02/01/2001 02/21/2022 ADHESIVE ARACHNOIDITIS 12/03 Overview: Acute. DENTURES 12/04/2019 Overview: Historical. documented as of this encounter (statuses as of 10/21/2023) Immunizations Name Administration Dates Next Due HEP [...] encounter Miscellaneous Notes * Telephone Encounter - Armida Soares MD - 10/21/2023 11:55 AM EDT Noted and agreed * Telephone Encounter - Kenya Huynh LPN - 10/21/2023 10:41 AM EDT is currently at work, just got message to go to ER. Reviewed all calls, email and MRI. Advised per neurology to go to ER. made aware. Thank you * Telephone Encounter - Nicole Piper OSA - 10/21/2023 8:50 AM EDT Patient called stating that neurologist called stating MRI showed patient had a stroke. Patient states patient is convinced that it is the blood pressure medication that was received from the mail away pharm (was a different color and size or shape) caused the stroke. She states his bloodpressures have been higher as well. Patient would like a new prescription for blood pressure refill sent to [facility]. Sohe can have the correct pills filled since he believes it was the pills from the mail away pharm that may have caused the stroke. Patients aware she may have to pay out of pocket for new rx since he is not due for medicationrefill documented in this encounter Plan of Treatment Upcoming Encounters Date Type Department Care Team (Late st Contact Info) Description 10/30/2023 10:30 AM EDT Office Visit Cardiology, [facility] [address] [place] [address] Luke Baumann MD [address] [place] [address] 01/09/2024 3:20 PM EDT Office Visit Neurology [facility] [address] [facility] [place] [address] Maryanne Tran PA-C [address] [place] [address] Health Maintenance Due Date Last Done Comments Cologuard 1999 Sigmoidoscopy 1999 Lung Cancer Screening 2004 Zoster Vaccines (1 of 2) 2004 Fecal Occult Blood Test 08/28/2008 08/29/2007 Pneumococcal Vaccine: 65+ Years (2 of 2 - PCV) 08/13/2009 08/13/2008 Depression Screening 12/16/2020 12/17/2019 Colonoscopy 03/23/2021 03/23/2018, 03/23/2018 Colorectal Cancer Screening 03/23/2021 COVID-19 Vaccine ( season) 2023 Albumin/Creatinine Ratio 07/12/2023 07/12/2022 CKD HGB USE SMARTSET 87010 07/12/202307/12, 11/10/2021, 06/21/2021, Additional history exists GFR 01/10/2024 07/12/2023, 02/27, 07/12/2022, Additional history exists Influenza Vaccine (FLU shot) (Season Ended) 2024 05/17/2007, 05/15/2006, 05/19/2005 CKD PHOS USE SMARTSET 26024 03/23/2024 03/23/2023, 0 07/12/2022 Lipid Panel 06/21/2024 [...] Documents on File Type Date Recorded Patient Reel Operator Expl anation Advance Directives and Living Will 11/04/2004 * No Code Status (Latest Code Status on File) Date Activated Date Inactivated Comments 11/04/2004 11:54 AM 11/04/2004 11:54 AM Care Teams Florist Manager Relationship Specialty Start Date End Date Holly Guerra PA-C [address] [place] [address] [place] [phone] PCP - General Physician Dental Chairside Assistant 10/02/23 documented as of this encounter
[2023-10-22 06:35] LABS: Appearance Urine Clear (Clear); Bacteria Urine Automated None Seen (None Seen); Bilirubin Urine Negative (Negative); Blood Urine Negative (Negative); Cast Urine Automated 0-2 /lpf (0-2); Color Urine Yellow; Epithelial Cell Urine Auto 0-2 /hpf (0-2); Glucose Urine UA Negative (Negative); Ketones Urine Negative (Negative); Leukocyte Esterase Urine 2+ (Negative); Nitrite Urine Negative (Negative); Protein Urine 1+ (Negative); RBC Urine Automated 0-2 /hpf (0-2); Specific Gravity Urine 1.018 (1.000-1.030); Urobilinogen Urine Negative (Negative); WBC Urine Automated 21-50 /hpf (0-5)
[2023-10-22 06:59] LABS: Basophils # (auto) 0.05 K/uL (0.00-0.20); Eosinophils # (auto) 0.41 K/uL (0.00-0.50); Eosinophils % (auto) 7.8 %; Hematocrit (blood only) 42.9 % (42.0-52.0); Hemoglobin 14.4 g/dl (14.0-18.0); Immature Granulocytes # (auto) 0.01 K/uL (0.01-0.20); Immature Granulocytes % (auto) 0.2 %; Lymphocytes # (auto) 0.88 K/uL (1.20-3.40); Lymphocytes % (auto) 16.8 %; Mean Corpuscular Hemoglobin 29.8 pg (25.0-34.0); Mean Corpuscular Hgb Conc 33.6 g/dL (32.0-36.0); Mean Corpuscular Volume 88.6 fL (80.0-100.0); Mean Platelet Volume 11.6 fL (9.4-12.4); Monocytes # (auto) 0.49 K/uL (0.11-0.59); Monocytes % (auto) 9.4 %; Neutrophils # (auto) 3.39 K/uL (1.40-6.50); Neutrophils % (auto) 64.8 %; Platelet Count 176 K/uL (130-400); RDW Standard Deviation 45.1 fL (36.4-46.3); Red Blood Count 4.84 M/uL (4.70-6.10); White Blood Count 5.23 K/ul (4.8-10.8)
[2023-10-22 07:33] LABS: BUN Creatinine Ratio 18.9 (10-20); Calcium 8.6 mg/dl (8.6-10.3); Chol HDL Ratio 4.2 (0-5); Creatinine Clr Calc Pharmacy 60.8 ml/min; Est GFR (African American) 78.1 ml/min; Est GFR (Non-African American) 67.4 ml/min
[2023-10-22] MEDS: LOSARTAN POTASSIUM 50 MG TAB PO SCH (08:52)
[2023-10-22] MEDS: amLODIPine BESYLATE 5 MG TAB PO SCH (08:53)
--- NOTE | 2023-10-22 11:43 | Hospitalist Progress Note ---
Date of Service October 22, 2023 Assessment & Plan (1) Stroke with cerebral ischemia: (2) Dizziness: (3) Vision changes: (4) Hypertension: (5) Tobacco use disorder: (6) CKD (chronic kidney disease) stage 3, GFR 30-59 ml/min: (7) AAA (abdominal aortic aneurysm): Plan This is a 68yo M with a PMH of history of CVA in Jun 2023, tobacco use disorder, HTN, CKD III who was directed to the ED from neurology after outpatient MRI from yesterday acute-subacute stroke findings. Subacute stroke H/o CVA in Jun 2023 on plavix who was having dizziness/visual changes over the past month, sent in by neuro after 10/20/23 outpatient brain MRI revealed : "subacute 6 mm infarct of the left superior lateral cerebellar hemisphere, estimated age less than 3 days. No hemorrhagic transformation. Mildly extensive scattered foci of T2 hyperintensity in the cerebral white matter compatible with chronic small vessel ischemic change." Was previously transitioned from aspirin to plavix due to s/e of acid reflux Discontinued atorvastatin last month due to s/e of dizziness / eye pain States he as been compliant with Plavix Decreased smoking from 3 ppd to 2 ppd since Jun [address] head wo con to r/o bleed, obtain echo with bubble study, a1c and fasting lipids Routine neuro consult -appreciate input and recommendation He has been eating and drinking normally and ambulating in the hallway without any difficulties He refused to take any aspirin even with PPI He was started with pravastatin 10 mg and was advised to look for any side effect and also take coq10 as an outpatient to decrease symptoms from statin He will be discharged home this afternoon Will have a Zio patch applied through his primary care physician HTN BP 124/63. 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 VTE ppx: SCDs until head CT, if okay will add SQ heparin Dispo: PCU Code: FULL PCP: DENISE Guerra Admission and Anticipated Discharge Date Admission Date: October 21, 2023 Subjective 10/22/2023 The patient was seen and examined in telemetry unit He has been stable and denies any symptoms whatsoever He has been ambulating in the hallway without any difficulties Will be discharged home this afternoon Review of Systems Review of Systems: All systems reviewed and are unremarkable except as noted below Physical Exam Physical Exam: Sitting at the edge of the bed without any acute distress Constitutional: well developed and well nourished; not ill appearing Eyes: PERRL, conjunctivae normal, anicteric sclerae ENMT: external ear and nose normal, oropharynx normal Neck: trachea midline, no thyromegaly Respiratory: no respiratory distress Auscultation: lungs clear to auscultation bilaterally Cardiovascular: Rate/Rhythm: regular rate and regular rhythm; not tachycardic Heart Sounds: normal S1 and normal S2; no murmur Extremities: no edema Gastrointestinal (Abdomen): Inspection/Auscultation: normal bowel sounds; abdomen not distended Percussion/Palpation: abdomen soft; abdomen nontender Musculoskeletal: No acute arthritis involving any of the joints Neurologic: normal touch/pain/proprioception and moves all extremities; no focal motor deficits Psychiatric: A+Ox3, euthymic affect Lymphatic: no cervical or axillary lymphadenopathy Results & Data Results & Data Vital Signs (Past 12 Hours) Vital Signs Temp Pulse Resp BP Pulse Ox O2 Del Method 10/22/23 08:27 36.6 C 65 18 138/77 95 Room Air 10/22/23 02:48 36.5 C 85 18 134/86 95 Room Air Laboratory Results Short CBC 10/21/23 10/22/23 Range/Units 12:10 06:29 WBC 5.61 5.23 (4.8-10.8) K/ul Hgb 14.4 14.4 (14.0-18.0) g/dl Hct 42.8 42.9 (42.0-52.0) % Plt Count 174 176 (130-400) K/uL BMP 10/21/23 10/22/23 12:10 06:29 Sodium 136 138 Potassium 3.7 4.0 Chloride 106 111 H Carbon Dioxide 22 21 BUN 21 21 Creatinine 1.28 1.11 Glucose 141 H 98 Calcium 9.0 8.6 Urine 10/22/23 Range/Units 06:00 Urine Color Yellow Urine Appearance Clear (Clear) Urine pH 6.0 (4.5-7.5) Ur Specific [place] 1.018 (1.000-1.030) Urine Protein 1+ H (Negative) Urine Glucose (UA) Negative (Negative) Medications Administered Current Inpatient Medications Acetaminophen (Acetaminophen 325 Mg Tab) 650 mg PO Q4H PRN PRN Reason: Pain or Fever Stop: 11/20/23 14:26 Amlodipine Besylate (Amlodipine Besylate 5 Mg Tab) 5 mg PO DAILY [facility] Stop: 11/21/23 08:59 Last Admin: 10/22/23 08:53 Dose: 5 mg Clopidogrel Bisulfate (Clopidogrel Bisulfate 75 Mg Tab) [facility] [place]: 11/20/23 16:44 Last Admin: 10/22/23 08:52 Dose: 75 mg Heparin Sodium (Porcine) (Heparin Sod 5,000 Unit/0.5 Ml Vial) 5,000 units SQ Q8 [facility] Stop: 11/20/23 14:44 Last Admin: 10/22/23 05:48 Dose: 5,000 units Losartan Potassium (Losartan Potassium 50 Mg Tab) 100 mg PO [facility] Stop: 11/21/23 08:59 Last Admin: 10/22/23 08:52 Dose: 100 mg Miscellaneous (Remove Nicoderm Patch) 1 each N/A DAILY@0859 [facility] Stop: 11/21/23 08:58 Last Admin: 10/22/23 08:52 Dose: 1 each Miscellaneous Information (Pharmacist Discharge Med Rec Consult) 1 each N/A UD PRN PRN Reason: Consult Stop: 11/20/23 14:26 Nicotine (Nicotine 21 Mg/24 Hr Tdsy) 1 patch TD [facility] Stop: 11/20/23 13:59 Last Admin: 10/22/23 10:53 Dose: Not Given Ondansetron HCl (Ondansetron Inj 2 Mg/Ml 2 Ml Vial) 4 mg IV Q6H PRN PRN Reason: Nausea Stop: 11/20/23 14:26 Polyethylene Glycol (Polyethylene (Miralax) 17 Gm Pack) 17 gm PO DAILY PRN PRN Reason: Constipation Stop: 11/20/23 14:26 Pravastatin Sodium (Pravastatin Sod 10 Mg Tab) 10 mg PO DAILY@1700 [facility] Stop: 11/20/23 16:59 Last Admin: 10/21/23 17:25 Dose: 10 mg
[2023-10-22] MEDS ORDERED: STROKE PATIENT DISCHARGE STA (12:38)
[2023-10-23 07:14] LABS: Estimated Average Glucose 117 mg/dl; Hemoglobin A1C 5.7 % (4.5-5.6)
--- NOTE | 2023-10-23 08:28 | Discharge Summary ---
Date of Service October 23, 2023 Admission HPI Per Admitting Provider This is a 68yo M with a PMH of history of CVA in Jun 2023, tobacco use disorder, HTN, CKD III who was directed to the ED from neurology after outpatient MRI from yesterday acute-subacute stroke findings. Back in June 2023, patient was admitted for a stroke and was started on antihypertensive medications, antiplatelet agents and cholesterol medications at that time. Within a month, HCTZ was discontinued a few months ago and aspirin was discontinued in favor of plavix due to side effects of nausea and acid reflux. Has been tolerating the Plavix since without issue. Patient was continuing to deal with intermittent dizziness and visual changes he was attributing to his BP meds and followed up with Dr. Shahid at the beginning of the month. His statin was discontinued at that time as he felt it was causing him "eye strain" and dizziness. Dr. Shahid was concerned dizziness and visual changes were of neurologic etiology and referred patient to neuro. Neuro ordered repeat brain MRI after seeing him a few weeks ago, which patient had yesterday, revealing a subacute 6 mm infarct of the left superior lateral cerebellar hemisphere, estimated age less than 3 days. No hemorrhagic transformation. Mildly extensive scattered foci of T2 hyperintensity in the cerebral white matter compatible with chronic small vessel ischemic change. Patient states he has been compliant with Plavix, losartan and amlodipine. Decr eased smoking from3 ppd to 2 ppd. Not interested in fully quitting at this time but trying to decrease. Denies any focal weakness, ambulatory dysfunction, difficulty speaking or swallowing. Denies any dizziness or visual changes at this time but is still happening intermittently. Denies any fever, chills, headache, chest pain, palpitations, nausea, vomiting, abdominal pain, dysuria, diarrhea constipation. Does endorse increased urination. Admission Exam Per Admitting Provider Physical Exam: General Appearance: WD/WN, vitals as above, NAD, sitting up in bed, pleasant, conversing easily Head: normocephalic, atraumatic Eyes: normal inspection, PERRL, conjunctivae normal, anicteric sclerae ENT: external ear and nose normal, oropharynx normal Neck: normal visual inspection, trachea midline, no thyromegaly Respiratory: normal respiratory effort, lungs clear to auscultation, no wheeze, rales, rhonchi. No accessory muscle use Cardiovascular: regular rate, rhythm, no murmur, normal peripheral pulses, no BLE edema. Vessels: no JVD Chest: normal inspection of chest Abdomen/GI: normal bowel sounds, soft, nontender, no hepatosplenomegaly Extremities/Musculoskeletal: no cyanosis or clubbing, extremities motor stre ngth 5/5 Neurologic: PERRL, EOMI, accommodation nl, no face palsy, no dysarthria, CN's II-XI intact bilaterally and moves all extremities Psychiatric: A+Ox3, euthymic affect Skin: no rashes, normal color, warm/dry Principal Diagnosis Subacute stroke Discharge Exam Sitting at the edge of the bed without any acute distress Constitutional well developed and well nourished; not ill appearing Eyes PERRL, conjunctivae normal, anicteric sclerae ENMT external ear and nose normal, oropharynx normal Neck trachea midline, no thyromegaly Respiratory no respiratory distress Auscultation: lungs clear to auscultation bilaterally Cardiovascular Rate/Rhythm: regular rate and regular rhythm; not tachycardic Heart Sounds: normal S1 and normal S2; no murmur Extremities: no edema Gastrointestinal (Abdomen) Inspection/Auscultation: normal bowel sounds; abdomen not distended Percussion/Palpation: abdomen soft; abdomen nontender Neurologic normal touch/pain/proprioception and moves all extremities; no focal motor deficits Psychiatric A+Ox3, euthymic affect Lymphatic no cervical or axillary lymphadenopathy Discharge Data Allergies Allergy/AdvReac Type Severity Reaction Status Date / Time No Known Allergies Allergy Verified 10/21/23 17:01 Consultations 10/21/23 12:01 ED Decision to Admit Stat 10/21/23 14:27 Consult Neurology Routine Ordered Studies 10/21/23 14:27 CT head/brain wo con Routine Hospital Course (1) Stroke with cerebral ischemia: (2) Dizziness: (3) Vision changes: (4) Hypertension: (5) Tobacco use disorder: (6) CKD (chronic kidney disease) stage 3, GFR 30-59 ml/min: (7) AAA (abdominal aortic aneurysm): Plan This is a 68yo M with a PMH of history of CVA in Jun 2023, tobacco use disorder, HTN, CKD III who was directed to the ED from neurology after outpatient MRI from yesterday acute-subacute stroke findings. Subacute stroke H/o CVA in Jun 2023 on plavix who was having dizziness/visual changes over the past month, sent in by neuro after 10/20/23 outpatient brain MRI revealed : "subacute 6 mm infarct of the left superior lateral cerebellar hemisphere, es timated age less than 3 days. No hemorrhagic transformation. Mildly extensive scattered foci of T2 hyperintensity in the cerebral white matter compatible with chronic small vessel ischemic change." Was previously transitioned from aspirin to plavix due to s/e of acid reflux Discontinued atorvastatin last month due to s/e of dizziness / eye pain States he as been compliant with Plavix Decreased smoking from 3 ppd to 2 ppd since Jun [address] head wo con to r/o bleed, obtain echo with bubble study, a1c and fasting lipids Routine neuro consult -appreciate input and recommendation He has been eating and drinking normally and ambulating in the hallway without any difficulties He refused to take any aspirin even with PPI He was started with pravastatin 10 mg and was advised to look for any side effect and also take coq10 as an outpatient to decrease symptoms from statin He will be discharged home this afternoon Will have a Zio patch applied through his primary care physician HTN BP 124/63. 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 VTE ppx: SCDs until head CT, if okay will add SQ heparin Dispo: PCU Code: FULL PCP: DENISE Guerra Total Time Total Time Spent Total Time Spent (In Minutes): 35 minutes Discharge Plan Discharge Items Patient Disposition: Home - Self-Care Reason For Visit: STROKE, SENT FROM NEURO Discharge Diagnosis: Subacute stroke Condition on Discharge: Good Activity: Resume your previous activity Non-emergency contact: Primary Care Provider Call non-emergency contact if: you have any medication questions and your symptoms worsen Follow-up/Referrals: Holly Guerra PA-C [Primary Care Provider] - (Your doctor's office will call you with an appointment within 7 days) Diet: Heart Healthy Addtl Attending Provider Instructions: Please take precautions to avoid falls Take your medications as advised My nurse will give you call with an appointment to get Zio patch for your heart monitoring from your doctors office Please keep appointments with the healthcare providers Pending Studies at Discharge: No Stand-Alone Forms: My [facility], Smoking Cessation, Medications to Prevent Stroke Medications and DC Order Prescriptions: New nicotine [Nicoderm CQ] 21 mg/24 hr Patch 24 Hour 1 patch transdermal QAM Qty: 28 0RF pravastatin 10 mg Tablet 10 mg PO DAILY@1700 Qty: 30 0RF Continued losartan 100 mg tablet 100 mg PO QAM clopidogrel [Plavix] 75 mg tablet 75 mg PO QAM amlodipine 10 mg tablet 5 mg PO DAILY Discharge Orders: Discharge Order (Routine); Ordered 10/22/23 Ordered By: Tyshawn Caruso Admission Data Admit Date/Time: 10/21/23 12:18 Attending Provider: Tyshawn Caruso Admit Provider: Tyshawn Caruso Primary Care Provider: Holly Guerra Other Providers: Jazmin Meyers Nada Other Interventions: Discharge Summary Assessment (RN) Last Done: 10/22/23 12:57
== END 2023-10-22 13:14 | disposition home or self-care (01) | DRG 66 ==
LOC: ED 11:36 → 2E 12:18